=== PATIENT | male | born 1970 | race Caucasian/White ===

== ENCOUNTER 2017-12-30 14:41 | Emergency (ER) | payer OTHER ==
[2017-12-30] MEDS ORDERED: HYDROCODONE/CHLORPHEN 5 ML/OSYR ONE (15:33)
--- NOTE | 2017-12-30 15:50 | RAD REPORT ---
EXAM DESCRIPTION: RAD - Chest Pa And Lat (2 Views) - 12/30/2017 3:43 pm CLINICAL HISTORY: Pneumonia Chest pain. COMPARISON: Chest Single View dated 09/01/2016; CHEST SINGLE VIEW dated 03/12/2014; CHEST SINGLE VIEW dated 07/20/2013; CHEST PA AND LAT 2 VIEW dated 07/05/2013 FINDINGS: The lungs are clear. The heart is normal in size. No displaced fractures. IMPRESSION: No acute or concerning finding suspected.
[2017-12-30] MEDS ORDERED: ACETAMINOPHEN 500 MG TAB ONE (16:20)
--- NOTE | 2017-12-30 16:20 | ER ---
Nurse's Notes [facility] Name: Kleber Cornejo Jr Age: 47 yrs Sex: Male : 1970 Arrival Date: 12/30/2017 Time: 14:44 Bed 30 Private MD: Diagnosis: Acute sinusitis;Bronchitis, not specified as acute or chronic Presentation: 12/30 15:00 Presenting complaint: Patient states: Cough, cold, congestion for 2 days. Transition of care: patient was not received from another setting of care. Onset of symptoms was December 28, 2017. Risk Assessment: Do you want to hurt yourself or someone else? Patient reports no desire to harm self or others. Initial Sepsis Screen: Does the patient meet any 2 criteria? No. Patient's initial sepsis screen is negative. Does the patient have a suspected source of infection? No. Patient's initial sepsis screen is negative. Care prior to arrival: None. 15:00 Method Of Arrival: Ambulatory aj 15:00 Acuity: BRANDON 2 aj Triage Assessment: 15:01 General: Appears in no apparent distress. ill, Behavior is calm, cooperative, aj appropriate for age. Pain: Denies pain. EENT: Reports nasal congestion nasal discharge. Neuro: Level of Consciousness is awake, alert, obeys commands, Oriented to person, place, time, situation, Appropriate for age. Respiratory: Airway is patent Respiratory effort is even, unlabored, Respiratory pattern is regular, symmetrical. Respiratory: Reports cough that is productive. Derm: Skin is intact, is healthy with good turgor, Skin is pink, warm \T\ dry. normal. Historical: - Allergies: 15: No Known Allergies; aj - Home Meds: 15: aspirin 81 mg Oral TbEC 1 tab once daily [Active]; losartan Oral [Active]; aj - PMHx: 15:01 Hypertension; aj - PSHx: 15:01 Hernia repair; Tonsillectomy; aj - Immunization history:: Adult Immunizations up to date. - Social history:: Smoking status: Patient/guardian denies using tobacco, Patient uses alcohol, on a daily basis. - Ebola Screening: : Patient negative for fever greater than or equal to 101.5 degrees Fahrenheit, and additional compatible Ebola Virus Disease symptoms Patient denies exposure to infectious person Patient denies travel to an Ebola-affected area in the 21 days before illness onset No symptoms or risks identified at this time. Screenin:33 Abuse screen: Denies threats or abuse. Denies injuries from another. Nutritional mg2 screening: No deficits noted. Tuberculosis screening: No symptoms or risk factors identified. Fall Risk None identified. Assessment: 15:34 General: Appears in no apparent distress. comfortable, Behavior is calm, cooperative. mg2 Pain: Complains of pain in whole body Pain does not radiate. Pain currently is 4 out of 10 on a pain scale. Quality of pain is described as aching, Pain began gradually, 2-3 days ago. Neuro: Level of Consciousness is awake, alert, obeys commands, Oriented to person, place, time, situation. Cardiovascular: Capillary refill < 3 seconds Patient's skin is warm and dry. Respiratory: Airway is patent Respiratory effort is even, unlabored, Respiratory pattern is regular, symmetrical. GI: No signs and/or symptoms were reported involving the gastrointestinal system. : No signs and/or symptoms were reported regarding the genitourinary system. EENT: No signs and/or symptoms were reported regarding the EENT system. Derm: Skin is intact, Skin is pink, warm \T\ dry. normal. Musculoskeletal: No signs and/or symptoms reported regarding the musculoskeletal system. 16:30 Reassessment: Patient appears in no apparent distress at this time. Patient and/or mg2 family updated on plan of care and expected duration. Pain level reassessed. Patient is alert, oriented x 3, equal unlabored respirations, skin warm/dry/pink. Vital Signs: 15:01 BP 170 / 98; Pulse 68; Resp 16; Temp 98.7; Pulse Ox 99% on R/A; Weight 158.76 kg; aj Height 6 ft. 4 in. (193.04 cm); 15:36 BP 157 / 100; Pulse 75; Resp 18; Pulse Ox 100% on R/A; mg2 16:30 BP 160 / 90; Pulse 70; Resp 18; Pulse Ox 100% on R/A; mg2 15:01 Body Mass Index 42.60 (158.76 kg, 193.04 cm) aj ED Course: 14:44 Patient arrived in ED. mr 15:00 Triage completed. aj 15:01 Arm band placed on left wrist. Patient placed in an exam room. aj 15:04 Daniel Hooks, RN is Primary Nurse. mg2 15:07 Memo, Marilyn, HEAD OF ART-[facility]. snw 15:07 Erik Santos MD is Attending Physician. snw 15:36 Patient has correct armband on for positive identification. Call light in reach. Pulse mg2 ox on. NIBP on. Door closed. Warm blanket given. Administered Medications: 15:33 Drug: Tussionex Pennkinetic ER 5 ml Route: PO; mg2 16:24 Follow up: Response: No adverse reaction; Marked relief of symptoms mg2 16:16 Drug: Tylenol 1000 mg Route: PO; dm5 16:24 Follow up: Response: No adverse reaction; Medication administered at discharge. mg2 16:16 Not Given (Duplicate Order): Tylenol 650 mg PO once dm5 Outcome: 16:19 Discharge ordered by . snw 16:31 Patient left the ED. mg2 Signatures: Ariana Dan RN RN dmRosalee Ybarra RN RN aj Therrien, Shelly, FNP-C HEAD OF ART-[facility] Janey Hopkins Michele, RN RN mg2 Corrections: (The following items were deleted from the chart) 15:03 15:01 BP 170 / 112; Pulse 68bpm; Resp 16bpm; Pulse Ox 99% RA; Temp 98.7F; 158.76 kg; aj Height 6 ft. 4 in.; BMI: 42.6; aj
--- NOTE | 2017-12-30 16:20 | EDPHYS ---
Physician Documentation [facility] Name: Kleber Cornejo Jr Age: 47 yrs Sex: Male : 1970 Arrival Date: 12/30/2017 Time: 14:44 Bed 30 Private MD: ED Physician Erik Santos HPI: 12/30 15:21 This 47 yrs old Male presents to ER via Ambulatory with complaints of Flu snw Symptoms. 15:21 The patient or guardian reports cough, flu symptoms, arthralgias, myalgias, no snw appetite. Onset: The symptoms/episode began/occurred suddenly, 3 day(s) ago, and became persistent. Associated signs and symptoms: Pertinent positives: rhinorrhea. Severity of symptoms: At their worst the symptoms were moderate. The patient has experienced a previous episode. The patient has not recently seen a physician. Historical: - Allergies: 15:01 No Known Allergies; aj - Home Meds: 15:01 aspirin 81 mg Oral TbEC 1 tab once daily [Active]; losartan Oral [Active]; aj - PMHx: 15:01 Hypertension; aj - PSHx: 15:01 Hernia repair; Tonsillectomy; aj - Immunization history:: Adult Immunizations up to date. - Social history:: Smoking status: Patient/guardian denies using tobacco, Patient uses alcohol, on a daily basis. - Ebola Screening: : Patient negative for fever greater than or equal to 101.5 degrees Fahrenheit, and additional compatible Ebola Virus Disease symptoms Patient denies exposure to infectious person Patient denies travel to an Ebola-affected area in the 21 days before illness onset No symptoms or risks identified at this time. ROS: 15:19 Eyes: Negative for injury, pain, redness, and discharge, ENT: Negative for injury, snw pain, and discharge, Neck: Negative for injury, pain, and swelling, Cardiovascular: Negative for chest pain, palpitations, and edema. 15:19 Abdomen/GI: Negative for abdominal pain, nausea, vomiting, diarrhea, and constipation, Back: Negative for injury and pain, : Negative for injury, bleeding, discharge, and swelling, MS/Extremity: Negative for injury and deformity, Skin: Negative for injury, rash, and discoloration, Neuro: Negative for headache, weakness, numbness, tingling, and seizure. 15:19 Constitutional: Positive for body aches, fatigue, malaise, poor PO intake. 15:19 Respiratory: Positive for cough, with green sputum. Exam: 15:15 Head/Face: Normocephalic, atraumatic. Eyes: Pupils equal round and reactive to light, snw extra-ocular motions intact. Lids and lashes normal. Conjunctiva and sclera are non-icteric and not injected. Cornea within normal limits. Periorbital areas with no swelling, redness, or edema. ENT: Nares patent. No nasal discharge, no septal abnormalities noted. Tympanic membranes are normal and external auditory canals are clear. Oropharynx with no redness, swelling, or masses, exudates, or evidence of obstruction, uvula midline. Mucous membranes moist. Neck: Trachea midline, no thyromegaly or masses palpated, and no cervical lymphadenopathy. Supple, full range of motion without nuchal rigidity, or vertebral point tenderness. No Meningismus. Chest/axilla: Normal chest wall appearance and motion. Nontender with no deformity. No lesions are appreciated. Cardiovascular: Regular rate and rhythm with a normal S1 and S2. No gallops, murmurs, or rubs. Normal PMI, no JVD. No pulse deficits. 15:15 Abdomen/GI: Soft, non-tender, with normal bowel sounds. No distension or tympany. No guarding or rebound. No evidence of tenderness throughout. Back: No spinal tenderness. No costovertebral tenderness. Full range of motion. Skin: Warm, dry with normal turgor. Normal color with no rashes, no lesions, and no evidence of cellulitis. MS/ Extremity: Pulses equal, no cyanosis. Neurovascular intact. Full, normal range of motion. Neuro: Awake and alert, GCS 15, oriented to person, place, time, and situation. Cranial nerves II-XII grossly intact. Motor strength 5/5 in all extremities. Sensory grossly intact. Cerebellar exam normal. Normal gait. Psych: Awake, alert, with orientation to person, place and time. Behavior, mood, and affect are within normal limits. 15:15 Constitutional: The patient appears alert, obese, uncomfortable. 15:15 Respiratory: the patient does not display signs of respiratory distress, Respirations: normal, Breath sounds: + upper airway congestion. wheezing: Vital Signs: 15:01 BP 170 / 98; Pulse 68; Resp 16; Temp 98.7; Pulse Ox 99% on R/A; Weight 158.76 kg; aj Height 6 ft. 4 in. (193.04 cm); 15:36 BP 157 / 100; Pulse 75; Resp 18; Pulse Ox 100% on R/A; mg2 16:30 BP 160 / 90; Pulse 70; Resp 18; Pulse Ox 100% on R/A; mg2 15:01 Body Mass Index 42.60 (158.76 kg, 193.04 cm) aj MDM: 15:08 Patient medically screened. snw 16:23 Data reviewed: vital signs, nurses notes. Data interpreted: Pulse oximetry: on room air snw is 100 %. Counseling: I had a detailed discussion with the patient and/or guardian regarding: the historical points, exam findings, and any diagnostic results supporting the discharge/admit diagnosis, the presence of at least one elevated blood pressure reading (>120/80) during this emergency department visit, radiology results, the need for outpatient follow up, to return to the emergency department if symptoms worsen or persist or if there are any questions or concerns that arise at home. Special discussion: I have referred the patient to see his PCP for further evaluation of high blood pressure. Based on the history and exam findings, there is no indication for further emergent testing or inpatient evaluation. I discussed with the patient/guardian the need to see the primary care provider for further evaluation of the symptoms. 12/30 15:03 Order name: Flu aj 12/30 15:21 Order name: Chest Pa And Lat (2 Views) XRAY snw 12/30 16:04 Order name: RAD; Complete Time: 16:13 EDMS Administered Medications: 15:33 Drug: Tussionex Pennkinetic ER 5 ml Route: PO; mg2 16:24 Follow up: Response: No adverse reaction; Marked relief of symptoms mg2 16:16 Drug: Tylenol 1000 mg Route: PO; dm5 16:24 Follow up: Response: No adverse reaction; Medication administered at discharge. mg2 16:16 Not Given (Duplicate Order): Tylenol 650 mg PO once dm5 Disposition: 16:33 Co-signature as Attending Physician, Erik Santos MD. rn Disposition: 12/30/17 16:19 Discharged to Home. Impression: Acute sinusitis, Bronchitis, not specified as acute or chronic. - Condition is Stable. - Discharge Instructions: Acute Bronchitis, Adult, Hypertension, Sinusitis, Adult. - Prescriptions for Tessalon Perles 100 mg Oral Capsule - take 1 capsule by ORAL route every 8 hours As needed; 15 capsule. Prednisone 20 mg Oral Tablet - take 2 tablet by ORAL route once daily for 5 days; 10 tablet. Albuterol Sulfate 90 mcg/actuation - inhale 1-2 puff by INHALATION route every 4-6 hours; 1 Inhaler. - Work release form, Medication Reconciliation Form, Thank You Letter, Antibiotic Education, Prescription Opioid Use form. - Follow up: Emergency Department; When: As needed; Reason: Worsening of condition. Follow up: Private Physician; When: As needed; Reason: Recheck today's complaints, Continuance of care, Re-evaluation by your physician. Signatures: Dispatcher [employer] EDAriana Blandon, RN RN dmRosalee Ybarra RN RN aj Therrien, Shelly, JUNIOR ASSISTANT MANAGER-C JUNIOR ASSISTANT MANAGER-[employer] Erik Santos MD MD rn Gardose, Michele, RN RN mg2 Corrections: (The following items were deleted from the chart) 16:31 16:19 12/30/2017 16:19 Discharged to Home. Impression: Acute sinusitis; Bronchitis, not mg2 specified as acute or chronic. Condition is Stable. Forms are Medication Reconciliation Form, Thank You Letter, Antibiotic Education, Prescription Opioid Use. Follow up: Emergency Department; When: As needed; Reason: Worsening of condition. Follow up: Private Physician; When: As needed; Reason: Recheck today's complaints, Continuance of care, Re-evaluation by your physician. snw
[2017-12-30 17:03] VITALS: TEMP 98.7
[2017-12-30 17:05] VITALS: O2SAT 100
[2017-12-30 17:06] VITALS: BP 160/90
== END 2017-12-30 16:31 | disposition home or self-care (01) ==
LOC: ER 14:41
DX: J40 Bronchitis, not specified as acute or chronic (principal); J01.90 Acute sinusitis, unspecified; I10 Essential (primary) hypertension
CPT/HCPCS: 71046; 87804; 99283

== ENCOUNTER 2018-02-19 04:10 | Emergency (ER) | payer OTHER ==
[2018-02-19] MEDS ORDERED: ALBUTEROL 2.5 MG/3 ML NEB SOL ONE (04:43)
[2018-02-19] MEDS ORDERED: IPRATROPIUM BROM 0.5MG/2.5ML ONE (04:43)
[2018-02-19] MEDS ORDERED: IBUPROFEN 200 MG TAB PO ONE (04:44)
[2018-02-19] MEDS ORDERED: IBUPROFEN 400 MG TAB ONE (04:44)
[2018-02-19] MEDS ORDERED: ACETAMINOPHEN 500 MG TAB ONE (04:45)
[2018-02-19 06:11] LABS: Absolute Lymphocytes (CBC) 0.8 K/uL (0.7-4.9); Absolute Monocytes 0.3 K/uL (0.1-1.3); Absolute Neutrophil 2.2 K/uL (1.8-8.0); Basophils % 0.4 % (0-1.3); Eosinophils % 3.5 % (0-4.4); Hematocrit 42.2 % (39.6-49.0); Lymphocytes % 23.3 % (15.3-44.8); MCH 32.9 pg (27.0-35.0); MCV 94.9 fL (80-100); MPV 7.5 fL (7.6-11.3); Monocytes % 9.3 % (3.3-12.3); Protime INR 0.97; RBC Red Blood Cell Count 4.45 M/uL (4.33-5.43)
[2018-02-19 06:27] LABS: ALT/SGPT 30 U/L (12-78); AST/SGOT 21 U/L (15-37); Albumin 3.7 g/dL (3.4-5.0); Alkaline Phosphatase 54 U/L (45-117); BUN Blood Urea Nitrogen 18 mg/dL (7-18); Bicarbonate 25 mmol/L (21-32); Bilirubin Direct 0.2 mg/dL (0-0.2); Bilirubin Total 0.7 mg/dL (0.2-1.0); Glucose Level 114 mg/dL (74-106); NT PRO-BNP 477 pg/mL (<125); Potassium 4.4 mmol/L (3.5-5.1); Protein, Total 7.6 g/dL (6.4-8.2); Sodium Level 138 mmol/L (136-145); Troponin (Emerg Dept Use Only) < 0.02 ng/mL (0.0-0.045)
--- NOTE | 2018-02-19 07:37 | RAD REPORT ---
EXAM DESCRIPTION: CT - Chest For Pe Angio - 02/19/2018 7:04 am CLINICAL HISTORY: Chest pain COMPARISON: None. TECHNIQUE: Dynamically enhanced axial 3 mm thick images of the chest were obtained during administra tion of <100> mL Isovue 370 IV contrast. Coronal and oblique reconstruction images were generated and reviewed. Exam utilizes a protocol for optimal evaluation of pulmonary arterial tree. Maximum intensity projections 3D imaging was utilized All CT scans are performed using dose optimization technique as appropriate and may include automated exposure control or mA/KV adjustment according to patient size. FINDINGS: The opacification of pulmonary arteries is somewhat suboptimal. A pulmonary embolus is not seen. A thoracic aortic aneurysm is not noted. A pleural effusion is not seen. A pericardial effusion is not seen. A lung consolidation is not present. IMPRESSION: Negative for a pulmonary embolism.
--- NOTE | 2018-02-19 07:38 | RAD REPORT ---
EXAM DESCRIPTION: Christos Ferreira (2 Views)02/19/2018 5:09 am CLINICAL HISTORY: Cough COMPARISON: 2017 FINDINGS: The lungs appear clear of acute infiltrate. The heart is normal size IMPRESSION: No acute abnormalities displayed
--- NOTE | 2018-02-19 08:51 | ER ---
Nurse's Notes [facility] Name: Kleber Cornejo Jr Age: 47 yrs Sex: Male : 1970 Arrival Date: 02/19/2018 Time: 04:14 Bed 17 Private MD: Diagnosis: Pleurisy;Acute upper respiratory infection, unspecified Presentation: 02/19 04:23 Presenting complaint: Patient states: left sided chest pain for 2 days,pain score of rr5 7/10 non radiating. cough for 2 1/2 weeks. Transition of care: patient was not received from another setting of care. Onset of symptoms was February 17, 2018. Risk Assessment: Do you want to hurt yourself or someone else? Patient reports no desire to harm self or others. Initial Sepsis Screen: Does the patient meet any 2 criteria? No. Patient's initial sepsis screen is negative. Does the patient have a suspected source of infection? No. Patient's initial sepsis screen is negative. Care prior to arrival: None. 04:23 Method Of Arrival: Ambulatory rr5 04:23 Acuity: BRANDON 3 rr5 Triage Assessment: 04:28 General: Appears in no apparent distress. comfortable, Behavior is calm, cooperative. rr5 Pain: Complains of pain in left sided Pain does not radiate. Pain currently is 7 out of 10 on a pain scale. Quality of pain is described as sharp, Pain began 2-3 days ago. Is intermittent, Aggravated by increased activity. EENT: No signs and/or symptoms were reported regarding the EENT system. Neuro: Level of Consciousness is awake, alert, obeys commands, Oriented to person, place, time, situation. Cardiovascular: Reports chest pain, Capillary refill < 3 seconds. Respiratory: Airway is patent. GI: No signs and/or symptoms were reported involving the gastrointestinal system. : No signs and/or symptoms were reported regarding the genitourinary system. Derm: No signs and/or symptoms reported regarding the dermatologic system. Musculoskeletal: Capillary refill < 3 seconds, Range of motion: intact in all extremities. Historical: - Allergies: 04:28 molds; rr5 - Home Meds: 04:28 aspirin 81 mg Oral TbEC 1 tab once daily [Active]; losartan Oral [Active]; Vitamin B-12 rr5 1,000 mcg Oral tab [Active]; - PMHx: 04:28 Hypertension; rr5 - Immunization history:: Adult Immunizations not up to date, Flu vaccine is not up to date. - Social history:: Patient/guardian denies using Smoking status: Patient/guardian denies using tobacco. - Ebola Screening: : Patient negative for fever greater than or equal to 101.5 degrees Fahrenheit, and additional compatible Ebola Virus Disease symptoms Patient denies exposure to infectious person Patient denies travel to an Ebola-affected area in the 21 days before illness onset. - Family history:: not pertinent. - Hospitalizations: : No recent hospitalization is reported. Screenin:47 Abuse screen: Denies threats or abuse. Denies injuries from another. Nutritional rr5 screening: No deficits noted. On. Tuberculosis screening: No symptoms or risk factors identified. Fall Risk None identified. Assessment: 04:42 General: Appears in no apparent distress. comfortable, Behavior is calm, cooperative. rr5 Pain: Complains of pain in left side of the chest Pain does not radiate. Pain currently is 7 out of 10 on a pain scale. Quality of pain is described as sharp, Pain began 2-3 days ago. Is intermittent. Neuro: Level of Consciousness is awake, alert, obeys commands, Oriented to person, place, time, situation. Cardiovascular: Reports chest pain, since 2 days Capillary refill < 3 seconds Patient's skin is warm and dry. Respiratory: Airway is patent. GI: No signs and/or symptoms were reported involving the gastrointestinal system. Abdomen is round. : No signs and/or symptoms were reported regarding the genitourinary system. EENT: No signs and/or symptoms were reported regarding the EENT system. Derm: No signs and/or symptoms reported regarding the dermatologic system. Musculoskeletal: Capillary refill < 3 seconds, Range of motion: intact in all extremities. 06:00 Reassessment: No changes from previously documented assessment. reassess by dr. sebastian grissom with orders and carried out. Patient states symptoms have not improved. 07:15 Reassessment: Patient appears in no apparent distress at this time. Patient and/or em family updated on plan of care and expected duration. Pain level reassessed. Patient is alert, oriented x 3, equal unlabored respirations, skin warm/dry/pink. Patient states feeling better. 08:30 Reassessment: Patient appears in no apparent distress at this time. Patient and/or em family updated on plan of care and expected duration. Pain level reassessed. Patient is alert, oriented x 3, equal unlabored respirations, skin warm/dry/pink. pending dispo. Vital Signs: 04:20 BP 154 / 94; Pulse 96; Resp 18; Temp 98.7(O); Pulse Ox 96% on R/A; Weight 158.76 kg; rr5 Height 6 ft. 1 in. (185.42 cm); Pain 7/10; 06:20 BP 155 / 108; Pulse 65; Resp 17; Pulse Ox 96% on R/A; Pain 5/10; rr5 07:15 BP 139 / 90; Pulse 64; Resp 18; Pulse Ox 98% on R/A; Pain 4/10; em 08:30 BP 157 / 88; Pulse 61; Resp 18; Pulse Ox 99% on R/A; Pain 4/10; em 04:20 Body Mass Index 46.18 (158.76 kg, 185.42 cm) rr5 ED Course: 04:14 Patient arrived in ED. es 04:16 Sebastian Felix MD is Attending Physician. wa 04:17 Osbaldo Blanchard RN is Primary Nurse. rr5 04:25 Triage completed. rr5 04:40 Arm band placed on. rr5 04:40 Pulse ox on. NIBP on. rr5 04:40 Door closed. rr5 04:41 Initial Neb Treatment Given as ordered Patient was instructed and evaluated on rr5 procedure. 04:44 Radiology exam delayed due to patient receiving breathing treatment at this time. sg4 04:47 Patient has correct armband on for positive identification. Bed in low position. Call rr5 light in reach. 05:[address] via wheelchair. rr5 05:06 X-ray completed. Patient moved to radiology via wheelchair. sg4 05:06 X-ray completed. Patient tolerated procedure well. sg4 05:08 Patient moved back from radiology. sg4 05:09 Chest Pa And Lat (2 Views) XRAY In Process Unspecified. EDMS 05:11 Patient moved back from CT. rr5 06:00 traffic monitor specialist on. Pulse ox on. NIBP on. rr5 06:00 Inserted saline lock: 20 gauge in left forearm, using aseptic technique. Blood rr5 collected. 06:[address] via wheelchair. rr5 07:03 Report given to michael RN and iban RN. rr5 07:05 Chest For Pe Angio In Process Unspecified. EDIL 08:43 Attending Physician role handed off by Sebastian Felix MD cha 08:43 Rene Pearson MD is Attending Physician. edda 09:07 No provider procedures requiring assistance completed. IV discontinued, intact, em bleeding controlled, No redness/swelling at site. Pressure dressing applied. Administered Medications: 04:40 Drug: Motrin 600 mg Route: PO; rr5 06:20 Follow up: Response: No adverse reaction; Pain is unchanged, physician notified rr5 04:40 Drug: Tylenol 1000 mg Route: PO; rr5 06:19 Follow up: Response: Pain is unchanged, physician notified rr5 04:41 Drug: Albuterol 2.5 mg Route: Inhalation; rr5 04:41 Drug: AtroVENT Aerosol 0.5 mg Route: Inhalation; rr5 09:01 Drug: Zithromax 500 mg Route: PO; em 09:06 Follow up: Response: Medication administered at discharge. em Outcome: 08:51 Discharge ordered by . [facility] 09:07 Discharged to home ambulatory. em 09:07 Condition: good 09:07 Discharge instructions given to patient, Instructed on discharge instructions, follow up and referral plans. medication usage, Demonstrated understanding of instructions, follow-up care, medications, Prescriptions given X 2. 09:10 Patient left the ED. em Signatures: Dispatcher [employer] [facility] Rene Pearson MD MD cha Salyer, Iban Montero, AUTOMOTIVE DESIGN DRAFTER AUTOMOTIVE DESIGN DRAFTER em Sebastian Felix MD MD wa Garcia, Susana 4 Osbaldo Blanchard, RN RN rr5
--- NOTE | 2018-02-19 08:51 | EDPHYS ---
Physician Documentation [facility] Name: Kleber Cornejo Jr Age: 47 yrs Sex: Male : 1970 Arrival Date: 02/19/2018 Time: 04:14 Bed 17 Private MD: ED Physician Rene Pearson HPI: 02/19 06:41 This 47 yrs old Male presents to ER via Ambulatory with complaints of Cold wa Symptoms, Cough, Sharp pain in side when cough. 06:41 The patient or guardian reports cough, that is constant, with productive sputum, that wa is green, that is yellow. Onset: The symptoms/episode began/occurred 2 week(s) ago, now with severe L lower rib pain with cough x 3 days. Severity of symptoms: At their worst the symptoms were moderate, in the emergency department the symptoms are actually worse. Modifying factors: The symptoms are alleviated by nothing, the symptoms are aggravated by nothing. Associated signs and symptoms: Pertinent positives: SOB, Pertinent negatives: chest pain, diarrhea, fever, rhinorrhea, sore throat, vomiting. The patient has not experienced similar symptoms in the past. The patient has not recently seen a physician. Historical: - Allergies: 04:28 molds; rr5 - Home Meds: 04:28 aspirin 81 mg Oral TbEC 1 tab once daily [Active]; losartan Oral [Active]; Vitamin B-12 rr5 1,000 mcg Oral tab [Active]; - PMHx: 04:28 Hypertension; rr5 - Immunization history:: Adult Immunizations not up to date, Flu vaccine is not up to date. - Social history:: Patient/guardian denies using Smoking status: Patient/guardian denies using tobacco. - Ebola Screening: : Patient negative for fever greater than or equal to 101.5 degrees Fahrenheit, and additional compatible Ebola Virus Disease symptoms Patient denies exposure to infectious person Patient denies travel to an Ebola-affected area in the 21 days before illness onset. - Family history:: not pertinent. - Hospitalizations: : No recent hospitalization is reported. ROS: 06:43 Constitutional: Negative for fever, chills, and weight loss, Eyes: Negative for injury, wa pain, redness, and discharge, ENT: Negative for injury, pain, and discharge, Neck: Negative for injury, pain, and swelling, Abdomen/GI: Negative for abdominal pain, nausea, vomiting, diarrhea, and constipation, : Negative for injury, bleeding, discharge, and swelling, Skin: Negative for injury, rash, and discoloration, Neuro: Negative for headache, weakness, numbness, tingling, and seizure, Psych: Negative for depression, anxiety, suicide ideation, homicidal ideation, and hallucinations. 06:43 Cardiovascular: Negative for chest pain, edema, palpitations. 06:43 Respiratory: Positive for cough, shortness of breath, at rest. 06:43 MS/extremity: Positive for pain, of the L lower rib cage with cough. 06:43 All other systems are negative. Exam: 06:44 Constitutional: This is a well developed, well nourished patient who is awake, alert, wa and in no acute distress. Head/Face: Normocephalic, atraumatic. Eyes: Pupils equal round and reactive to light, extra-ocular motions intact. Lids and lashes normal. Conjunctiva and sclera are non-icteric and not injected. Cornea within normal limits. Periorbital areas with no swelling, redness, or edema. ENT: Nares patent. No nasal discharge, no septal abnormalities noted. Tympanic membranes are normal and external auditory canals are clear. Oropharynx with no redness, swelling, or masses, exudates, or evidence of obstruction, uvula midline. Mucous membranes moist. Neck: Trachea midline, no thyromegaly or masses palpated, and no cervical lymphadenopathy. Supple, full range of motion without nuchal rigidity, or vertebral point tenderness. No Meningismus. Cardiovascular: Regular rate and rhythm with a normal S1 and S2. No gallops, murmurs, or rubs. Normal PMI, no JVD. No pulse deficits. Abdomen/GI: Soft, non-tender, with normal bowel sounds. No distension or tympany. No guarding or rebound. No evidence of tenderness throughout. Back: No spinal tenderness. No costovertebral tenderness. Full range of motion. Skin: Warm, dry with normal turgor. Normal color with no rashes, no lesions, and no evidence of cellulitis. MS/ Extremity: Pulses equal, no cyanosis. Neurovascular intact. Full, normal range of motion. Neuro: Awake and alert, GCS 15, oriented to person, place, time, and situation. Cranial nerves II-XII grossly intact. Motor strength 5/5 in all extremities. Sensory grossly intact. Cerebellar exam normal. Normal gait. Psych: Awake, alert, with orientation to person, place and time. Behavior, mood, and affect are within normal limits. 06:44 Chest/axilla: Inspection: normal, Palpation: tenderness, that is mild. 06:44 Respiratory: the patient does not display signs of respiratory distress, Respirations: normal, Breath sounds: coarse breath sounds bilaterally. scattered wheezes. 08:51 Musculoskeletal/extremity: DVT Exam: No signs of deep vein thrombosis. no pain, no edda swelling, no tenderness, negative Homans' sign noted on exam, no appreciated bluish discoloration, no erythema, no increased warmth. Vital Signs: 04:20 BP 154 / 94; Pulse 96; Resp 18; Temp 98.7(O); Pulse Ox 96% on R/A; Weight 158.76 kg; rr5 Height 6 ft. 1 in. (185.42 cm); Pain 7/10; 06:20 BP 155 / 108; Pulse 65; Resp 17; Pulse Ox 96% on R/A; Pain 5/10; rr5 07:15 BP 139 / 90; Pulse 64; Resp 18; Pulse Ox 98% on R/A; Pain 4/10; em 08:30 BP 157 / 88; Pulse 61; Resp 18; Pulse Ox 99% on R/A; Pain 4/10; em 04:20 Body Mass Index 46.18 (158.76 kg, 185.42 cm) rr5 MDM: 04:16 Patient medically screened. ut 06:47 Differential Diagnosis: Bronchitis Pneumonia Other PE, pneumothorax. Data reviewed: ut vital signs, nurses notes. Test interpretation: by ED physician or midlevel provider: EKG: HR 61. frequent PVCs. LAFB. 08:43 Patient medically screened. edda 02/19 05:49 Order name: Basic Metabolic Panel; Complete Time: 07:24 ut 02/19 05:49 Order name: CBC with Diff; Complete Time: 07:24 ut 02/19 05:49 Order name: LFT's; Complete Time: 07:24 ut 02/19 05:49 Order name: NT PRO-BNP; Complete Time: 07:24 ut 02/19 05:49 Order name: PT-INR; Complete Time: 07:24 ut 02/19 05:49 Order name: Troponin (emerg Dept Use Only); Complete Time: 07:24 ut 02/19 04:33 Order name: Chest Pa And Lat (2 Views) XRAY; Complete Time: 08:47 ut 02/19 06:54 Order name: Chest For Pe Angio; Complete Time: 08:14 EDMS 02/19 05:49 Order name: EKG; Complete Time: 05:50 ut 02/19 05:49 Order name: Cardiac monitoring; Complete Time: 06:19 ut 02/19 05:49 Order name: EKG - Nurse/Tech; Complete Time: 06:19 ut 02/19 05:49 Order name: IV Saline Lock; Complete Time: 06:19 ut 02/19 05:49 Order name: Labs collected and sent; Complete Time: 06:19 ut 02/19 05:49 Order name: O2 Per Protocol; Complete Time: 06:19 ut 02/19 05:49 Order name: O2 Sat Monitoring; Complete Time: 06:19 ut Administered Medications: 04:40 Drug: Motrin 600 mg Route: PO; rr5 06:20 Follow up: Response: No adverse reaction; Pain is unchanged, physician notified rr5 04:40 Drug: Tylenol 1000 mg Route: PO; rr5 06:19 Follow up: Response: Pain is unchanged, physician notified rr5 04:41 Drug: Albuterol 2.5 mg Route: Inhalation; rr5 04:41 Drug: AtroVENT Aerosol 0.5 mg Route: Inhalation; rr5 09:01 Drug: Zithromax 500 mg Route: PO; em 09:06 Follow up: Response: Medication administered at discharge. em Disposition: 02/19/18 08:51 Discharged to Home. Impression: Pleurisy, Acute upper respiratory infection, unspecified. - Condition is Stable. - Discharge Instructions: Pleurisy, Upper Respiratory Infection, Adult, Upper Respiratory Infection, Adult, [id number], Cough, Adult. - Prescriptions for Cheratussin AC 10- 100 mg/5 mL Oral liquid - take 10 milliliter by ORAL route every 4 hours; 180 milliliter. Ibuprofen 600 mg Oral Tablet - take 1 tablet by ORAL route every 8 hours As needed take with food; 21 tablet. Zithromax 500 mg Oral Tablet - take 1 tablet by ORAL route once daily for 5 days; 5 tablet. - Medication Reconciliation Form, Thank You Letter, Antibiotic Education, Prescription Opioid Use, Work release form form. - Follow up: Private Physician; When: 2 - 3 days; Reason: Recheck today's complaints, Continuance of care, Re-evaluation by your physician. - Problem is new. - Symptoms have improved. Signatures: Dispatcher [employer] [facility] Rene Pearson MD MD cha Munoz, Iban, CAR FERRY MASTER CAR FERRY MASTER em Fabien Felix MD MD wa Roque, Raymond, RN RN rr5 Corrections: (The following items were deleted from the chart) 06:54 05:50 Chest Angio+CT.RAD.BRZ ordered. [facility] 09:10 08:51 02/19/2018 08:51 Discharged to Home. Impression: Pleurisy; Acute upper em respiratory infection, unspecified. Condition is Stable. Forms are Medication Reconciliation Form, Thank You Letter, Antibiotic Education, Prescription Opioid Use. Follow up: Private Physician; When: 2 - 3 days; Reason: Recheck today's complaints, Continuance of care, Re-evaluation by your physician. Problem is new. Symptoms have improved. edda
[2018-02-19] MEDS ORDERED: AZITHROMYCIN 250 MG TAB ONE (09:07)
[2018-02-19 09:22] VITALS: TEMP 98.7
[2018-02-19 09:25] VITALS: BP 157/88; O2SAT 99
--- NOTE | 2018-02-19 18:48 | EKG ---
Test Date: 2018-02-19 Test Time: 06:11:57 Keyboarding Teacher: RR MEASUREMENT RESULTS: Intervals: Rate: 61 MA: 206 QRSD: 104 QT: 430 QTc: 432 Orange: P: 50 MA: 206 QRS: -55 T: 79 INTERPRETIVE STATEMENTS: Sinus rhythm with frequent premature ventricular complexes Left anterior fascicular block Inferior infarct, age undetermined Cannot rule out Anterior infarct, age undetermined Abnormal ECG Compared to ECG 09/01/2016 17:19:38 Sinus bradycardia no longer present Myocardial infarct finding still present Electronically Signed On 02-19-18 18:45:01 SOFTWARE QUALITY TEST ENGINEER by Ramon Marquez
== END 2018-02-19 09:10 | disposition home or self-care (01) ==
LOC: ER 04:10
DX: J06.9 Acute upper respiratory infection, unspecified (principal); R09.1 Pleurisy; I10 Essential (primary) hypertension; Z79.82 Long term (current) use of aspirin; Z91.048 Other nonmedicinal substance allergy status
CPT/HCPCS: 36415; 71046; 71275; 80048; 80076; 83880; 84484; 85025; 85610; 93005; 99285; Q9967

== ENCOUNTER 2019-08-16 04:35 | Emergency (ER) | payer OTHER ==
--- OUTSIDE RECORDS SUMMARY | 2019-08-16 04:37 | XMS REPORT ---
:1970 Author Organization [facility] t Address [address] [place] [address] Dr. Cunningham [address] [place] [id number] Care Team Providers Name Role Phone Unavailable Unavailable Unavailable Problems This patient has no known problems. Allergies, Adverse Reactions, Alerts This patient has no known allergies or adverse reactions. Medications This patient has no known medications.
--- OUTSIDE RECORDS SUMMARY | 2019-08-16 04:37 | XMS REPORT | Summary of Care ---
:1970 Author Organization [facility] Address [address] [place] [address] Care Team Providers Name Role Phone Selvin Gallardo MD Primary Care Provider Reason for Referral (Routine) Status Reason Specialty Diagnoses / Referred By Referred To Procedures Contact Contact Authorized Location Otolaryngology Diagnoses Cellulitis of left internal cheek Cheek mass Personal history of tobacco use Alex Gallardo Preference Procedures CONSULT/REFERRAL ENT MD Ferdinand Cabral [address] [place] [phone] [place], [place] Phone: [phone] Phone: Reason for Visit Reason Comments Follow-up 6 month follow up Mouth/Lip Problem Spot in side of his mouth , swollen and hurts LAB WORK Encounter Details Date Type Department Care Team Description 11/23/2018 Office Visit [facility] [place] Family Selvin Gallardo ntial hypertension (Primary Dx); Medicine - Rosa Gooden MD Medication [facility] [address] [place] [address] Cellulitis of left internal cheek; [place], [place] Cheek mass; [phone] Personal history of tobacco use; [phone] Nutritional counseling; Exercise counseling Allergies No Known Allergiesdocumented as of this encounter (statuses as of 11/23/2018) Medications Medication Sig Dispensed Refills Start Date End Date Status vitamin B-12 (VITAMIN Take 1 tablet by 0 07/06/2017 Active B-12) 1,000 mcg tablet mouth daily. aspirin (ADULT LOW Take 81 mg by 0 Active DOSE ASPIRIN) 81 mg EC mouth daily. tablet losartan 100 mg Take 1 tablet by 90 tablet 3 05/24/2018 Active tabletIndications: mouth daily. Essential hypertension amoxicillin 875 mg Take 1 tablet by 20 tablet 0 11/23/2018 Active tabletIndications: mouth 2 (two) Cellulitis of left times daily for internal cheek 10 days. documented as of this encounter (statuses as of 11/23/2018) Active Problems Problem Noted Date B12 deficiency 07/06/2017 Leukopenia 06/04/2017 Abnormal liver function test 06/04/2017 Obesity Seasonal allergies Hypertension Overview: Diagnosed around 2015 Abnormal EKG documented as of this encounter (statuses as of 11/23/2018) Social History Tobacco Use Types Packs/Day Years Used Date Never Smoker Smokeless Tobacco: Former User Alcohol Use Drinks/Week oz/Week Comments Yes 21 Cans of beer 12.6 Sex Assigned at Date Recorded Not on file Job Start Date Occupation Industry Not on file Not on file Not on file Travel History Travel Start Travel End No recent travel history available. documented as of this encounter Last Filed Vital Signs Vital Sign Reading Time Taken Comments Blood Pressure 127/86 11/23/2018 9:12 AM CDT Pulse 61 11/23/2018 9:12 AM CDT Temperature 36.9 C (98.4 F) 11/23/2018 8:39 AM CDT Respiratory Rate - - Oxygen Saturation - - Inhaled Oxygen Concentration - - Weight 171 kg (377 lb) 11/23/2018 8:39 AM CDT Height 193 cm (6' 4") 11/23/2018 8:39 AM CDT Body Mass Index 45.89 11/23/2018 8:39 AM CDT documented in this encounter Patient Instructions Patient InstructionsSelvin Gallardo MD - 11/23/2018 8:30 AM CDT Mouth and Throat Tumors Finding out you have a tumor is scary. You may wonder what effect it will have on your life. As you and your doctors decide on your treatment, some of your concerns will be resolved. And moving forward, your healthcare team can help you learn ways to help yourself. What is a tumor? A tumor is a mass of abnormal cells. It is either benign (slow growing, not cancerous) or malignant (fast growing, cancerous). Some tumors, especially cancerous ones, can be life-threatening. But most tumors can be treated. Risk factors for a cancerous tumor You are more likely to get a tumor of the mouth or throat if you: Smoke cigarettes, pipes, or cigars Use chewing tobacco or snuff Drink alcohol Take poor care of your teeth Are exposed to certain industrial chemicals Had a mouth or throat tumor in the past Have a human papillomavirus (HPV) infection Signs and symptoms of a tumor in the mouth If you have a mouth tumor, you or your doctor may have noticed one or more of the following: White or red patches on tissues or gums Pain that doesnt go away A sore that doesnt heal in a week or two Bleeding that doesnt stop after a few days A swelling or lump that doesnt go away Problems with your teeth, dentures, or chewing Signs and symptoms of a tumor in the throat If you have a throat tumor, you or your doctor may have noticed one or more of the following: Hoarseness that doesnt go away Trouble swallowing A lump in your neck Pain that doesnt go away Aching, pain, or pressure in your ear Persistent coughing with or without bloody sputum Date Last Reviewed: 02/12/201619997176-6619 [address] [employer]. [address] [place] [address]. All rights reserved. This information is not intended as a substitute for professional medical care. Always follow your healthcare professional's instructions. Mouth and Throat Tumors Finding out you have a tumor is scary. You may wonder what effect it will have on your life. As you and your doctors decide on your treatment, some of your concerns will be resolved. And moving forward, your healthcare team can help you learn ways to help yourself. What is a tumor? A tumor is a mass of abnormal cells. It is either benign (slow growing, not cancerous) or malignant (fast growing, cancerous). Some tumors, especially cancerous ones, can be life-threatening. But most tumors can be treated. Risk factors for a cancerous tumor You are more likely to get a tumor of the mouth or throat if you: Smoke cigarettes, pipes, or cigars Use chewing tobacco or snuff Drink alcohol Take poor care of your teeth Are exposed to certain industrial chemicals Had a mouth or throat tumor in the past Have a human papillomavirus (HPV) infection Signs and symptoms of a tumor in the mouth If you have a mouth tumor, you or your doctor may have noticed one or more of the following: White or red patches on tissues or gums Pain that doesnt go away A sore that doesnt heal in a week or two Bleeding that doesnt stop after a few days A swelling or lump that doesnt go away Problems with your teeth, dentures, or chewing Signs and symptoms of a tumor in the throat If you have a throat tumor, you or your doctor may have noticed one or more of the following: Hoarseness that doesnt go away Trouble swallowing A lump in your neck Pain that doesnt go away Aching, pain, or pressure in your ear Persistent coughing with or without bloody sputum Date Last Reviewed: 02/12/201619990679-2932 [employer]. [address] [place] [address]. All rights reserved. This information is not intended as a substitute for professional medical care. Always follow your healthcare professional's instructions. documented in this encounter Progress Notes Selvin Gallardo MD - 11/23/2018 8:30 AM CDT Cc: Chief Complaint Patient presents with Follow-up 6 month follow up-HTN Mouth/Lip Problem Spot in side of his mouth , swollen and hurts HPI Kleber Cornejo is a 48 year old male who presents today for HTN follow up. He is also complaining of a mass on the inside of his left cheek. He calls it a "gum ball". It has been there for some timebut it is enlarging lately and is more painful. He says during the day it gets better but when he gets up in the morning it has his left cheek and gum extremely swollen and painful. He has been abstinent from tobacco products for 5 years. HTN follow-up: Medication compliance: Good. Denies adverse medication side effects. Dietary compliance: Poor. Exercise frequency: None except some walking at work. Blood pressure readings: Doesn't self-monitor. Associated symptoms: None. Denies cp or SOB. Cardiovascular screening (ex. EKG, stress test) in the past 3 years?: Yes. Allergies Kleber has No Known Allergies. Medications Outpatient Medications Prior to Visit Medication Sig Dispense Refill losartan 100 mg tablet Take 1 tablet by mouth daily. 90 tablet 3 aspirin (ADULT LOW DOSE ASPIRIN) 81 mg EC tablet Take 81 mg by mouth daily. vitamin B-12 (VITAMIN B-12) 1,000 mcg tablet Take 1 tablet by mouth daily. No facility-administered medications prior to visit. Histories Past Medical History: Diagnosis Date Abnormal EKG B12 deficiency 07/06/2017 Hypertension Diagnosed around 2016 Obesity Seasonal allergies Past Surgical History: Procedure Laterality Date HERNIA REPAIR TONSILLECTOMY Social History Socioeconomic History Marital status: Single Spouse name: Not on file Number of children: Not on file Years of education: Not on file Highest education level: Not on file Occupational History Not on file Social Needs Financial resource strain: Not on file Food insecurity: Worry: Not on file Inability: Not on file Transportation needs: Medical: Not on file Non-medical: Not on file Tobacco Use Smoking status: Never Smoker Smokeless tobacco: Former User Substance and Sexual Activity Alcohol use: Yes Alcohol/week: 12.6 oz Types: 21 Cans of beer per week Drug use: Yes Types: Barbiturates Sexual activity: Not on file Lifestyle Physical activity: Days per week: Not on file Minutes per session: Not on file Stress: Not on file Relationships Social connections: Talks on phone: Not on file Gets together: Not on file Attends amish service: Not on file Active member of club or organization: Not on file Attends meetings of clubs or organizations: Not on file Relationship status: Not on file Intimate partner violence: Fear of current or ex partner: Not on file Emotionally abused: Not on file Physically abused: Not on file Forced sexual activity: Not on file Other Topics Concern Not on file Social History Narrative 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 Family History Problem Relation Age of Onset COPD (chronic obstructive pulmonary disease) Mother Thyroid Sister Review of Systems Constitutional: Negative. HENT: Positive for facial swelling. Eyes: Negative. Respiratory: Negative. Cardiovascular: Negative. Gastrointestinal: Negative. Genitourinary: Negative. Musculoskeletal: Negative. Skin: Negative. Neurological: Negative. Psychiatric/Behavioral: Negative. Endocrine: Endocrine negative Vital Signs BP 127/86 | Pulse 61 | Temp 36.9 C (98.4 F) (Oral) | Ht 6' 4" (1.93 m) | Wt 377 lb (171 kg)| BMI 45.89 kg/m Physical Exam Constitutional: He is oriented to person, place, and time. He appears well- developed and well-nourished. No distress. HENT: Head: Normocephalic and atraumatic. Right Ear: Tympanic membrane and ear canal normal. Left Ear: Tympanic membrane and ear canal normal. Nose: Nose normal. Right sinus exhibits no maxillary sinus tenderness and no frontal sinus tenderness. Left sinus exhibits no maxillary sinus tenderness and no frontal sinus tenderness. Mouth/Throat: Oropharynx is clear and moist and mucous membranes are normal. Oral lesions (fleshy mass-like area in the mid left buccal tissue w/ some associated tenderness and erythema) present. Abnormal dentition (multiple carious teeth). Eyes: Pupils are equal, round, and reactive to light. Conjunctivae are normal. No scleral icterus. Neck: Neck supple. No thyromegaly present. Cardiovascular: Normal rate, regular rhythm, normal heart sounds and intact distal pulses. Exam reveals no gallop and no friction rub. No murmur heard. Pulmonary/Chest: Effort normal and breath sounds normal. He has no wheezes. He has no rales. Musculoskeletal: He exhibits no edema. Lymphadenopathy: He has no cervical adenopathy. Neurological: He is alert and oriented to person, place, and time. Skin: Skin is warm and dry. No rash noted. No pallor. Psychiatric: He has a normal mood and affect. His behavior is normal. Nursing note and vitals reviewed. Assessment/Plan Diagnoses and all orders for this visit: Essential hypertension, Medication monitoring encounter Bp is very close to goal of <130/<80. Continue current medication(s). Low sodium diet/DASH diet. Exercise regularly. The patient was instructed to self monitor his blood pressure once daily varying the times when it is checked and to bring the record of readings to each office visit. The patient should follow-up sooner if the blood pressure is trending >/=130/80. - BASIC METABOLIC PANEL (NA, K, CL, CO2, GLUCOSE, BUN, CREATININE, CA) Nutritional counseling, Exercise counseling Nutritional/Exercise Counseling and Education: - Counseled on diet, exercise, weight control and goals - Follow-Up plan: -Follow up visit with BMI in 6 Months Cellulitis of left internal cheek, Cheek mass, Poor dentition, ersonal history of tobacco use Antibiotic treatment is warranted given his exam findings. The patient was told to be sure to complete the full antibiotic course. Recommended evaluation and management by an ENT specialist given hish/o chewing tobacco use. Referral initiated. I also encouraged him to have check-ups at least every 6 mos for routine dental care/cleanings. - amoxicillin 875 mg tablet; Take 1 tablet by mouth 2 (two) times daily for 10 days. - CONSULT/REFERRAL ENT Plan of care, desired health behaviors, goals, Ddx, and any prescribed medications were discussed with the patient. This visit did not involve counseling and coordination that comprised more than 50% of the visit time. Education resources and self-management tools were provided and reviewed with the AVS. Patient/guardian/family verbalized understanding and agrees to the plan of care. Barriers tocare: None. Ability to manage care: Good. Advanced care planning (living will) information was not given/offered to the patient to review for discussion at a future visit. If applicable, the [facility] database was accessed to review any controlled substance prescription claims data. If the patient is taking prescribed medications, the [facility] [facility] prescription claims data in [facility] was reviewed to assess patient compliance with the medication treatment plan. Follow-up: Return in about 6 months (around 05/26/2019) for annual physical (fasting). Follow-up sooner if any problems or concerns. Scribe Attestation Kaye Farrell , am scribing for, and in the presence of, Selvin Gallardo MD who performed the services described here-in. Kaye Dyson, November 23, 2018, 9:40 AM Physician Attestation ISelvin MD, personally performed the services described in this documentation , as scribed by, Kaye Dyson in my presence and it is both accurate and complete. Selvin Gallardo MD November 23, 2018, 9:40 AM Kasie ShainaMary - 11/23/2018 8:30 AM CDTVenipuncture Collection performed by clean technique. Total of 1 attempts were made. Slight pressureand a bandage/dressing were applied to the site(s). The patient experienced no complications. Specimens were sent processed to [facility] laboratories. documented in this encounter Plan of Treatment Date Type Specialty Care Team Description 05/16/2019 Office Visit Family Medicine Alma Delia Gallardo MD [address] [phone] Name Type Priority Associated Diagnoses Date/Ti me BASIC METABOLIC PANEL LAB Routine Essential hypertens ion 11/23/2018 9:12 AM CDT (NA, K, CL, CO2, GLUCOSE, BUN, CREATININE, CA) Name Type Priority Associated Diagnoses Order S chedule BASIC METABOLIC PANEL LAB Routine Essential hypertens ion 1 Occurrences starting (NA, K, CL, CO2, 11/23/2018 until GLUCOSE, BUN, 01/22/2019, 1 completed CREATININE, CA) Health Maintenance Due Date Last Done Comments DTaP,Tdap,and Td Vaccines ( - 1989 Tdap) INFLUENZA VACCINE 05/24/2019 Postponed from 12/12/2018 (Patient Refused ) PNEUMOCOCCAL 0-64 YEARS COMBINED Aged Out No longer eligible based on SERIES patient's age to complete this topic documented as of this encounter Results Not on filedocumented in this encounter Visit Diagnoses Diagnosis Essential hypertension - Primary Unspecified essential hypertension Medication monitoring encounter Encounter for therapeutic drug monitorin g Cellulitis of left internal cheek Cellulitis and abscess of oral soft tiss ues Cheek mass Swelling, mass, or lump in head and neck Personal history of tobacco use Personal history of tobacco use, present ing hazards to health Nutritional counseling Exercise counseling documented in this encounter Insurance Payer Benefit Plan / Subscriber ID Effective Dates Phone Addre ss Type Group [facility] [id number] 2017-Presen PPO/POS PPO/POS t documented as of this encounter
--- OUTSIDE RECORDS SUMMARY | 2019-08-16 04:37 | XMS REPORT | Summary of Care ---
:1970 Author Organization [facility] Address [address] [place] [address] Care Team Providers Name Role Phone Selvin Gallardo MD Primary Care Provider Reason for Referral (Routine) Status Reason Specialty Diagnoses / Referred By Referred To Procedures Contact Contact New Request Urology Diagnoses Increased prostate specific antigen (PSA) velocity Selvin Gallardo Procedures CONSULT/REFERRAL UROLOGY MD Giacomo [address] [place] [phone] Reason for Visit Reason Comments Referral/consult Orders Encounter Details Date Type Department Care Team Description 05/18/[address] [facility] Family Selvin Gallardo Referral/consult; Medicine - Rosa Gooden MD Orders [address] [place] [phone] Allergies No Known Allergiesdocumented as of this encounter (statuses as of 05/18/2019) Medications Medication Sig Dispensed Refills Start Date End Date Status vitamin B-12 (VITAMIN Take 1 tablet by 0 07/06/2017 Active B-12) 1,000 mcg tablet mouth daily. aspirin (ADULT LOW DOSE Take 81 mg by 0 Active ASPIRIN) 81 mg EC mouth daily. tablet losartan 100 mg Take 1 tablet by 90 tablet 3 05/16/2019 Active tabletIndications: mouth daily. Essential hypertension documented as of this encounter (statuses as of 05/18/2019) Active Problems Problem Noted Date Increased prostate specific antigen (PSA) velocity 08/2019 Macrocytosis 05/18/2019 B12 deficiency 07/06/2017 Leukopenia 06/04/2017 Abnormal liver function test 06/04/2017 Obesity Seasonal allergies Hypertension Overview: Diagnosed around 2015 Abnormal EKG documented as of this encounter (statuses as of 05/18/2019) Social History Tobacco Use Types Packs/Day Years Used Date Never Smoker Smokeless Tobacco: Former User Alcohol Use Drinks/Week oz/Week Comments Yes 21 Cans of beer 21.0 Sex Assigned at Date Recorded Not on file Job Start Date Occupation Industry Not on file Not on file Not on file Travel History Travel Start Travel End No recent travel history available. documented as of this encounter Last Filed Vital Signs Not on filedocumented in this encounter Plan of Treatment Date Type Specialty Care Team Description 11/14/2019 Office Visit Family Medicine Alma Delia Gallardo MD [address] [place] [phone] Name Type Priority Associated Diagnoses Order S chedule FOLATE LAB Add-on Macrocytosis 1 Occurrences s tarting 05/18/2019 unti l 07/17/2019 VITAMIN B12, LEVEL LAB Add-on Macrocytosis 1 Occurre nces starting 05/18/2019 unti l 07/17/2019 Health Maintenance Due Date Last Done Comments DTaP,Tdap,and Td Vaccines (1 - 05/16/2020 P ostponed from 1981 Tdap) (Refused) INFLUENZA VACCINE (#1) 2020 Postponed from 12/12/2018 (Refused) PNEUMOCOCCAL 0-64 YEARS COMBINED Aged Out No longer eligible based on SERIES patient's age to complete this topic documented as of this encounter Results Not on filedocumented in this encounter Visit Diagnoses Diagnosis Macrocytosis - Primary Other specified diseases of blood and bl ood-forming organs Increased prostate specific antigen (PSA ) velocity Elevated prostate specific antigen (PSA) documented in this encounter Insurance Payer Benefit Plan / Subscriber ID Effective Dates Phone Addre ss Type Group [facility] [id number] 2017-Presen PPO/POS PPO/POS t documented as of this encounter
--- OUTSIDE RECORDS SUMMARY | 2019-08-16 04:37 | XMS REPORT | Summary of Care ---
:1970 Author Organization [facility] Address [address] [place] [address] Care Team Providers Name Role Phone Selvin Gallardo MD Primary Care Provider Reason for Referral (Routine) Status Reason Specialty Diagnoses / Referred By Referred To Procedures Contact Contact Authorized Location Otolaryngology Diagnoses Cellulitis of left internal cheek Cheek mass Personal history of tobacco use Alex Gallardo Preference Procedures CONSULT/REFERRAL ENT MD Ferdinand Cabral [place] [phone] [place], [place] Phone: [phone] Phone: Reason for Visit Reason Comments Follow-up 6 month follow up Mouth/Lip Problem Spot in side of his mouth , swollen and hurts LAB WORK Encounter Details Date Type Department Care Team Description 11/23/2018 Office Visit [facility] Family Selvin Gallardo ntial hypertension (Primary Dx); Medicine - Rosa Gooden MD Medication monitoring [facility] [address] [place] [address] Cellulitis of left internal cheek; [place], [place] Cheek mass; [phone] Personal history of tobacco use; [phone] Nutritional counseling; Exercise counseling Allergies No Known [...] or without bloody sputum Date Last Reviewed: 02/12/201619999408-4862 [employer]. [address] [place] [address]. All rights reserved. This information is not [...] or without bloody sputum Date Last Reviewed: 02/12/201619998467-8990 [employer]. [address] [place] [address]. All rights reserved. 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 Family History Problem Relation Age [...] at a future visit. If applicable, the [facility] database was accessed to review any controlled substance prescription claims data. If the patient is taking prescribed medications, the [employer] prescription claims data in [employer] was reviewed to assess patient compliance with [...] in this documentation , as scribed by, aKye Dyson in my presence and it is both accurate and complete. Selvin Gallardo MD November 23, 2018, 9:40 AM Kasie ShainaMary - 11/23/2018 8:30 AM CDTVenipuncture Collection performed by clean technique. Total of 1 attempts were made. Slight pressureand a bandage/dressing were applied to the site(s). The patient experienced no complications. Specimens were sent processed to [facility] laboratories. documented in this encounter Plan of Treatment Date Type Specialty Care Team Description 05/16/2019 Office Visit Family Medicine Alma Delia Gallardo MD [address] [phone] Name Type Priority Associated Diagnoses Date/Ti [...] Effective Dates Phone Addre ss Type Group [facility] [id number] 2017-Presen PPO/POS PPO/POS t documented as of this encounter
--- OUTSIDE RECORDS SUMMARY | 2019-08-16 04:37 | XMS REPORT | Summary of Care ---
:1970 Author Organization [facility] - Health Address [address] [place] [address] Care Team Providers Name Role Phone Selvin Gallardo MD Primary Care Provider Encounter Details Date Type Department Care Team Description 05/16/2019 Orders Only [facility] Doctor Unassigned, No [address] [facility] [place] [address] [address] [place] [address] Allergies No Known Allergiesdocumented as of this encounter (statuses as of 05/16/2019) Medications Medication Sig Dispensed Refills Start Date End Date Status vitamin B-12 (VITAMIN Take 1 tablet by 0 07/06/2017 Active B-12) 1,000 mcg tablet mouth daily. aspirin (ADULT LOW DOSE Take 81 mg by 0 Active ASPIRIN) 81 mg EC mouth daily. tablet losartan 100 mg Take 1 tablet by 90 tablet 3 05/24/2018 Active tabletIndications: mouth daily. Essential hypertension documented as of this encounter (statuses as of 05/16/2019) Active Problems Problem Noted Date B12 deficiency 07/06/2017 Leukopenia 06/04/2017 Abnormal liver function test 06/04/2017 Obesity Seasonal allergies Hypertension Overview: Diagnosed around 2015 Abnormal EKG documented as of this encounter (statuses as of 05/16/2019) Social History Tobacco Use Types Packs/Day Years [...] Visit Family Medicine Alma Delia Gallardo MD [address] [place] [address] [phone] Health Maintenance Due Date Last Done Comments DTaP,Tdap,and Td Vaccines (1 - 1981 Tdap) INFLUENZA VACCINE (#1) 2018 PNEUMOCOCCAL 0-64 YEARS COMBINED Aged Out No longer eligible based on SERIES patient's age to complete this topic documented as of this encounter Procedures Procedure Name Priority Date/Time Associated Diagnosis Comme nts NO SHOW OR MISSED Routine 05/16/2019 8:47 AM APPOINTMENT POLICY 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
--- OUTSIDE RECORDS SUMMARY | 2019-08-16 04:37 | XMS REPORT | Summary of Care ---
:1970 Author Organization [facility] Address [address] [place] [address] Care Team Providers Name Role Phone Selvin Gallardo MD Primary Care Provider Reason for Referral (Routine) Status Reason Specialty Diagnoses / Referred By Referred To Procedures Contact Contact Authorized Location Otolaryngology Diagnoses Cellulitis of left internal cheek Cheek mass Personal history of tobacco use Alex Gallardo Preference Procedures CONSULT/REFERRAL ENT MD Ferdinand Cabral [place] [id number] [place], [place] Phone: [phone] Phone: Reason for Visit Reason Comments Follow-up 6 month follow up Mouth/Lip Problem Spot in side of his mouth , swollen and hurts LAB WORK Encounter Details Date Type Department Care Team Description 11/23/2018 Office Visit [facility] Family Selvin Gallardo ntial hypertension (Primary Dx); Medicine - Rosa Gooden MD Medication monitoring encounter; [facility] [address] [place] [address] Cellulitis of left internal cheek; [place], [place] Cheek mass; [phone] Personal history of tobacco use; [phone] Nutritional counseling; Exercise counseling Allergies No Known Allergiesdocumented as of this encounter (statuses as of 11/24/2018) Medications Medication Sig Dispensed Refills Start Date [...] as of this encounter (statuses as of 11/24/2018) Active Problems Problem Noted Date B12 deficiency 07/06/2017 Leukopenia 06/04/2017 Abnormal liver function test 06/04/2017 Obesity Seasonal allergies Hypertension Overview: Diagnosed around 2015 Abnormal EKG documented as of this encounter (statuses as of 11/24/2018) Social History Tobacco Use Types Packs/Day Years [...] or without bloody sputum Date Last Reviewed: 02/12/201619995823-4420 [employer]. [address] [place] [address]. All rights reserved. This information is not [...] or without bloody sputum Date Last Reviewed: 02/12/201619996117-0499 [employer]. [address] [place] [address]. All rights reserved. 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 Family History Problem Relation Age of [...] [facility] database was accessed to review any controlled substance prescription claims data. If the patient is taking prescribed medications, the [employer] prescription claims data in [employer] was reviewed to assess patient compliance with [...] no complications. Specimens were sent processed to [facility] laboratories. documented in this encounter Plan of Treatment Date Type Specialty Care Team Description 05/16/2019 Office Visit Family Medicine Alma Delia Gallardo MD [address] [place] [phone] Health Maintenance Due Date Last Done Comments DTaP,Tdap,and Td Vaccines ( - 1989 Tdap) INFLUENZA VACCINE 05/24/2019 Postponed from 12/12/2018 (Patient Refused ) PNEUMOCOCCAL 0-64 YEARS COMBINED Aged Out No longer eligible based on SERIES patient's age to complete this topic documented as of this encounter Procedures Procedure Name Priority Date/Time Associated Diagnosis Comme nts BASIC METABOLIC Routine 11/23/2018 9:12 Essential Results for this PANEL (NA, K, CL, AM CDT hypertension procedure are in CO2, GLUCOSE, BUN, the resul ts CREATININE, CA) section. documented in this encounter Results BASIC METABOLIC PANEL (NA, K, CL, CO2, GLUCOSE, BUN, CREATININE, CA) (11/23/2018 9:12 AM CDT) Pathologist Sig nature NA 142 135 - 145 mmol/L [facility] K 4.5 3.5 - 5.0 mmol/L [facility] CL 104 98 - 108 mmol/L [facility] CO2 TOTAL 29 23 - 31 mmol/L [facility] AGAP 9 2 - 16 [facility] BUN 17 7 - 23 mg/dL [facility] GLUCOSE 96 70 - 110 mg/dL [facility] CREATININE 0.77 0.60 - 1.25 [facility] mg/dL H[facility] CALCIUM 9.3 8.6 - 10.6 mg/dL [facility] eGFR Calculation 107.8 mL/min/1.73m2 [facility] (Non-) [facility] eGFR Calculation 130.7 mL/min/1.73m2 [facility] () [facility] Specimen Blood - ARM, LEFT Narrative Performed At Association of Glomerular Filtration Rate (GFR) [facility] and Staging of Kidney Disease* + + +- + | GFR (mL/min/1.73 m2)| With Kidney Damage|Without Kidney Damage + + +- + |>90| Stage one| Normal + + +- + |60-89|S tage two| Decreased GFR + + +- + |30-59|S tage three| Stage three + + +- + |15-29|S tage four | Stage four + + +- + |<15 (or dialysis)|Stage five | Stage five + + +- + *Each stage assumes the associated GFR level has been in effect for at least three months.Stages 1 to 5, with or without kidney disease, indicate chronic kidney disease . Notes: Determination of stages one and two (with eGFR >59mL/min/1.73 m2) requires estimation of kidney damage for at least three months as defined by structural or functional abnormalities of the kidney, manifested by either: Pathological abnormalities or Markers of kidney damage (including abnormalities in the composition of the blood or urine or abnormalities in imaging tests). Performing Organization Address City/State/Zipcode Phone Number [facility] CLIA: [id number], [address] [place] [address] documented in this encounter Visit Diagnoses Diagnosis Essential [...] Effective Dates Phone Addre ss Type Group [facility] [id number] 2017-Bianca PPO/POS PPO/POS t documented as of this encounter
--- OUTSIDE RECORDS SUMMARY | 2019-08-16 04:39 | XMS REPORT | Summary of Care ---
:1970 Author Organization [facility] Address [address] [place] [address] Care Team Providers Name Role Phone Selvin Gallardo MD Primary Care Provider Reason for Visit Reason Comments ANNUAL EXAM LAB WORK Encounter Details Date Type Department Care Team Description 05/16/2019 Office Visit [facility] Family Selvin Gallardo physical exam (Primary Dx); Medicine - Rosa Gooden MD Essential hypertension; [address] [place] [address] [address] [place] [address] [place] [phone] Allergies No Known Allergiesdocumented as of this encounter (statuses as of 05/22/2019) Medications Medication Sig Dispensed Refills Start Date End Date Status vitamin B-12 Take 1 0 07/06/2017 Active (VITAMIN B-12) tablet by 1,000 mcg tablet mouth daily. aspirin (ADULT LOW Take 81 mg 0 Active DOSE ASPIRIN) 81 by mouth mg EC tablet daily. losartan 100 mg Take 1 90 tablet 3 05/16/2019 Act alona tabletIndications: tablet by Essential mouth daily. hypertension losartan 100 mg Take 1 90 tablet 3 05/24/2018 Dis continued tabletIndications: tablet by 0 ( Reorder) Essential mouth daily. hypertension documented as of this encounter (statuses as of 05/22/2019) Active Problems Problem Noted Date Increased prostate specific antigen (PSA) velocity 08/2019 Macrocytosis 05/18/2019 B12 deficiency 07/06/2017 Leukopenia 06/04/2017 Abnormal liver function test 06/04/2017 Obesity Seasonal allergies Hypertension Overview: Diagnosed around 2015 Abnormal EKG documented as of this encounter (statuses as of 05/22/2019) Social History Tobacco Use Types Packs/Day Years [...] Sign Reading Time Taken Comments Blood Pressure 124/82 05/16/2019 8:52 AM GLOST [employer]ACER Pulse 55 05/16/2019 8:52 AM [employer] Temperature 36.3 C (97.4 F) 05/16/2019 8:52 AM [employer]ACER Respiratory Rate - - Oxygen Saturation - - Inhaled Oxygen Concentration - - Weight 170.6 kg (376 lb) 05/16/2019 8:52 AM [employer] Height 193 cm (6' 4") 05/16/2019 8:52 AM [employer]ACER Body Mass Index 45.77 05/16/2019 8:52 AM G[employer] KILN [employer]ACER documented in this encounter Patient Instructions Patient InstructionsSelvin Gallardo MD - 05/16/2019 9:30 AM [employer]ER Losing Weight for Heart Health Excess weight is a major risk factor for heart disease. Losing weight has many benefits including lowering your blood pressure, improving your cholesterol level, and decreasing your risk for diseases such as diabetes and heart disease. It may help keep your arteries open so that your heart can get theoxygen-rich blood it needs. All in all, losing weight makes you healthier and is one of the best ways to improve your heart's health. Calories and weight loss Calories are the fuel your body weber for energy. You get the calories you need from the food youeat. For healthy weight loss, women should eat at least 1,200 calories a day, men at least 1,500. When you eat more calories than you need, your body stores the extra calories as fat. One pound of fat equals 3,500 calories. To lose weight, try to reduce your total calorie intake by 500 calories. To do this, eat 250 calories less each day. Add activity to burn the other 250 calories. Walking2.5miles weber about 250 calories. Other more intense activities can burn more calories in the time you spend doing them, suchas swimming and running. It's important to understand that reducing calorie intake is much more effective at weight loss than is exercise. Eat a variety of healthy foods to get the nutrients you need while you are cutting your calories to reduce your weight. Tips for losing weight Drink 8 to 10 glasses of water a day. Dont skip meals. Instead, eat smaller portions. Eat your meals earlier in the day. Cut out sugary drinks such as soda and fruit juices. Make your later meals administrative services officer than your earlier meals. Brisk activity is best Brisk activity gets your heart pumping faster and it makes it healthier. Its also a great way to burn calories. In fact, your body may keep burning calories for hours after you stop a brisk activity: Start by walking 10 minutes most days. Add more time and speed to your walk. Build up as you feel able. Aim for at least 150 minutes of moderate-intensity aerobic activity such as brisk walking or 75 minutes of vigorous aerobic activity such as swimming laps each week to get the most health benefits. Get up a move and sit less. Sitting too much is linked with increased risk of heart disease. Moving more and sitting less can help cut this risk. The most important part of the activity is that you break a sweat. This means your heart is working hard enough to burn fat. [employer] last reviewed this educational content on 10/11/201819993446-3994 [employer]. [address] [place] [address]. All rights reserved. This information is not intended as a substitute for professional medical care. Always follow your healthcare professional's instructions. T KILN PLACER documented in this encounter Progress Notes Mary Olson - 05/16/2019 9:30 AM CST Venipuncture collection performed by clean technique on the left anticubitus. Total of 1 attempts were made. Slight pressure and a bandage/dressing were applied to the site(s). The patient experienced no complications. The following specimens were processed according to instructions and sent to [facility] laboratories per lab order on 05/16/19: LT BLUE SST RED LAV PPT DK GREEN (LiHep) DK GREEN (SodH) GARCÍA DK BLUE (K2) DK BLUE (S) ACD Blood Culture NIPT/NTD Selvin Klein MD - 05/16/2019 9:30 AM CST Cc: Chief Complaint Patient presents with ANNUAL EXAM LAB WORK HPI Kleber Cornejo is a 49 year old male who presents today for an annual exam. He needs refills of losartan for HTN. Annual wellness visit: Describes diet: Poor. Exercise frequency: Not active . STD screening consent?: Accepts. Last PSA: 01/18/2018. Are there obstructive symptoms present that warrant prostate examination?: No. Does self testicular exams?: Yes. Opts for clinical testicular exam?: No. Last colonoscopy: Never. Candidate for Hep C screening based on year?: No. Candidate for shingles vaccine?: Not yet. Candidate for pneumococcal vaccine?: No. Candidate for influenza vaccine?: Yes, but the patient declines the vaccine. Candidate for Tdap?: Yes, but the patient declines the vaccine. Domestic/relationship violence screen is negative. Last cardiac screening?: 05/19/2017. Depression screen (PHQ-2): Negative. Accepts referral for skin cancer screening exam with a Class A Truck Driver?: No, declines. Allergies Kleber has No Known Allergies. Medications Outpatient Medications Prior to Visit Medication Sig Dispense Refill aspirin (ADULT LOW DOSE ASPIRIN) 81 mg EC tablet Take 81 mg by mouth daily. vitamin B-12 (VITAMIN B-12) 1,000 mcg tablet Take 1 tablet by mouth daily. losartan 100 mg tablet Take 1 tablet by mouth daily. 90 tablet 3 No facility-administered medications prior to visit. 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 Family History Problem Relation Age of Onset COPD (chronic obstructive pulmonary disease) Mother Thyroid Sister Review of Systems Constitutional: Negative. HENT: Negative. Eyes: Negative. Respiratory: Negative. Cardiovascular: Negative. Gastrointestinal: Negative. Genitourinary: Negative. Musculoskeletal: Negative. Skin: Negative. Neurological: Negative. Psychiatric/Behavioral: Negative. Endocrine: Endocrine negative Vital Signs BP 124/82 | Pulse 55 | Temp 36.3 C (97.4 F) (Tympanic) | Ht 6' 4" (1.93 m) | Wt 376 lb (170.6 kg) | BMI 45.77 kg/m Physical Exam Constitutional: He is oriented to person, place, and time. He appears well- developed and well-nourished. No distress. HENT: Head: Normocephalic and atraumatic. Right Ear: Tympanic membrane and ear canal normal. Left Ear: Tympanic membrane and ear canal normal. Nose: Nose normal. Mouth/Throat: Oropharynx is clear and moist and mucous membranes are normal. Dental caries present. No posterior oropharyngeal erythema. Eyes: Pupils are equal, round, and reactive to light. Conjunctivae are normal. No scleral icterus. Neck: Neck supple. No JVD present. No thyromegaly present. Cardiovascular: Normal rate, regular rhythm, normal heart sounds and intact distal pulses. Exam reveals no gallop and no friction rub. No murmur heard. Pulmonary/Chest: Effort normal and breath sounds normal. No respiratory distress. He has no wheezes.He has no rhonchi. He has no rales. Abdominal: Soft. Bowel sounds are normal. He exhibits no distension and no mass. There is no tenderness. Musculoskeletal: He exhibits edema (Trace BLE). Lymphadenopathy: He has no cervical adenopathy. Neurological: He is alert and oriented to person, place, and time. He has normal reflexes. Skin: Skin is warm and dry. No rash noted. No pallor. Psychiatric: He has a normal mood and affect. His behavior is normal. Nursing note and vitals reviewed. Assessment/Plan Kleber was seen today for an annual exam. Diagnoses and all orders for this visit: Annual physical exam, STI screening, Prostate cancer screening Discussed cancer screening guidelines and other health maintenance recommendations for his age and gender. Healthy diet, importance of regular exercise, preventive dental care, and regular eye exams were encouraged. General safety, self testicular exam, and STD screening were all discussed. This patient opted for prostate cancer screening with PSA test after the risks, benefits, and alternatives to screening were discussed. Labs and any other orders as noted below. - CBC WITH DIFF; Standing - COMP. METABOLIC PANEL (80813); Standing - GLYCOSYLATED HEMOGLOBIN (A1C); Standing - LIPID PANEL (80006)(TOTAL CHOLESTEROL, TRIGLYCERIDES, HDL); Standing - THYROID STIMULATING HORMONE; Standing - URINALYSIS; Standing - PROSTATIC SPECIFIC ANTIGEN SCREEN; Standing - ADC OR ARAMIS ONLY - RPR; Standing - GC & CHLAMYDIA AMPLIFIED ASSAY; Standing - HEPATITIS B SURFACE ANTIGEN; Standing - HIV 1/2 AG-AB WITH REFLEX; Standing - HCV ANTIBODY; Standing - TRICHOMONAS AMPLIFIED ASSAY; Standing Essential hypertension Bp is close to goal. Continue current medication(s). Low sodium diet/DASH diet. Exercise regularly. The patient was instructed to self monitor his blood pressure once daily varying the times when it is checked and to bring the record of readings to each office visit. The patient should follow-up sooner if the blood pressure is trending >/=130/80. - losartan 100 mg tablet; Take 1 tablet by mouth daily. Plan of care, desired health behaviors, goals, [...] at a future visit. If applicable, the [facility] database was accessed to review any controlled substance prescription claims data. If the patient is taking prescribed medications, the [employer] prescription claims data in [employer] was reviewed to assess patient compliance with the medication treatment plan. Follow-up: Return in about 6 months (around 11/14/2019) for HTN and B12 f/u. Follow-up sooner if anyproblems or concerns. Scribe Attestation Kaye Farrell , sanket scribing for, and in the presence of, Selvin Gallardo MD who performed the services described here-in. Kaye Dyson, May 16, 2019, 8:57 AM Physician Attestation Jami, Selvin Gallardo MD, personally performed the services described in this documentation , as scribed by, Kaye Dyson in my presence and it is both accurate and complete. Selvin Gallardo MD May 16, 2019, 8:57 AM T KILN [employer]ACER documented in this encounter Plan of Treatment Date Type Specialty Care Team Description 11/14/2019 Office Visit Family Medicine Alma Delia Gallardo MD [address] [place] [address] [phone] Health Maintenance Due Date Last Done Comments DTaP,Tdap,and Td Vaccines (1 - 05/16/2020 P ostponed from 1981 Tdap) (Refused) INFLUENZA VACCINE (#1) 2020 Postponed from 12/12/2018 (Refused) PNEUMOCOCCAL 0-64 YEARS COMBINED Aged Out No longer eligible based on SERIES patient's age to complete this topic documented as of this encounter Procedures Procedure Name Priority Date/Time Associated Diagnosis Comme nts TRICHOMONAS AMPLIFIED Routine 05/16/2019 9:17 Annual physical exam Results for this ASSAY AM [employer]ER procedure are i n the results section. GC & CHLAMYDIA Routine 05/16/2019 9:17 Annual physical exam R esults for this AMPLIFIED ASSAY AM [employer]ER procedure ar e in the results section. URINALYSIS Routine 05/16/2019 9:17 Annual physical exam Res ults for this AM [employer]ER procedure are i n the results section. HIV 1/2 AG-AB WITH Routine 05/16/2019 9:12 Annual physical ex am Results for this REFLEX AM [employer]ACER procedure are i n the results section. CBC WITH DIFFERENTIAL Routine 05/16/2019 9:12 Annual physical exam Results for this AM [employer]ER procedure are i n the results section. ADC OR ARAMIS ONLY - Routine 05/16/2019 9:12 Annual physical exam Results for this RPR AM [employer]ACER procedure are i n the results section. HCV ANTIBODY Routine 05/16/2019 9:12 Annual physical exam Res ults for this AM [employer]ER procedure are i n the results section. HEPATITIS B SURFACE Routine 05/16/2019 9:12 Annual physical e xam Results for this ANTIGEN AM [employer]ACER procedure are i n the results section. GLYCOSYLATED Routine 05/16/2019 9:12 Annual physical exam Res ults for this HEMOGLOBIN (A1C) AM [employer]ACER procedure a re in the results section. CBC WITH DIFFERENTIAL Routine 05/16/2019 9:12 Annual physical exam Results for this AM [employer]ACER procedure are i n the results section. LIPID PANEL Routine 05/16/2019 9:12 Annual physical exam Res ults for this (60455)(TOTAL AM [employer]ACER procedure are in CHOLESTEROL, the results TRIGLYCERIDES, HDL) section. COMP. METABOLIC PANEL Routine 05/16/2019 9:12 Annual physical exam Results for this (13175) AM [employer]ER procedure are i n the results section. THYROID STIMULATING Routine 05/16/2019 9:12 Annual physical e xam Results for this HORMONE AM [employer]ACER procedure are i n the results section. FOLATE Add-on 05/16/2019 9:12 Macrocytosis Results for this AM [employer]ACER procedure are i n the results section. VITAMIN B12, LEVEL Add-on 05/16/2019 9:12 Macrocytosis Resul ts for this AM [employer]ACER procedure are i n the results section. PROSTATIC SPECIFIC Routine 05/16/2019 9:12 Annual physical ex am Results for this ANTIGEN SCREEN AM [employer]ER procedure are in the results section. documented in this encounter Results TRICHOMONAS AMPLIFIED ASSAY (05/16/2019 9:17 AM GLOST KILN [employer]ACER) Pathologist Sig nature Trichomonas Nucleic Negative Negative [facility] Acid SERVICES Specimen Urine - URINE, UNSPECIFIED SOURCE Performing Organization Address City/State/Zipcode Phone Number [facility] CLIA: [id number], [address] [place] [phone] [facility] GC & CHLAMYDIA AMPLIFIED ASSAY (05/16/2019 9:17 AM GLO[employer]IL[employer]ACER) Pathologist Sig [facility] C. trachomatis Nucleic Negative Negative [facility] Acid SERVICES N. gonorrhoeae Nucleic Negative Negative [facility] Acid SERVICES Specimen Urine - URINE, UNSPECIFIED SOURCE Performing Organization Address [facility] Phone Number [facility] CLIA: [id number], [address] [place] [phone] [facility] URINALYSIS (05/16/2019 9:17 AM GLO[employer]ACER) Pathologist Sig [facility] APPEARANCE Clear Clear [facility] COLOR Yellow Yellow [facility] PH 5.0 4.8 - 8.0 [facility] SP GRAVITY 1.014 1.003 - 1.030 [facility] GLU U QUAL Normal Normal [facility] BLOOD Negative Negative [facility] KETONES Negative Negative [facility] PROTEIN Negative Negative [facility] UROBILIN Normal Normal [facility] BILIRUBIN Negative Negative [facility] NITRITE Negative Negative [facility] LEUK KARTIK Negative Negative [facility] RBC/HPF 1 0 - 3 HPF [facility] WBC/HPF <1 0 - 5 HPF [facility] BACTERIA Negative Negative [facility] MUCOUS Slight (A) Negative LPF [facility] SQ EPITH <1 HPF [facility] Specimen Urine - URINE, CLEAN CATCH Performing Organization Address [facility] Phone Number [facility] CLIA: [id number], [address] [place], [place] [address] FOLATE (05/16/2019 9:12 AM GLOST KILN [employer]ACER) Pathologist Sig [facility] FOLATE SER 10.1 3.0 - 20.0 ng/mL [facility] SERVICES Specimen Blood - ARM, LEFT Performing Organization Address [facility] Phone Number [facility] CLIA: [id number], [address] [place] [phone] [facility] VITAMIN B12, LEVEL (05/16/2019 9:12 AM GLO[employer]IL[employer]ACER) Pathologist Sig nature VIT B12 853 240 - 930 pg/mL [facility] SERVICES Specimen Blood - ARM, LEFT Narrative Performed At Biotin has been reported to cause a positive bias, int erpret [facility] results relative to patient's use of biotin. Performing Organization Address City/State/Zipcode Phone Number [facility] CLIA: [id number], [address] [place], [place] [address] [facility] CBC WITH DIFFERENTIAL (05/16/2019 9:12 AM GLO[employer]IL[employer]ACER) Pathologist Sig nature WBC 5.42 4.20 - 10.70 [facility] 10*3/L HOSPITAL LABORATORY RBC 4.77 4.26 - 5.52 [facility] 10*6/L [facility] HGB 14.9 12.2 - 16.4 [facility] g/dL [facility] HCT 45.8 38.4 - 49.3 % [facility] MCV 96.0 (H) 81.7 - 95.6 fL [facility] MCH 31.2 26.1 - 32.7 pg [facility] MCHC 32.5 31.2 - 35.0 [facility] g/dL [facility] RDW-SD 44.6 38.5 - 51.6 fL [facility] RDW-CV 12.7 12.1 - 15.4 % [facility] PLT 215 150 - 328 [facility] 10*3/L [facility] MPV 9.4 (L) 9.8 - 13.0 fL [facility] NRBC/100 WBC 0.0 0.0 - 10.0 /100 [facility] WBCs [facility] NRBC x10^3 <0.01 10*3/L [facility] GRAN MAT (NEUT) % 69.2 % [facility] IMM GRAN % 0.40 % [facility] LYMPH % 18.8 % [facility] MONO % 8.9 % [facility] EOS % 2.0 % [facility] BASO % 0.7 % [facility] GRAN MAT x10^3(ANC) 3.75 1.99 - 6.95 [facility] 10*3/uL HOSPITAL LAB[facility]ORY IMM GRAN x10^3 <0.03 0.00 - 0.06 [facility] 10*3/uL [facility]ITAL [facility] LYMPH x10^3 1.02 (L) 1.09 - 3.23 [facility] 10*3/uL [facility] MONO x10^3 0.48 0.36 - 1.02 [facility] 10*3/uL [facility] EOS x10^3 0.11 0.06 - 0.53 [facility] 10*3/uL [facility] BASO x10^3 0.04 0.01 - 0.09 [facility] 10*3/uL HOSPITAL LABORATORY Specimen Blood - ARM, LEFT Performing Organization Address City/[facility]/Zipcode Phone Number [facility] CLIA: [id number], [address] [place] [address] HCV ANTIBODY (05/16/2019 9:12 AM GLO[employer] K[employer]ACER) Pathologist Sig nature HCV Ab Negative [facility] HCV Semi-Quantitative 0.04 [facility] SERVICES Specimen Blood - ARM, LEFT Performing Organization Address City/[facility] Phone Number [facility] CLIA: [id number], [address] [place] [address] [facility] HIV 1/2 AG-AB WITH REFLEX (05/16/2019 9:12 AM GLOST KILN PLACER) Pathologist Sig nature HIV 1/2 Ag-Ab with Negative Negative [facility] Reflex [facility]OSPITAL LAB[facility]ORY HIV Semi-quantitative 0.07 [facility] Specimen Blood - ARM, LEFT Narrative Performed At Non-reactive for HIV-1 antigen and HIV-1/HIV-2 [facility] antibodies. No laboratory evidence of HIV infection. Repeat in 2-4 weeks if acute HIV infection is suspected. Performing Organization Address City/[facility]/Zipcode Phone Number [facility] CLIA: [id number], [address] [place] [address] HEPATITIS B SURFACE ANTIGEN (05/16/2019 9:12 AM GLO[employer] KIL[employer] PLACER) Pathologist Sig nature HBsAg Negative Negative [facility] HBsAg 0.05 [facility] Semi-Quantitative SERVICES Specimen Blood - ARM, LEFT Performing Organization Address City/State/Zipcode Phone Number [facility] CLIA: [id number], [address] [place] [address] [facility] ADC OR ARAMIS ONLY - RPR (05/16/2019 9:12 AM GLO[employer]ACER) Pathologist [facility] RPR (Qualitative) Nonreactive Nonreactive [facility] Specimen Blood - ARM, LEFT Performing Organization Address [facility] Phone Number [facility] CLIA: [id number], [address] [place] [address] PROSTATIC SPECIFIC ANTIGEN SCREEN (05/16/2019 9:12 AM GLO[employer]ACER) Pathologist [facility] PSA 2.09 <=4.00 ng/mL [facility] Specimen Blood - ARM, LEFT Narrative Performed At Biotin has been reported to cause a negative [facility] bias, interpret results relative to patient's use of biotin. Performing Organization Address [facility] Phone Number [facility] CLIA: [id number], [address] [place] [address] THYROID STIMULATING HORMONE (05/16/2019 9:12 AM GLOST KILN [employer]ACER) [facility] TSH 0.75 0.45 - 4.70 mIU/L [facility] Specimen Blood - ARM, LEFT Performing Organization Address [facility] Phone Number [facility] CLIA: [id number], [address] [place] [address] LIPID PANEL (46553)(TOTAL CHOLESTEROL, TRIGLYCERIDES, HDL) (05/16/2019 9:12 AM GLO[employer]ACER) [facility] CHOL 170 120 - 200 mg/dL [facility] HDL 61 >40 mg/dL [facility] HDLC RATIO 2.8 <=5.0 [facility] TRIG 78 30 - 170 mg/dL [facility] [facility] LDL CHOL 93 <=160 mg/dL [facility] VLDL 16 5 - 60 mg/dL [facility] Specimen Blood - ARM, LEFT Performing Organization Address [facility] Phone Number [facility] CLIA: [id number], [address] [place] [address] GLYCOSYLATED HEMOGLOBIN (A1C) (05/16/2019 9:12 AM GLOST KILN PLACER) Pathologist Sig nature HGB A1C 5.1 4.0 - 6.0 % NGSP [facility] Specimen Blood - ARM, LEFT Narrative Performed At %A1C (NGSP) Interpretation (ADA) [facility] 4.8-5.6 Normal or (Non-Diabetic Ra nge) 5.7-6.4 Increased Risk (Pre-Diabet ic) >6.5 Diabetes Indicated Performing Organization Address City/State/Zipcode Phone Number [facility] CLIA: [id number], [address] [place], [place] [address] COMP. METABOLIC PANEL (26941) (05/16/2019 9:12 AM GLOST KILN PLACER) Pathologist Sig nature NA 139 135 - 145 mmol/L [facility] K 4.4 3.5 - 5.0 mmol/L [facility] CL 100 98 - 108 mmol/L [facility] CO2 TOTAL 29 23 - 31 mmol/L [facility] AGAP 10 2 - 16 [facility] BUN 19 7 - 23 mg/dL [facility] GLUCOSE 103 70 - 110 mg/dL [facility] CREATININE 0.80 0.60 - 1.25 [facility] mg/dL [facility] TOTAL BILI 0.6 0.1 - 1.1 mg/dL [facility] CALCIUM 9.9 8.6 - 10.6 mg/dL [facility] T PROTEIN 8.2 6.3 - 8.2 g/dL [facility] ALBUMIN 4.8 3.5 - 5.0 g/dL [facility] ALK PHOS 59 34 - 122 U/L [facility] ALTv 34 5 - 50 U/L [facility] AST(SGOT) 30 13 - 40 U/L [facility] eGFR Calculation 102.7 mL/min/1.73m2 [facility] (Non-) [facility] eGFR Calculation 124.5 mL/min/1.73m2 [facility] () [facility] Specimen Blood - ARM, LEFT Narrative Performed At Association of Glomerular Filtration Rate (GFR) [facility] and Staging of Kidney Disease* + + +- + | GFR (mL/min/1.73 m2) | With Kidney Damage | Without Kidney Damage + + +- + | >90 | Stage one | Normal + + +- + | 60-89 | Stage two | Decreased GFR + + +- + | 30-59 | Stage three | Stage three + + +- + | 15-29 | Stage four | Stage four + + +- + | <15 (or dialysis) | Stage five | Stage five + + +- + *Each stage assumes the associated GFR level has been in effect for at least three months. Stages 1 to 5, with or without kidney disease, indicate chronic kidney disease. Notes: Determination of stages one and two (with eGFR >59mL/min/1.73 m2) requires estimation of kidney damage for at least three months as defined by structural or functional abnormalities of the kidney, manifested by either: Pathological abnormalities or Markers of kidney damage (including abnormalities in the composition of the blood or urine or abnormalities in imaging tests). Performing Organization Address City/State/Zipcode Phone Number [facility] CLIA: [id number], [address] [place] [address] documented in this encounter Visit Diagnoses Diagnosis Annual physical exam - Primary Routine general medical examination at a health care facility Essential hypertension Unspecified essential hypertension Macrocytosis Other specified diseases of blood and bl ood-forming organs documented in this encounter Insurance Payer Benefit Plan / Subscriber ID Effective Dates Phone Addre ss Type Group [facility] [id number] 2017-Bianca PPO/POS PPO/POS t documented as of this encounter
--- OUTSIDE RECORDS SUMMARY | 2019-08-16 04:39 | XMS REPORT | Summary of Care ---
:1970 Author Organization [facility] - [facility] Address [address] [place] [address] Care Team Providers Name Role Phone Selvin Gallardo MD Primary Care Provider Reason for Visit Reason Comments ANNUAL EXAM LAB WORK Encounter Details Date Type Department Care Team Description 05/16/2019 Office Visit [facility] Family Selvin Gallardo physical exam (Primary Dx); Medicine - Rosa Gooden MD Essential hypertension; [address] [place] [address] [address] [place] [address] [place] [phone] Allergies No Known Allergiesdocumented as of this [...] Comments Blood Pressure 124/82 05/16/2019 8:52 AM PLY SPLICER Pulse 55 05/16/2019 8:52 AM PLY SPLICER Temperature 36.3 C (97.4 F) 05/16/2019 8:52 AM PLY SPLICER Respiratory Rate - - Oxygen Saturation - - Inhaled Oxygen Concentration - - Weight 170.6 kg (376 lb) 05/16/2019 8:52 AM PLY SPLICER Height 193 cm (6' 4") 05/16/2019 8:52 AM PLY SPLICER Body Mass Index 45.77 05/16/2019 8:52 AM PLY SPLICER documented in this encounter Patient Instructions Patient InstructionsSelvin Gallardo MD - 05/16/2019 9:30 AM PLY SPLICER Losing Weight for Heart Health Excess weight [...] and fruit juices. Make your later meals travel journalist than your earlier meals. Brisk activity is [...] is working hard enough to burn fat. Certess last reviewed this educational content on 10/11/201819994035-4898 [employer]. [address] [place] [address]. All rights reserved. This information is not intended as a substitute for professional medical care. Always follow your healthcare professional's instructions. SPLICER documented in this encounter Progress Notes Mary Olson - 05/16/2019 9:30 AM CST Venipuncture collection performed by clean technique on the left anticubitus. Total of 1 attempts were made. Slight pressure and a bandage/dressing were applied to the site(s). The patient experienced no complications. The following specimens were processed according to instructions and sent to [facility] laboratories per lab order on 05/16/19: LT [...] for skin cancer screening exam with a Preschool Teacher'S Assistant?: No, declines. 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 Family History Problem Relation Age of [...] WITH DIFF; Standing - COMP. METABOLIC PANEL (55629); Standing - GLYCOSYLATED HEMOGLOBIN (A1C); Standing - LIPID PANEL (09982)(TOTAL CHOLESTEROL, TRIGLYCERIDES, HDL); Standing - THYROID STIMULATING [...] at a future visit. If applicable, the [facility] database was accessed to review any controlled substance prescription claims data. If the patient is taking prescribed medications, the [employer] prescription claims data in [place] was reviewed to assess patient compliance with [...] Gallardo MD May 16, 2019, 8:57 AM SPLICER documented in this encounter Plan of Treatment Date Type Specialty Care Team Description 11/14/2019 Office Visit Family Medicine Alma Delia Gallardo MD [address] [place] [address] [phone] Health Maintenance Due Date Last Done [...] physical exam Results for this ASSAY AM PLY SPLICER procedure are i n the results section. GC & CHLAMYDIA Routine 05/16/2019 9:17 Annual physical exam R esults for this AMPLIFIED ASSAY AM PLY SPLICER procedure ar e in the results section. URINALYSIS Routine 05/16/2019 9:17 Annual physical exam Res ults for this AM PLY SPLICER procedure are i n the results section. HIV 1/2 AG-AB WITH Routine 05/16/2019 9:12 Annual physical ex am Results for this REFLEX AM PLY SPLICER procedure are i n the results section. CBC WITH DIFFERENTIAL Routine 05/16/2019 9:12 Annual physical exam Results for this AM PLY SPLICER procedure are i n the results section. ADC OR ARAMIS ONLY - Routine 05/16/2019 9:12 Annual physical exam Results for this RPR AM PLY SPLICER procedure are i n the results section. HCV ANTIBODY Routine 05/16/2019 9:12 Annual physical exam Res ults for this AM PLY SPLICER procedure are i n the results section. HEPATITIS B SURFACE Routine 05/16/2019 9:12 Annual physical e xam Results for this ANTIGEN AM PLY SPLICER procedure are i n the results section. GLYCOSYLATED Routine 05/16/2019 9:12 Annual physical exam Res ults for this HEMOGLOBIN (A1C) AM PLY SPLICER procedure a re in the results section. CBC WITH DIFFERENTIAL Routine 05/16/2019 9:12 Annual physical exam Results for this AM PLY SPLICER procedure are i n the results section. LIPID PANEL Routine 05/16/2019 9:12 Annual physical exam Res ults for this (53286)(TOTAL AM PLY SPLICER procedure are in CHOLESTEROL, the results TRIGLYCERIDES, HDL) section. COMP. METABOLIC PANEL Routine 05/16/2019 9:12 Annual physical exam Results for this (15997) AM PLY SPLICER procedure are i n the results section. THYROID STIMULATING Routine 05/16/2019 9:12 Annual physical e xam Results for this HORMONE AM PLY SPLICER procedure are i n the results section. FOLATE Add-on 05/16/2019 9:12 Macrocytosis Results for this AM PLY SPLICER procedure are i n the results section. VITAMIN B12, LEVEL Add-on 05/16/2019 9:12 Macrocytosis Resul ts for this AM PLY SPLICER procedure are i n the results section. PROSTATIC SPECIFIC Routine 05/16/2019 9:12 Annual physical ex am Results for this ANTIGEN SCREEN AM PLY SPLICER procedure are in the results section. documented in this encounter Results TRICHOMONAS AMPLIFIED ASSAY (05/16/2019 9:17 AM PLY SPLICER) Pathologist Sig nature Trichomonas Nucleic Negative Negative [facility] LABORATORY Acid SERVICES Specimen Urine - URINE, UNSPECIFIED SOURCE Performing Organization Address City/State/Zipcode Phone Number [facility] LABORATORY SERVICES CLIA: [id number], [address] [place] [address] [facility] GC & CHLAMYDIA AMPLIFIED ASSAY (05/16/2019 9:17 AM PLY SPLICER) Pathologist Sig [facility] C. trachomatis Nucleic Negative Negative [facility] LABORATORY Acid SERVICES N. gonorrhoeae Nucleic Negative Negative [facility] LABORATORY Acid SERVICES Specimen Urine - URINE, UNSPECIFIED SOURCE Performing Organization Address [facility] Phone Number [facility] LABORATORY SERVICES CLIA: [id number], [address] [place] [address] [facility] URINALYSIS (05/16/2019 9:17 AM PLY SPLICER) Pathologist Sig [facility] APPEARANCE Clear Clear [facility] COLOR Yellow Yellow [facility] PH 5.0 4.8 - 8.0 [facility] SP GRAVITY 1.014 1.003 - 1.030 [facility] GLU U QUAL Normal Normal [facility] BLOOD Negative Negative [facility] KETONES Negative Negative [facility] PROTEIN Negative Negative [facility] UROBILIN Normal Normal [facility] BILIRUBIN Negative Negative [facility] NITRITE Negative Negative [facility] LEUK KARTIK Negative Negative [facility] RBC/HPF 1 0 - 3 HPF [facility] WBC/HPF <1 0 - 5 HPF [facility] BACTERIA Negative Negative [facility] MUCOUS Slight (A) Negative LPF [facility] SQ EPITH <1 HPF [facility] Specimen Urine - URINE, CLEAN CATCH Performing Organization Address [facility] Phone Number [facility] CLIA: [id number], [address] [place], [place] [address] FOLATE (05/16/2019 9:12 AM PLY SPLICER) Pathologist Sig [facility] FOLATE SER 10.1 3.0 - 20.0 ng/mL [facility] LABORATORY SERVICES Specimen Blood - ARM, LEFT Performing Organization Address [facility] Phone Number [facility] LABORATORY SERVICES CLIA: [id number], [address] [place] [address] [facility] VITAMIN B12, LEVEL (05/16/2019 9:12 AM PLY SPLICER) Pathologist Sig nature VIT B12 853 240 - 930 pg/mL [facility] LABORATORY SERVICES Specimen Blood - ARM, LEFT Narrative Performed At Biotin has been reported to cause a positive bias, int erpret [facility] LABORATORY SERVICES results relative to patient's use of biotin. Performing Organization Address City/State/Zipcode Phone Number [facility] LABORATORY SERVICES CLIA: [id number], [address] [place], [place] [address] [facility] CBC WITH DIFFERENTIAL (05/16/2019 9:12 AM PLY SPLICER) Pathologist Sig nature WBC 5.42 4.20 - 10.70 [facility] 10*3/L HOSPITAL LABORATORY RBC 4.77 4.26 - 5.52 [facility] 10*6/L [facility] HGB 14.9 12.2 - 16.4 [facility] g/dL [facility] HCT 45.8 38.4 - 49.3 % [facility] MCV 96.0 (H) 81.7 - 95.6 fL [facility] MCH 31.2 26.1 - 32.7 pg [facility] MCHC 32.5 31.2 - 35.0 [facility] g/dL [facility] RDW-SD 44.6 38.5 - 51.6 fL [facility] RDW-CV 12.7 12.1 - 15.4 % [facility] PLT 215 150 - 328 [facility] 10*3/L [facility] MPV 9.4 (L) 9.8 - 13.0 fL [facility] NRBC/100 WBC 0.0 0.0 - 10.0 /100 [facility] WBCs [facility] NRBC x10^3 <0.01 10*3/L [facility] GRAN MAT (NEUT) % 69.2 % [facility] IMM GRAN % 0.40 % [facility] LYMPH % 18.8 % [facility] MONO % 8.9 % [facility] EOS % 2.0 % [facility] BASO % 0.7 % [facility] GRAN MAT x10^3(ANC) 3.75 1.99 - 6.95 [facility] 10*3/uL [facility]OSPITAL [facility]ORY IMM GRAN x10^3 <0.03 0.00 - 0.06 [facility] 10*3/uL [facility] LYMPH x10^3 1.02 (L) 1.09 - 3.23 [facility] 10*3/uL [facility] MONO x10^3 0.48 0.36 - 1.02 [facility] 10*3/uL [facility] EOS x10^3 0.11 0.06 - 0.53 [facility] 10*3/uL [facility] BASO x10^3 0.04 0.01 - 0.09 [facility] 10*3/uL [facility]ORY Specimen Blood - ARM, LEFT Performing Organization Address City/[facility]/Zipcode Phone Number [facility] CLIA: [id number], [address] [place] [address] HCV ANTIBODY (05/16/2019 9:12 AM PLY SPLICER) Pathologist Sig nature HCV Ab Negative [facility]ORATORY SERVICES HCV Semi-Quantitative 0.04 [facility] LABORATORY SERVICES Specimen Blood - ARM, LEFT Performing Organization Address City/[facility] Phone Number [facility] LABORATORY SERVICES CLIA: [id number], [address] [place] [address] 555 [facility] HIV 1/2 AG-AB WITH REFLEX (05/16/2019 9:12 AM PLY SPLICER) Pathologist Sig nature HIV 1/2 Ag-Ab with Negative Negative [facility] Reflex [facility]OSPITAL LAB[facility]ORY HIV Semi-quantitative 0.07 [facility] Specimen Blood - ARM, LEFT Narrative Performed At Non-reactive for HIV-1 antigen and HIV-1/HIV-2 [facility] antibodies. No laboratory evidence of HIV infection. Repeat in 2-4 weeks if acute HIV infection is suspected. Performing Organization Address City/[facility]/Zipcode Phone Number [facility] CLIA: [id number], [address] [place] [address] HEPATITIS B SURFACE ANTIGEN (05/16/2019 9:12 AM PLY SPLICER) Pathologist Sig nature HBsAg Negative Negative [facility] LABORATORY SERVICES HBsAg 0.05 [facility] LABORATORY Semi-Quantitative SERVICES Specimen Blood - ARM, LEFT Performing Organization Address City/State/Zipcode Phone Number [facility] LABORATORY SERVICES CLIA: [id number], [address] [place] [address] 555 [facility] ADC OR ARAMIS ONLY - RPR (05/16/2019 9:12 AM PLY SPLICER) Pathologist [facility] RPR (Qualitative) Nonreactive Nonreactive [facility] Specimen Blood - ARM, LEFT Performing Organization Address [facility] Phone Number [facility] CLIA: [id number], [address] [place] [address] PROSTATIC SPECIFIC ANTIGEN SCREEN (05/16/2019 9:12 AM PLY SPLICER) Pathologist [facility] PSA 2.09 <=4.00 ng/mL [facility] Specimen Blood - ARM, LEFT Narrative Performed At Biotin has been reported to cause a negative [facility] bias, interpret results relative to patient's use of biotin. Performing Organization Address [facility] Phone Number [facility] CLIA: [id number], [address] [place] [address] THYROID STIMULATING HORMONE (05/16/2019 9:12 AM PLY SPLICER) [facility] TSH 0.75 0.45 - 4.70 mIU/L [facility] Specimen Blood - ARM, LEFT Performing Organization Address [facility] Phone Number [facility] CLIA: [id number], [address] [place] [address] LIPID PANEL ([id number])(TOTAL CHOLESTEROL, TRIGLYCERIDES, HDL) (05/16/2019 9:12 AM PLY SPLICER) [facility] CHOL 170 120 - 200 mg/dL [facility] HDL 61 >40 mg/dL [facility] HDLC RATIO 2.8 <=5.0 [facility] TRIG 78 30 - 170 mg/dL [facility] LDL CHOL 93 <=160 mg/dL [facility] VLDL 16 5 - 60 mg/dL [facility] Specimen Blood - ARM, LEFT Performing Organization Address [facility] Phone Number [facility] CLIA: [id number], [address] [place] [address] GLYCOSYLATED HEMOGLOBIN (A1C) (05/16/2019 9:12 AM PLY SPLICER) Pathologist Sig nature HGB A1C 5.1 4.0 - 6.0 % NGSP [facility] Specimen Blood - ARM, LEFT Narrative Performed At %A1C (NGSP) Interpretation (ADA) [facility] 4.8-5.6 Normal or (Non-Diabetic Ra nge) 5.7-6.4 Increased Risk (Pre-Diabet ic) >6.5 Diabetes Indicated Performing Organization Address City/State/Zipcode Phone Number [facility] CLIA: [id number], [address] [place], [place] [address] COMP. METABOLIC PANEL (07380) (05/16/2019 9:12 AM PLY SPLICER) Pathologist Sig nature NA 139 135 - 145 mmol/L [facility] K 4.4 3.5 - 5.0 mmol/L [facility] CL 100 98 - 108 mmol/L [facility] CO2 TOTAL 29 23 - 31 mmol/L [facility] AGAP 10 2 - 16 [facility] BUN 19 7 - 23 mg/dL [facility] GLUCOSE 103 70 - 110 mg/dL [facility] CREATININE 0.80 0.60 - 1.25 [facility] mg/dL [facility] TOTAL BILI 0.6 0.1 - 1.1 mg/dL [facility] CALCIUM 9.9 8.6 - 10.6 mg/dL [facility] T PROTEIN 8.2 6.3 - 8.2 g/dL [facility] ALBUMIN 4.8 3.5 - 5.0 g/dL [facility] ALK PHOS 59 34 - 122 U/L [facility] ALTv 34 5 - 50 U/L [facility] AST(SGOT) 30 13 - 40 U/L [facility] eGFR Calculation 102.7 mL/min/1.73m2 [facility] (Non-) [facility] eGFR Calculation 124.5 mL/min/1.73m2 [facility] () [facility] Specimen Blood - ARM, LEFT Narrative Performed At Association of Glomerular Filtration Rate (GFR) [facility] and Staging of Kidney Disease* [...] tests). Performing Organization Address City/State/Zipcode Phone Number [facility] CLIA: [id number], [address] [place] [address] documented in this encounter Visit Diagnoses Diagnosis Annual physical exam - Primary Routine general medical examination at a health care facility Essential hypertension Unspecified essential hypertension Macrocytosis Other specified diseases of blood and bl ood-forming organs documented in this encounter Insurance Payer Benefit Plan / Subscriber ID Effective Dates Phone Addre ss Type Group [facility] [id number] 2017-Bianca PPO/POS PPO/POS t documented as of this encounter
--- OUTSIDE RECORDS SUMMARY | 2019-08-16 04:40 | XMS REPORT | Summary of Care ---
:1970 Author Organization [facility] Address [address] [place] [address] Care Team Providers Name Role Phone Selvin Gallardo MD Primary Care Provider Reason for Visit Reason Comments New Patient prostate (Routine) Status Reason Specialty Diagnoses / Referred By Referred To Procedures Contact Contact Authorized URO-UROLOGY / Diagnoses Increased prostate specific antigen (PSA) velocity Brigette Gallardo mm, Pamela A, Urology Procedures CONSULT/REFERRAL UROLOGY Selvin Gooden MD PIN PUSHER [address] [facility] [phone] [place], [place] Phone: [phone] Phone: Encounter Details Date Type Department Care Team Description 06/20/2019 Office Visit [facility] Urology- Angie Kaba Ele vated prostate [place] PIN PUSHER specific antigen [address] (PSA) (Primary Dx) [address] [facility] [phone] [place], [place] [phone] Allergies No Known Allergiesdocumented as of this encounter (statuses as of 06/20/2019) Medications Medication Sig Dispensed Refills Start Date [...] as of this encounter (statuses as of 06/20/2019) Active Problems Problem Noted Date Increased prostate specific antigen (PSA) velocity 08/2019 Macrocytosis 05/18/2019 B12 deficiency 07/06/2017 Leukopenia 06/04/2017 Abnormal liver function test 06/04/2017 Obesity Seasonal allergies Hypertension Overview: Diagnosed around 2015 Abnormal EKG documented as of this encounter (statuses as of 06/20/2019) Social History Tobacco Use Types Packs/Day Years [...] Sign Reading Time Taken Comments Blood Pressure 158/101 06/20/2019 2:13 PM CDT Pulse 65 06/20/2019 2:13 PM CDT Temperature 36.7 C (98 F) 06/20/2019 2:13 PM CDT Respiratory Rate - - Oxygen Saturation 99% 06/20/2019 2:13 PM CDT Inhaled Oxygen Concentration - - Weight 171.3 kg (377 lb 9.6 oz) 06/20/2019 2:13 PM CDT Height - - Body Mass Index 45.96 05/16/2019 8:52 AM 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 PSA done 05/16/2019 was 2.09, 01/2018- 0.81. He denies history of UTIs, frequency, urgency, burning, pain with intercourse, ejaculation or family history of prostate cancer. He says he did not have intercourse prior to PSA being drawn or perineal trauma. 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 Review of Systems Constitutional: Negative. Respiratory: Negative. Cardiovascular: Negative. Genitourinary: Negative. Psychiatric/Behavioral: Negative. Physical Exam Constitutional: He is oriented to person, place, and time. He appears well- developed and well-nourished. Morbidly obese Genitourinary: Genitourinary Comments: RENATO: prostate - 40 gm, benign by Dr. Means Neurological: He is alert and oriented to person, place, and time. Skin: Skin is warm and dry. Psychiatric: He has a normal mood and affect. BP (!) 158/101 | Pulse 65 | Temp 36.7 C (98 F) (Oral) | Wt 377 lb 9.6 oz (171.3 kg) | SpO2 99% | BMI 45.96 kg/m Laboratory Results for MARIA GUADALUPE CORNEJO ( ) as of 06/20/2019 14:41 Ref. Range 06/20/2019 14:35 POCT PH U Latest Ref Range: 5 - 8 mg/dl 5.0 POCT U SP GRAV Latest Ref Range: 1.005 - 1.025 mg/dl 1.020 POCT U GLU Latest Ref Range: Negative - Negative negative POCT U BLD Latest Ref Range: Negative - Negative negative POCT U KETONE Latest Ref Range: Negative - Negative negative POCT U PROT Latest Ref Range: Negative - Negative negative POCT U UROBILI Latest Ref Range: 0.2 - 1 mg/dl 0.2 POCT U BILI Latest Ref Range: Negative - Negative negative POCT U NIT Latest Ref Range: Negative - Negative negative POCT U LEUK EST Latest Ref Range: Negative - Negative negative POCT U COLOR Unknown yellow POCT U APPEAR Unknown clear Results for MARIA GUADALUPE CORNEJO ( ) as of 06/20/2019 14:41 Ref. Range 05/16/2019 09:12 PSA Latest Ref Range: <=4.00 ng/mL 2.09 Radiology No new Radiology Procedure Note None Assessment/Plan Maria Guadalupe Cornejo 49 year old male with elevated PSA PSA today Urine culture Feces culture Possible TRUS Return to clinic in 1 month Surgical Intervention Not applicable. This visit did not involve counseling and coordination that comprised more than 50% of the visit time. documented in this encounter Plan of Treatment Date Type Specialty Care Team Description 07/18/2019 Office Visit Urology Bethel Means MD [address] [place] [address]. [place] [address] Adolfo, Josemanuel Surg Spec Procedure 11/14/2019 Office Visit Family Medicine Alma Delia Gallardo MD [address] [place] [phone] Name Type Priority Associated Diagnoses Order S chedule PROSTATIC SPECIFIC LAB Routine Elevated prostate Expe cted: 06/20/2019, ANTIGEN specific antigen (PSA) Expir es: 06/19/2020 FECES CULTURE LAB Routine Elevated prostate Expected: 06/20/2019, specific antigen (PSA) Expir es: 06/19/2020 URINE CULTURE LAB Routine Elevated prostate Expected: 06/20/2019, specific antigen (PSA) Expir es: 06/19/2020 Health Maintenance Due Date Last Done Comments DTaP,Tdap,and Td Vaccines (1 - 05/16/2020 P ostponed from 1981 Tdap) (Refused) INFLUENZA VACCINE (#1) 2020 Postponed from 12/12/2018 (Refused) PNEUMOCOCCAL 0-64 YEARS COMBINED Aged Out No longer eligible based on SERIES patient's age to complete this topic documented as of this encounter Procedures Procedure Name Priority Date/Time Associated Comments Diagnosis POCT URINALYSIS AUTO Routine 06/20/2019 2:35 PM Elevated pros brandt Results for this CDT specific antigen procedure a re in (PSA) the results section. documented in this encounter Results POCT URINALYSIS, INSTRUMENT (06/20/2019 2:35 PM CDT) Pathologist Sig nature POCT U SP GRAV 1.020 1.005 - 1.025 mg/dl POCT PH U 5.0 5 - 8 mg/dl POCT U LEUK EST negative Negative - Negative POCT U NIT negative Negative - Negative POCT U PROT negative Negative - Negative POCT U GLU negative Negative - Negative POCT U KETONE negative Negative - Negative POCT U UROBILI 0.2 0.2 - 1 mg/dl POCT U BILI negative Negative - Negative POCT U BLD negative Negative - Negative POCT U COLOR yellow POCT U APPEAR clear Specimen Urine - URINE, CLEAN CATCH documented in this encounter Visit Diagnoses Diagnosis Elevated prostate specific antigen (PSA) - Primary documented in this encounter Insurance Payer Benefit Plan / Subscriber ID Effective Dates Phone Addre ss Type Group [facility] [id number] 2017-Presen PPO/POS PPO/POS t documented as of this encounter"
--- OUTSIDE RECORDS SUMMARY | 2019-08-16 04:40 | XMS REPORT | Summary of Care ---
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 Review of Systems Constitutional: Negative. Respiratory: [...] 07/18/2019 Office Visit Urology Bethel Means MD [address] [place] [address]. [place] [address] Adolfo, Josemanuel Surg Spec Procedure 11/14/2019 Office Visit Family Medicine Alma Delia Gallardo MD [address] [place] [phone] Name Type Priority Associated Diagnoses [...] Effective Dates Phone Addre ss Type Group [facility] [id number] 2017-Presen PPO/POS PPO/POS t documented as of this encounter"
--- OUTSIDE RECORDS SUMMARY | 2019-08-16 04:40 | XMS REPORT | Summary of Care ---
:1970 Author Organization [facility] Address [address] [place] [address] Care Team Providers Name Role Phone Selvin Gallardo MD Primary Care Provider Reason for Visit Reason Comments LAB Encounter Details Date Type Department Care Team Description 06/20/2019 Rn Oncology Clinical Visit [facility] Angie Kaba FNP [address] [facility] [address] [place] [address] Elevated prostate Professional Office 2, [facility] Lab specific antigen Building Phlebotomy (PSA) Lab Professional Office Building [address] [place] [address] [address] [place] [address] Allergies No Known Allergiesdocumented as of this [...] 07/18/2019 Office Visit Urology Bethel Means MD [address] [place] [phone] Rm, Adc Surg Spec Procedure 11/14/2019 Office Visit Family Medicine Alma Delia Gallardo MD [address] [place] [phone] Health Maintenance Due Date Last Done Comments DTaP,Tdap,and Td Vaccines (1 - 05/16/2020 P ostponed from 1981 Tdap) (Refused) INFLUENZA VACCINE (#1) 2020 Postponed from 12/12/2018 (Refused) PNEUMOCOCCAL 0-64 YEARS COMBINED Aged Out No longer eligible based on SERIES patient's age to complete this topic documented as of this encounter Results Not on filedocumented in this encounter Visit Diagnoses Diagnosis Elevated prostate specific antigen (PSA) documented in this encounter Insurance Payer Benefit Plan / Subscriber ID Effective Dates Phone Addre ss Type Group [facility] [id number] 2017-Bianca PPO/POS PPO/POS t documented as of this encounter
--- OUTSIDE RECORDS SUMMARY | 2019-08-16 04:40 | XMS REPORT | Summary of Care ---
:1970 Author Organization [facility] Address [address] [place] [address] Care Team Providers Name Role Phone Selvin Gallardo MD Primary Care Provider Reason for Visit Reason Comments New Patient prostate (Routine) Status Reason Specialty Diagnoses / Referred By Referred To Procedures Contact Contact Authorized URO-UROLOGY / Diagnoses Increased prostate specific antigen (PSA) velocity Brigette Gallardo mm, Pamela A, Urology Procedures CONSULT/REFERRAL UROLOGY Selvin Gooden MD SURVEY PROJECT MANAGER [address] [facility] 102 [address] [place], [place] Phone: [phone] Phone: Encounter Details Date Type Department Care Team Description 06/20/2019 Office Visit [facility] Urology- Angie Kaba Ele vated prostate [place] SURVEY PROJECT MANAGER specific antigen 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 Review of Systems Constitutional: Negative. Respiratory: [...] Treatment Date Type Specialty Care Team Description 06/20/2019 Buildings And Grounds Supervisor Visit Phlebotomy Angie Kaba FNP [address] [address] Elevated prostate 2, Adc Lab specific antigen (PSA) 07/18/2019 Office Visit Urology Bethel Means MD [address] [place] [phone] , Josemanuel Surg Spec Procedure 11/14/2019 Office Visit Family Medicine Selvin Gallardo MD 136 [place] [address] Name Type Priority Associated Diagnoses Order S [...] Effective Dates Phone Addre ss Type Group [facility] [id number] 2017-Presen PPO/POS PPO/POS t documented as of this encounter"
--- OUTSIDE RECORDS SUMMARY | 2019-08-16 04:40 | XMS REPORT | Summary of Care ---
:1970 Author Organization [facility] Address [address] [place] [address] Care Team Providers Name Role Phone Selvin Gallardo MD Primary Care Provider Reason for Visit Reason Comments New Patient prostate (Routine) Status Reason Specialty Diagnoses / Referred By Referred To Procedures Contact Contact Authorized URO-UROLOGY / Diagnoses Increased prostate specific antigen (PSA) velocity Brigette Gallardo mm, Pamela A, Urology Procedures CONSULT/REFERRAL UROLOGY Selvin Gooden MD MILK RECEIVER [address] [facility] 102 [address] [place], [place] Phone: [phone] Phone: Encounter Details Date Type Department Care Team Description 06/20/2019 Office Visit [facility] Urology- Angie Kaba Ele vated prostate [place] MILK RECEIVER specific antigen 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 Review of Systems Constitutional: Negative. [...] Date Type Specialty Care Team Description 06/20/2019 Bobbin Collector Visit Phlebotomy Angie Kaba FNP [address] [address] Elevated prostate 2, Adc Lab specific antigen (PSA) 07/18/2019 Office Visit Urology Bethel Means MD [address] [place] [phone] , Josemanuel Surg Spec Procedure 11/14/2019 Office Visit Family Medicine Selvin Gallardo MD [address] [place] [address] Name Type Priority Associated Diagnoses [...] Effective Dates Phone Addre ss Type Group [facility] [id number] 2017-Presen PPO/POS PPO/POS t documented as of this encounter"
--- OUTSIDE RECORDS SUMMARY | 2019-08-16 04:41 | XMS REPORT | Summary of Care ---
:1970 Author Organization [facility] Address [address] [place] [address] Care Team Providers Name Role Phone Selvin Gallardo MD Primary Care Provider Reason for Visit Reason Comments Results Encounter Details Date Type Department Care Team Description 06/23/2019 Telephone [facility] Urology- Michelle Means MD Results [address] [facility] [place] [address] [address] [place] [address] [phone] Allergies No Known Allergiesdocumented as of this encounter (statuses as of 06/23/2019) Medications Medication Sig Dispensed Refills Start Date [...] as of this encounter (statuses as of 06/23/2019) Active Problems Problem Noted Date Increased prostate specific antigen (PSA) velocity 08/2019 Macrocytosis 05/18/2019 B12 deficiency 07/06/2017 Leukopenia 06/04/2017 Abnormal liver function test 06/04/2017 Obesity Seasonal allergies Hypertension Overview: Diagnosed around 2015 Abnormal EKG documented as of this encounter (statuses as of 06/23/2019) Social History Tobacco Use Types Packs/Day Years [...] Office Visit Urology Bethel Means MD [address] [place] [phone] Rm, Josemanuel Surg Spec Procedure 11/14/2019 Office Visit Family Medicine Alma Delia Gallardo MD [address] [place] [phone] Health Maintenance Due Date Last [...] Phone Addre ss Type Group [facility] [id number] 2017-Presen PPO/POS PPO/POS t documented as of this encounter
--- OUTSIDE RECORDS SUMMARY | 2019-08-16 04:41 | XMS REPORT | Summary of Care ---
:1970 Author Organization [facility] Address [address] [place] [address] Care Team Providers Name Role Phone Selvin Gallardo MD Primary Care Provider Reason for Visit Reason Comments Follow-up Encounter Details Date Type Department Care Team Description 06/23/2019 Telephone [facility] Urology- Michelle Means MD Follow-up [address] [place] [address] [place] [address] [address] [place] [address] [phone] Allergies No Known Allergiesdocumented as of this [...] 07/18/2019 Office Visit Urology Bethel Means MD [address] [place] [phone] 11/14/2019 Office Visit Family Medicine Alma Delia Gallardo MD [address] [place], [place] [phone] Health Maintenance Due Date Last Done [...] Phone Addre ss Type Group [facility] [id number] 2017-Presen PPO/POS PPO/POS t documented as of this encounter
--- OUTSIDE RECORDS SUMMARY | 2019-08-16 04:41 | XMS REPORT | Summary of Care ---
:1970 Author Organization [facility] Address [address] [place] [address] Care Team Providers Name Role Phone Selvin Gallardo MD Primary Care Provider Reason for Visit Reason Comments Establish Care Encounter Details Date Type Department Care Team Description 07/18/2019 Telemedicine Visit [facility] Benjie Means MD Elevated prostate specific antigen (PSA) (Primary Dx); Urology- [address] Impotence of organic origin [address] [place] [address]. [place], [place] [phone] [place], [place] [phone] [address] [phone] Allergies No Known Allergiesdocumented as of this encounter (statuses as of 07/18/2019) Medications Medication Sig Dispensed Refills Start Date [...] as of this encounter (statuses as of 07/18/2019) Active Problems Problem Noted Date Increased prostate specific antigen (PSA) velocity 08/2019 Macrocytosis 05/18/2019 B12 deficiency 07/06/2017 Leukopenia 06/04/2017 Abnormal liver function test 06/04/2017 Obesity Seasonal allergies Hypertension Overview: Diagnosed around 2015 Abnormal EKG documented as of this encounter (statuses as of 07/18/2019) Social History Tobacco Use Types Packs/Day Years [...] Signs Not on filedocumented in this encounter Progress Notes Bethel Means MD - 07/18/2019 8:30 AM CDT TELEHEALTH NOTE Verbal consent obtained from Patient: Kleber Cornejo for telehealth services provided below. Communication with patient was conducted via Telephone. Location of Patient: Home Location of Provider: Office Date of Service: 07/17 Referred by: Dr Gallardo Chief Complaint: I was asked to give my opinion regarding Kleber Cornejo is a 49 year old male who presents with increased PSA velocity. History of Present Illness 07/18/2019: Kleber Cornejo is a 49 year old male with PMHx HTN, was found to have increased PSA velocity from 0.8 to around 2 over two years. Denied LUTS, hematuria, dysuria Normal erections with no painful ejaculations No previous hx of prostatitis or STI Ex-smoker No family hx of prostate or cancer International Prostate Symptom Score (I-PSS) In the past month: (Not at all - 0, Less than 1 in 5 times - 1, Less than half the time - 2, About half the time - 3, More than half the time - 4, Almost always - 5) 1. Incomplete Emptyin 2. Frequency: 0 3. Intermittency: 0 4. Urgency: 0 5. Weak Stream: 0 6. Strainin 7. Nocturia: 2 TOTAL: 2 Bother score: 1 PSAs reviewed: PSA (ng/mL) Date Value 06/20/2019 2.09 05/16/2019 2.09 01/18/2018 0.81 Patient reported no decrease in libido or lack of energy Hx difficulty initiating/maintaining erections ,which persistent difficulty and during self stimulation. Occasional morning erections No Hx of penile trauma or penile curvature No hx anxiety or depression , in a stable relationship. No Hx of using PDE5I, ICI, JAMES. No recent deterioration in his ability to play sports Hx refreshing sleep , occasional snoring and feeling tired during daytime and falling asleep after dinner. O hx of FREDY No Hx LUTS No Hx of cardiovascular events (e.g., myocardial infarction, stroke, TIA) and no recent event withinthe last 6 months. Patient reported that he did attempt lifestyle modifications( weight loss, dieting, healthy life style habits) No previous Hx of TRT Gel, IM q 2 or 10 weeks, Testopel. Or clomphine citrate /b-HCG. No Hx of anabolic steroid Patient is not interested in preserving fertility. 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 Allergies No Known Allergies Review of Systems Constitutional: negative Eyes: negative Ears, nose, mouth, throat: negative Cardiovascular: negative Respiratory: negative Gastrointestinal: negative Genitourinary: (+) per HPI Musculoskeletal: negative Integumentary: negative Neurological: negative Psychiatric: negative Endocrine: negative Hematologic/Lymphatic: negative Allergic/Immunologic: negative, allergies listed above Physical Examination There were no vitals taken for this visit. Laboratory Per HPI Radiology No final results containing an impression from the past 30 days were found. Assessment Kleber Cornejo is a 49 year old male with PMHx HTN and no family of prostate cancer: 1. Increased PSA velocity from 0.8 in 2018 to 2.07 in 2020 2. ED over the last year I counseled the patient regarding considering a trial of PDE5i, first line therapy for ED, I would recommend 20 mg Cialis prior to sexual activity (2-3 times /week). Possible side effects have some side effects like headache, nasal congestions, flushing, visual disturbances , myalgia and priapism.Patient advised that is contraindicated to take any PDE5i if he is on Nitrate. Second line options to be considered : Vacuum Erection Device (JAMES) with a penile ring, JAMES is a non-invasive modality. Although it is easy to use some men can find it cumbersome, we advise patients to consider it as part of the sexual act. It should not be used for more than 30 mins, and it may cause bruising and interfere with ejaculation. The other second line option is IntraCavernosal Injections(ICI) with vasoactive agents to induce an erection. Patient will be trained in clinic on how inject his penis safely. Once the appropriate dose is decided and with correct injection technique, ICI produces reliable response in over than 90% of cases. Nevertheless, ICI has well known complications includ ing: penile pain in around 7-10% of patients if very severe then ICI must be stopped, around 1-3 % risk of bleeding, pain, infection and scarring from repeated injections. The most serious complicationfrom ICI is priapism which is a prolonged erection not related to sexual stimulation that lasts morethan 3 hours, it is a medical emergency and the patient will have required to attend ER, as prolonged erection can result in worse erectile dysfunction and fibrosis in the penis. The third line option should be considered which is Inflatable Penile Prosthesis (IPP), it is a wellestablished treatment options and in experienced hands the satisfaction rate is more than 93%, patient will be always dependent on the device to have an erection and 10 years after surgery 93% of patients retain their devices. IPP surgery is associated with pain, bleeding, pain and infection 1-3%. There is an element of penile shortening after surgery, but with no change is penile sensation or sexualexperience. IPP is an excellent option when second line options fail (JAMES, ICI). The procedure is usually performed under general or spinal anaesthetic, the actual surgery is about 60-90 minutes and the patient stay in hospital overnight and goes home the following morning. We advise patient to avoid any strenuous physical activity for 10-14 days after surgery, and to attend the clinic in 2 weeks forwound check and 6 weeks for device activation, after which the patient can use the device. Patient opted for a trial of Cialis Plan - Trial of Cialis 20 mg - RTC 3 months with up to date PSA and AM T level, if PSA same level may consider MRI with a plan for targeted biopsy pending RENATO and up to date PSA. No obvious risk factors for prostate cancer doubling time around 2 years, if PSA continue to rise will need prostate biopsy. We also taking in consideration COVID-19 outbreak. Patient voiced understanding Bethel Means MD documented in this encounter Plan of Treatment Date Type Specialty Care Team Description 11/14/2019 Office Visit Family Medicine [facility] Delia Gallardo MD [address] [place] [address] [phone] Name Type Priority Associated Diagnoses Order S chedule PROSTATIC SPECIFIC ANTIGEN LAB Routine Elevated prost ate Expected: 07/18/2019, specific antigen (PSA) Expir es: 07/17/2020 TESTOSTERONE LAB Routine Impotence of organic Expecte d: 07/18/2019, origin Expires: 2020 Health Maintenance Due Date Last Done Comments [...] Elevated prostate specific antigen (PSA) - Primary Impotence of organic origin documented in this encounter Insurance Payer Benefit Plan / Subscriber ID Effective Dates Phone Addre ss Type Group [facility] [id number] 2017-Presen PPO/POS PPO/POS t documented as of this encounter
--- OUTSIDE RECORDS SUMMARY | 2019-08-16 04:41 | XMS REPORT | Summary of Care ---
:1970 Author Organization [facility] Address [address] [place] [address] Care Team Providers Name Role Phone Selvin Gallardo MD Primary Care Provider Encounter Details Date Type Department Care Team Description 06/20/2019 Orders Only [facility] Doctor Unassigned, No [address] [facility] [place] [address] [address] [place] [address] Allergies No Known Allergiesdocumented as of this encounter (statuses as of 06/24/2019) Medications Medication Sig Dispensed Refills Start Date [...] as of this encounter (statuses as of 06/24/2019) Active Problems Problem Noted Date Increased prostate specific antigen (PSA) velocity 08/2019 Macrocytosis 05/18/2019 B12 deficiency 07/06/2017 Leukopenia 06/04/2017 Abnormal liver function test 06/04/2017 Obesity Seasonal allergies Hypertension Overview: Diagnosed around 2015 Abnormal EKG documented as of this encounter (statuses as of 06/24/2019) Social History Tobacco Use Types Packs/Day Years [...] 07/18/2019 Office Visit Urology Bethel Means MD [address] [place] [address]. [place], [place] [phone] 11/14/2019 Office Visit Family Medicine [facility] Delia Gallardo MD [address] [place], [place] [phone] Health Maintenance Due Date Last Done Comments DTaP,Tdap,and Td Vaccines (1 - 05/16/2020 P ostponed from 1981 Tdap) (Refused) INFLUENZA VACCINE (#1) 2020 Postponed from 12/12/2018 (Refused) PNEUMOCOCCAL 0-64 YEARS COMBINED Aged Out No longer eligible based on SERIES patient's age to complete this topic documented as of this encounter Procedures Procedure Name Priority Date/Time Associated Diagnosis Comme nts AGREEMENTS AUTHORIZATIONS Routine 06/20/2019 12:01 AM AND IRREVOCABLE CDT ASSIGNMENTS (FORM 2001) documented in this encounter Results Not on filedocumented in this encounter Insurance Payer Benefit Plan / Subscriber ID Effective Dates Phone Addre ss Type Group [facility] [id number] 2017-Presen PPO/POS PPO/POS t documented as of this encounter
--- OUTSIDE RECORDS SUMMARY | 2019-08-16 04:41 | XMS REPORT | Summary of Care ---
:1970 Author Organization [facility] Address [address] [place] [address] Care Team Providers Name Role Phone Selvin Gallardo MD Primary Care Provider Reason for Visit Reason Comments Ankle Pain and swelling Encounter Details Date Type Department Care Team Description 08/15/2019 Telemedicine Visit [facility] Selvin Gallardo Cell ulitis of left ankle (Primary Dx); Pediatric and Adult MD Giacomo Impetigo Primary Care- [address] [place], [place] [id number] , [address] [place], [place] [phone] [address] (Fax) [phone] Allergies No Known Allergiesdocumented as of this encounter (statuses as of 08/15/2019) Medications Medication Sig Dispensed Refills Start Date End Date Status vitamin B-12 Take 1 tablet by 0 07/06/2017 Active (VITAMIN B-12) 1,000 mouth daily. mcg tablet aspirin (ADULT LOW Take 81 mg by 0 Active DOSE ASPIRIN) 81 mg mouth daily. EC tablet losartan 100 mg Take 1 tablet by 90 tablet 3 05/16/2019 Active tabletIndications: mouth daily. Essential hypertension clindamycin 300 mg Take 1 capsule by 30 capsule 0 08/15/2019 0 08/25/2019 Active capsuleIndications: mouth 3 (three) Cellulitis of left times daily for ankle, Impetigo 10 days. Take a daily probiotic while on this medication. mupirocin 2 % Apply to area(s) 22 g 1 08/15/2019 Active ointmentIndications: 3 (three) times Cellulitis of left daily. ankle, Impetigo documented as of this encounter (statuses as of 08/15/2019) Active Problems Problem Noted Date Increased prostate specific antigen (PSA) velocity 08/2019 Macrocytosis 05/18/2019 B12 deficiency 07/06/2017 Leukopenia 06/04/2017 Abnormal liver function test 06/04/2017 Obesity Seasonal allergies Hypertension Overview: Diagnosed around 2015 Abnormal EKG documented as of this encounter (statuses as of 08/15/2019) Social History Tobacco Use Types Packs/Day Years [...] Signs Not on filedocumented in this encounter Patient Instructions Patient InstructionsCoSelvin saunders MD - 08/15/2019 3:15 PM CDT Patient Education Cellulitis Cellulitis is an infection of the deep layers of skin. A break in the skin, such as a cut or scratch, can let bacteria under the skin. If the bacteria get to deep layers of the skin, it can be serious.If not treated, cellulitis can get into the bloodstream and lymph nodes. The infection can then spread throughout the body. This causes serious illness. Cellulitis causes the affected skin to become red, swollen, warm, and sore. The reddened areas have a visible border. An open sore may leak fluid (pus). You may have a fever, chills, and pain. Cellulitis is treated with antibiotics taken for 7 to 10 days. An open sore may be cleaned and covered with cool wet gauze. Symptoms should get better 1 to 2 days after treatment is started. Make sure to take all the antibiotics for the full number of days until they are gone. Keep taking the medicineeven if your symptoms go away. Home care Follow these tips: Limit the use of the part of your body with cellulitis. If the infection is on your leg, keep your leg raised while sitting. This helps reduce swelling. Take all of the antibiotic medicine exactly as directed until it is gone. Don't miss any doses, especially during the first 7 days. Dont stop taking the medicine when your symptoms get better. Keep the affected area clean and dry. Wash your hands with soap and clean, running water before and after touching your skin. Anyone else who touches your skin should also wash his or her hands. Don't share towels. Follow-up care Follow up with your healthcare provider, or as advised. If your infection doesn't go away on the first antibiotic, your healthcare provider will prescribe a different one. When to seek medical advice Call your healthcare provider right away if any of these occur: Red areas that spread Swelling or pain that gets worse Fluid leaking from the skin (pus) Fever higher of 100.4 F (38.0 C) or higher after 2 days on antibiotics [employer] last reviewed this educational content on 11/11/201819991245-1236 [employer]. [address] [place] [address]. All rights reserved. This information is not intended as a substitute for professional medical care. Always follow your healthcare professional's instructions. documented in this encounter Progress Notes Selvin Gallardo MD - 08/15/2019 3:15 PM CDT TELEHEALTH NOTE Verbal consent obtained from Patient: Kleber Cornejo due to the COVID-19 pandemic for telehealth services provided below. Communication with patient was conducted via Video Call. Location of Patient: Home Location of Provider: Office Date of Service: 08/15/2019 CC: Chief Complaint Patient presents with Ankle Pain and swelling HPI Kleber Cornejo is a 49 year old male who participated in a Telehealth visit today for left ankle pain and swelling. Cellulitis This is a new problem. The cellulitis started in the past 7 days. The problem has been gradually worsening since onset. Cellulitis is located in the left ankle. The cellulitis characteristics are scaling, redness, swelling and pain. Their associated symptoms are edema (left ankle only, no calf pain or leg swelling) and joint pain (left ankle only). Their associated symptoms are no anorexia, no diarrhea, no fatigue, no fever, no sore throat and no vomiting. He had tried moisturizer for the symptoms. The treatment provided no relief. No Known Allergies Current Outpatient Medications on File Prior to Visit Medication Sig Dispense Refill losartan 100 mg tablet Take 1 tablet by mouth daily. 90 tablet 3 aspirin (ADULT LOW DOSE ASPIRIN) 81 mg EC tablet Take 81 mg by mouth daily. vitamin B-12 (VITAMIN B-12) 1,000 mcg tablet Take 1 tablet by mouth daily. No current facility-administered medications on file prior to visit. 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 Review of Systems Constitutional: Negative. Negative for fatigue and fever. HENT: Negative. Negative for sore throat. Eyes: Negative. Respiratory: Negative. Cardiovascular: Negative. Gastrointestinal: Negative. Negative for anorexia, diarrhea and vomiting. Genitourinary: Negative. Musculoskeletal: Positive for arthralgias (left ankle only). Joint swelling: left ankle only. Skin: Negative. Neurological: Negative. Psychiatric/Behavioral: Negative. Endocrine: Endocrine negative Vital signs Level of pain 4. Physical Exam Constitutional: He is oriented to person, place, and time. He appears well- developed and well-nourished. No distress. Pulmonary/Chest: Effort normal. No stridor. No respiratory distress. No audible adventitious breath sounds Musculoskeletal: Left ankle: He exhibits decreased range of motion and swelling. Tenderness. Neurological: He is alert and oriented to person, place, and time. Skin: Rash (erythematous, indurated-appearing, skin on the left ankle with numerous crusty excoriations) noted. No pallor. Psychiatric: He has a normal mood and affect. His speech is normal and behavior is normal. Judgment and thought content normal. Cognition and memory are normal. LABS: CBC CMP WBC (10*3/L) Date Value 05/16/2019 5.42 NA (mmol/L) Date Value 05/16/2019 139 RBC (10*6/L) Date Value 05/16/2019 4.77 K (mmol/L) Date Value 05/16/2019 4.4 PLT (10*3/L) Date Value 05/16/2019 215 CALCIUM (mg/dL) Date Value 05/16/2019 9.9 HGB (g/dL) Date Value 05/16/2019 14.9 CL (mmol/L) Date Value 05/16/2019 100 HCT (%) Date Value 05/16/2019 45.8 BUN (mg/dL) Date Value 05/16/2019 19 LIPID PANEL CREATININE (mg/dL) Date Value 05/16/2019 0.80 CHOL (mg/dL) Date Value 05/16/2019 170 GLUCOSE (mg/dL) Date Value 05/16/2019 103 LDL CHOL (mg/dL) Date Value 05/16/2019 93 CO2 TOTAL (mmol/L) Date Value 05/16/2019 29 HDL (mg/dL) Date Value 05/16/2019 61 ALBUMIN Date Value Ref Range Status 05/16/2019 4.8 3.5 - 5.0 g/dL Final TRIG (mg/dL) Date Value 05/16/2019 78 T PROTEIN Date Value Ref Range Status 05/16/2019 8.2 6.3 - 8.2 g/dL Final TSH TOTAL BILI Date Value Ref Range Status 05/16/2019 0.6 0.1 - 1.1 mg/dL Final TSH (mIU/L) Date Value 05/16/2019 0.75 No components found for: BILIUNCOM BILI CONJ Date Value Ref Range Status 06/30/2017 0.0 0.0 - 0.3 mg/dL Final ALT(SGPT) Date Value Ref Range Status 05/24/2018 42 9 - 51 U/L Final ALTv Date Value Ref Range Status 05/16/2019 34 5 - 50 U/L Final AST(SGOT) Date Value Ref Range Status 05/16/2019 30 13 - 40 U/L Final ALK PHOS Date Value Ref Range Status 05/16/2019 59 34 - 122 U/L Final ASSESSMENT/PLAN Diagnoses and all orders for this visit: ICD-10-CM ICD-9-CM 1. Cellulitis of left ankle L03.116 682.6 2. Impetigo L01.00 684 Antibiotic treatment is warranted given the video exam findings. The patient was told to be sure tocomplete the full antibiotic course. I also recommended the following: Keep the area clean and dry. Antibiotic ointment (mupirocin prescribed) to the crusty excoriated areas. Elevate the area aboveheart level to help reduce swelling and to hasten the healing process. Wash hands regularly and avoid sharing personal hygiene items like towels to help prevent spread of certain bacterial infections to others. Strong ER precautions were given for worsening symptoms. Orders: - clindamycin 300 mg capsule; Take 1 capsule by mouth 3 (three) times daily for 10 days. Take a daily probiotic while on this medication. - mupirocin 2 % ointment; Apply to area(s) 3 (three) times daily. Plan of care, desired health behaviors, goals, Ddx, and any prescribed medications were discussed with the patient. Education resources and self- management tools were provided in the After Visit Summary (AVS) which is accessible through [employer]. A total of 25 minutes was spent on the Video Call, chart review, and coordination of care with specialists. Patient/guardian/family verbalized understanding and agrees to the plan of care. Barriers to care: None. Ability to manage care: Good. Advanced care planning (living will) information was not given/offered to the patient to review for discussion at a future visit. If applicable, the [place] [employer] database was accessed to review any controlled substance prescription claims data. If the patient is taking prescribed medications, the [employer] prescription claims data in [employer] was reviewed to assess patient compliance with the medication treatment plan. COVID-19 precautions given including frequent handwashing, social distancing, cleaning and disinfecting, indications for testing, etc. Follow-up: Return if symptoms worsen or fail to improve. Return for routine care as scheduled or previously advised. Scribe Attestation Kaye Farrell , am scribing for, and in the presence of, Selvin Gallardo MD who performed the services described here-in. Kaye Dyson, August 15, 2019, 1:49 PM Physician Attestation Jami, Selvin Gallardo MD, personally performed the services described in this documentation , as scribed by, Kaye Dyson in my presence and it is both accurate and complete. Sevlin Gallardo MD August 15, 2019, 1:49 PM documented in this encounter Plan of Treatment Date Type Specialty Care Team Description 10/28/2019 Office Visit Urology Bethel Means MD [address] [place] [phone] 11/14/2019 Office Visit Family Medicine [facility] Delia Gallardo MD [address] [place] [phone] Health Maintenance Due Date Last Done Comments DTaP,Tdap,and Td Vaccines (1 - 05/16/2020 P ostponed from 1981 Tdap) (Refused) INFLUENZA VACCINE (Season Ended) 2020 Postponed from 12/13/2019 (Refused) PNEUMOCOCCAL 0-64 YEARS COMBINED Aged Out No longer eligible based on SERIES patient's age to complete this topic documented as of this encounter Results Not on filedocumented in this encounter Visit Diagnoses Diagnosis Cellulitis of left ankle - Primary Cellulitis and abscess of leg, except fo ot Impetigo documented in this encounter Insurance Payer Benefit Plan / Subscriber ID Effective Dates Phone Addre ss Type Group [facility] [id number] 2017-Presen PPO/POS PPO/POS t documented as of this encounter
--- NOTE | 2019-08-16 05:00 | ER ---
Nurse's Notes [facility] Name: Kleber Cornejo Jr Age: 49 yrs Sex: Male : 1970 Arrival Date: 08/16/2019 Time: 04:36 Bed 13 Private MD: Diagnosis: Cellulitis of left lower limb Presentation: 08/15 04:45 Chief complaint: Patient states: left ankle swelling and a little pain that that wh started a week ago. Coronavirus screen: Proceed with normal triage. Patient denies a cough. Patient denies shortness of breath or difficulty breathing. Patient denies measured and/or subjective temperature greater than 100.4F prior to today's visit. Patient denies travel on a cruise ship or to a country the [facility] currently lists as an affected area. Patient denies contact with known and/or suspected case of COVID-19. Ebola Screen: Patient negative for fever greater than or equal to 101.5 degrees Fahrenheit, and additional compatible Ebola Virus Disease symptoms Patient denies exposure to infectious person. Initial Sepsis Screen: Does the patient meet any 2 criteria? No. Patient's initial sepsis screen is negative. Does the patient have a suspected source of infection? No. Patient's initial sepsis screen is negative. Risk Assessment: Do you want to hurt yourself or someone else? Patient reports no desire to harm self or others. Onset of symptoms is unknown. 04:45 Method Of Arrival: Ambulatory 04:45 Acuity: BRANDON 4 Historical: - Allergies: 04:39 MOLDS; sg - Home Meds: 04:50 aspirin 81 mg Oral TbEC 1 tab once daily [Active]; losartan 100 mg oral tab 1 tab once wh daily [Active]; Vitamin B-12 1,000 mcg Oral tab [Active]; - PMHx: 04:39 Hypertension; sg - PSHx: 04:50 Hernia repair; Tonsillectomy; wh - Immunization history:: Adult Immunizations not up to date. - Social history:: Smoking status: Patient reports the use of cigarette tobacco products. Screenin:49 Abuse screen: Denies threats or abuse. Denies injuries from another. Nutritional screening: No deficits noted. Tuberculosis screening: No symptoms or risk factors identified. Fall Risk None identified. Assessment: 04:47 General: Appears in no apparent distress. Behavior is calm, cooperative, appropriate wh for age. Pain: Denies pain. Neuro: Level of Consciousness is awake, alert, obeys commands, Oriented to person, place, time, situation, Appropriate for age. Cardiovascular: Heart tones S1 S2 Edema left ankle. Respiratory: Airway is patent Respiratory effort is even, unlabored, Respiratory pattern is regular, symmetrical, Breath sounds are clear bilaterally. GI: Abdomen is flat, non-distended. : No signs and/or symptoms were reported regarding the genitourinary system. EENT: No signs and/or symptoms were reported regarding the EENT system. Derm: Skin is redness on left ankle. Musculoskeletal: Circulation, motion, and sensation intact. Vital Signs: 04:45 BP 148 / 102; Pulse 60; Resp 18; Temp 98.3; Pulse Ox 100% ; Weight 170.1 kg; Height 6 wh ft. 4 in. (193.04 cm); 04:45 Body Mass Index 45.65 (170.10 kg, 193.04 cm) ED Course: 04:36 Patient arrived in ED. cl3 04:40 Triage completed. sg 04:40 Arm band placed on. 04:45 Elan Maurer is Primary Nurse. 04:51 Patient has correct armband on for positive identification. Bed in low position. Call light in reach. Side rails up X 1. Pulse ox on. NIBP on. 04:57 Sunday Barbosa MD is Attending Physician. tw4 05:15 No provider procedures requiring assistance completed. Patient did not have IV access during this emergency room visit. Administered Medications: 05:10 Drug: Cleocin 300 mg Route: PO; 05:23 Follow up: Response: No adverse reaction 05:10 Drug: Ibuprofen 800 mg Route: PO; 05:23 Follow up: Response: No adverse reaction Outcome: 04:59 Discharge ordered by . tw4 05:15 Discharged to home ambulatory. 05:15 Condition: stable 05:15 Discharge instructions given to patient, Instructed on discharge instructions, follow up and referral plans. medication usage, POC Demonstrated understanding of instructions, follow-up care, medications, POC Prescriptions given X 2. 05:18 Patient left the ED. Signatures: James Riddle RN RN Elan Maurer Sunday Barbosa MD MD tw4 Roel Hinojosa cl3 Corrections: (The following items were deleted from the chart) 04: 04:40 Coronavirus screen: Proceed with normal triage. [facility] :42 04:40 Ebola Screen: Patient negative for fever greater than or equal to 101.5 degrees sg Fahrenheit, and additional compatible Ebola Virus Disease symptoms Patient denies exposure to infectious person. Patient denies travel to an Ebola-affected area in the 21 days before illness onset. No symptoms or risks identified at this time. : 04:40 Initial Sepsis Screen: Does the patient meet any 2 criteria? No. Patient's sg initial sepsis screen is negative. Does the patient have a suspected source of infection? No. Patient's initial sepsis screen is negative. : 04:40 Risk Assessment: Do you want to hurt yourself or someone else? Patient reports no sg desire to harm self or others. : 04:40 Onset of symptoms was August 16, 2019 [facility] : 04:40 Care prior to arrival: None. [facility] : 04:40 Transition of care: patient was not received from another setting of care. [facility] : 04:40 Activity prior to arrival: None. [facility] : 04:40 Acuity: BRANDON 4 [facility] :42 04:40 Method Of Arrival: Ambulatory [facility] 04:42 Acuity: Unassigned [facility]
[2019-08-16] MEDS ORDERED: IBUPROFEN 400 MG TAB ONE (05:13)
[2019-08-16 05:26] VITALS: BP 148/102; TEMP 98.3; O2SAT 100
--- NOTE | 2019-08-17 05:18 | EDPHYS ---
Physician Documentation [facility] Name: Kleber Cornejo Jr Age: 49 yrs Sex: Male : 1970 Arrival Date: 08/16/2019 Time: 04:36 Bed 13 Private MD: KESHAV Physician Sunday Barbosa HPI: 08/15 06:27 This 49 yrs old Male presents to ER via Ambulatory with complaints of Ankle tw4 Swelling. 06:27 The patient presents with cellulitis of the left lateral ankle, the patient presents tw4 with a swollen area of the left lateral ankle. Onset: The symptoms/episode began/occurred today. Possible cause(s): unknown. Associated signs and symptoms: The patient has no apparent associated signs or symptoms. Modifying factors: the symptoms are alleviated by nothing, the symptoms are aggravated by nothing. The patient has not experienced similar symptoms in the past. Historical: - Allergies: 04:39 MOLDS; sg - Home Meds: 04:50 aspirin 81 mg Oral TbEC 1 tab once daily [Active]; losartan 100 mg oral tab 1 tab once wh daily [Active]; Vitamin B-12 1,000 mcg Oral tab [Active]; - PMHx: 04:39 Hypertension; sg - PSHx: 04:50 Hernia repair; Tonsillectomy; wh - Immunization history:: Adult Immunizations not up to date. - Social history:: Smoking status: Patient reports the use of cigarette tobacco products. ROS: 06:27 Constitutional: Negative for fever, chills, and weight loss, Eyes: Negative for injury, tw4 pain, redness, and discharge, Cardiovascular: Negative for chest pain, palpitations, and edema, Respiratory: Negative for shortness of breath, cough, wheezing, and pleuritic chest pain, Abdomen/GI: Negative for abdominal pain, nausea, vomiting, diarrhea, and constipation, Back: Negative for injury and pain. 06:27 MS/extremity: Positive for erythema, pain, swelling, tenderness, warmth, Negative for injury or acute deformity, abrasion, contusion, decreased range of motion, deformity, ecchymosis, laceration. 06:27 Skin: Positive for cellulitis, erythema, Negative for burn, jaundice. Exam: 06:27 Constitutional: This is a well developed, well nourished patient who is awake, alert, tw4 and in no acute distress. Head/Face: Normocephalic, atraumatic. Chest/axilla: Normal chest wall appearance and motion. Nontender with no deformity. No lesions are appreciated. Cardiovascular: Regular rate and rhythm with a normal S1 and S2. No gallops, murmurs, or rubs. Normal PMI, no JVD. No pulse deficits. Respiratory: Lungs have equal breath sounds bilaterally, clear to auscultation and percussion. No rales, rhonchi or wheezes noted. No increased work of breathing, no retractions or nasal flaring. Abdomen/GI: Soft, non-tender, with normal bowel sounds. No distension or tympany. No guarding or rebound. No evidence of tenderness throughout. Neuro: Awake and alert, GCS 15, oriented to person, place, time, and situation. Cranial nerves II-XII grossly intact. Motor strength 5/5 in all extremities. Sensory grossly intact. Cerebellar exam normal. Normal gait. Psych: Awake, alert, with orientation to person, place and time. Behavior, mood, and affect are within normal limits. 06:27 Musculoskeletal/extremity: Extremities: noted in the left lateral ankle: erythema, pain. 06:27 Skin: cellulitis, that is mild, on the left lateral ankle. Vital Signs: 04:45 BP 148 / 102; Pulse 60; Resp 18; Temp 98.3; Pulse Ox 100% ; Weight 170.1 kg; Height 6 wh ft. 4 in. (193.04 cm); 04:45 Body Mass Index 45.65 (170.10 kg, 193.04 cm) MDM: 04:57 Patient medically screened. tw4 06:27 Differential diagnosis: cellulitis. Data reviewed: vital signs, nurses notes. Data tw4 interpreted: Pulse oximetry: Interpretation: normal. Counseling: I had a detailed discussion with the patient and/or guardian regarding: the historical points, exam findings, and any diagnostic results supporting the discharge/admit diagnosis. Special discussion: I discussed with the patient/guardian in detail that at this point there is no indication for admission to the hospital. It is understood, however, that if the symptoms persist or worsen the patient needs to return immediately for re-evaluation. Administered Medications: 05:10 Drug: Cleocin 300 mg Route: PO; 05:23 Follow up: Response: No adverse reaction 05:10 Drug: Ibuprofen 800 mg Route: PO; 05:23 Follow up: Response: No adverse reaction Disposition: 08/16/19 04:59 Discharged to Home. Impression: Cellulitis of left lower limb. - Condition is Stable. - Discharge Instructions: Cellulitis, Adult. - Prescriptions for Cleocin 300 mg Oral Capsule - take 1 capsule by ORAL route every 6 hours for 10 days; 40 capsule. Ibuprofen 800 mg Oral Tablet - take 1 tablet by ORAL route every 8 hours As needed take with food; 30 tablet. - Work release form, Medication Reconciliation Form, Thank You Letter, Antibiotic Education, Prescription Opioid Use form. - Follow up: Private Physician; When: Upon discharge from the Emergency Department; Reason: Recheck today's complaints, Continuance of care, Re-evaluation by your physician. - Problem is new. - Symptoms are unchanged. Signatures: James Riddle RN RN sg Elan Maurer Sunday Barbosa MD MD tw4 Corrections: (The following items were deleted from the chart) 05:18 04:59 08/16/2019 04:59 Discharged to Home. Impression: Cellulitis of left lower limb. sg Condition is Stable. Forms are Medication Reconciliation Form, Thank You Letter, Antibiotic Education, Prescription Opioid Use. Follow up: Private Physician; When: Upon discharge from the Emergency Department; Reason: Recheck today's complaints, Continuance of care, Re-evaluation by your physician. Problem is new. Symptoms are unchanged. tw4
== END 2019-08-16 05:18 | disposition home or self-care (01) ==
LOC: ER 04:35
DX: L03.116 Cellulitis of left lower limb (principal); I10 Essential (primary) hypertension; Z72.0 Tobacco use; Z79.82 Long term (current) use of aspirin; Z91.048 Other nonmedicinal substance allergy status
CPT/HCPCS: 99283

== ENCOUNTER 2019-10-20 15:46 | Emergency (ER) | payer OTHER ==
--- OUTSIDE RECORDS SUMMARY | 2019-10-20 20:02 | XMS REPORT | Continuity of Care Document ---
:1970 Author Organization [facility] t Address [address] [place] [address] Care Team Providers Name Role Phone Doctor Unassigned, Name Attending Clinician Unavailable Sami DE OLIVEIRA, A Attending Clinician Problems This patient has no known problems. Allergies, Adverse Reactions, Alerts This patient has no known allergies or adverse reactions. Medications This patient has no known medications. Procedures This patient has no known procedures. Encounters Start End Encounter Admission Attending Care Care Encounter Source Date/Time Date/Time Type Type Clinicians Facility Department ID 2019-10-20 2019-10-20 Orders Doctor LOLY [id number] 00:00:00 00:00:00 Only Unass[facility]ORO [place] [id number] [place] [facility] [id number] 2019-10-04 2019-10-04 Office SALVADOR Gallardo [id number] 15:41:24 16:12:52 Visit Selvin Lee [id number] [place] [id number] Professbartolo [phone] nal 044 Building Results This patient has no known results.
--- OUTSIDE RECORDS SUMMARY | 2019-10-20 20:03 | XMS REPORT | Summary of Care ---
:1970 Author Organization [facility] - Health Address [address] [place] [id number] Care Team Providers Name Role Phone Selvin Gallardo MD Primary Care Provider Reason for Visit Reason Comments Other foot infection Auth/Cert Status Reason Specialty Diagnoses / Referred By Referred To Procedures Contact Contact Emergency Medicine [facility] Em ergency Dept [address] [place] [address] Fax: Encounter Details Date Type Department Care Team Description 09/25/2019 Emergency ADC-Emergency Paula Gannon Staph inf ection Department [employer] [employer] (Primary Dx) [address] [place] [address] [id number] [place], [place] [id number] Allergies No Known Allergiesdocumented as of this encounter (statuses as of 09/25/2019) Medications Medication Sig Dispensed Refills Start Date End Date Status vitamin B-12 (VITAMIN Take 1 tablet by 0 07/06/2017 Active B-12) 1,000 mcg mouth daily. tablet aspirin (ADULT LOW Take 81 mg by 0 Active DOSE ASPIRIN) 81 mg mouth daily. EC tablet losartan 100 mg Take 1 tablet by 90 tablet 3 05/16/2019 Active tabletIndications: mouth daily. Essential hypertension mupirocin 2 % Apply to 22 g 1 08/15/2019 Activ e ointmentIndications: area(s) 3 Cellulitis of left (three) times ankle, Impetigo daily. sulfamethoxazole-trim Take 2 tablets 40 tablet 0 09/25/2019 Active ethoprim 400-80 mg by mouth 2 (two) per times daily for tabletIndications: 10 days. Staph infection cephALEXin (KEFLEX) Take 2 capsules 40 capsule 0 09/25/2019 Active 500 mg by mouth 2 (two) capsuleIndications: times daily for Staph infection 10 days. mupirocin 2 % Apply to 22 g 0 09/25/2019 Activ e ointmentIndications: area(s) 3 Staph infection (three) times daily. sodium hypochlorite Apply to 1 Bottle 0 09/25/2019 Active 0.5% 0.5 % Soln 50 area(s) at mL, water for bedtime. irrigation Soln 950 mLIndications: Staph infection documented as of this encounter (statuses as of 09/25/2019) Active Problems Problem Noted Date Increased prostate specific antigen (PSA) velocity 08/2019 Macrocytosis 05/18/2019 B12 deficiency 07/06/2017 Leukopenia 06/04/2017 Abnormal liver function test 06/04/2017 Obesity Seasonal allergies Hypertension Overview: Diagnosed around 2015 Abnormal EKG documented as of this encounter (statuses as of 09/25/2019) Immunizations Name Administration Dates Next Due Td 09/25/2019 documented as of this encounter Social History Tobacco Use Types Packs/Day Years Used Date Never Smoker Smokeless Tobacco: Former User Alcohol Use Drinks/Week oz/Week Comments Yes 21 Cans of beer 21.0 Sex Assigned at Date Recorded Not on file Job Start Date Occupation Industry Not on file Not on file Not on file Travel History Travel Start Travel End No recent travel history available. COVID-19 Exposure Response Date Recorded In the last month, have you been in contact with No / Unsure 09/25/2019 11:58 AM CDT someone who was confirmed or suspected to have Coronavirus / COVID-19? documented as of this encounter Last Filed Vital Signs Vital Sign Reading Time Taken Comments Blood Pressure 137/79 09/25/2019 12:30 PM CDT Pulse 66 09/25/2019 12:30 PM CDT Temperature 37.2 C (98.9 F) 09/25/2019 11:51 AM CDT Respiratory Rate 18 09/25/2019 12:30 PM CDT Oxygen Saturation 99% 09/25/2019 12:30 PM CDT Inhaled Oxygen Concentration - - Weight 172.4 kg (380 lb) 09/25/2019 11:51 AM CDT Height 193 cm (6' 4") 09/25/2019 11:51 AM CDT Body Mass Index 46.26 09/25/2019 11:51 AM CDT documented in this encounter Discharge Instructions Paula Vences NP - 09/25/2019Diagnosis: Staph skin infection Tetanus-diptheria immunization Elevate legs as much as possible Bath with antibacterial soap daily Only wear 100% cotton socks Prescriptions for Bactrim , keflex and bactroban ointment sent to your pharmacy Prescription for Dakin's solution provided Apply at bedtime and allow to dry Follow up with your PCP in 7-10 days for re-check AttachmentsThe following attachments cannot be sent through Care Everywhere. Staph Skin Infection, Possible MRSA (Romanian)documented in this encounter Plan of Treatment Date Type Specialty Care Team Description 10/28/2019 Office Visit Urology Bethel Means MD [address] [place] [address]. [place] [address] [phone] 11/14/2019 Office Visit Family Medicine Alma Delia Gallardo MD [address] [place], [place] [phone] Health Maintenance Due Date Last Done Comments Depression Screening 11/24/2019 11/23/2018 DTaP,Tdap,and Td Vaccines (1 - 05/16/2020 P ostponed from 1981 Tdap) (Refused) INFLUENZA VACCINE (Season Ended) 2020 Postponed from 12/13/2019 (Refused) PNEUMOCOCCAL 0-64 YEARS COMBINED Aged Out No longer eligible based on SERIES patient's age to complete this topic documented as of this encounter Procedures Procedure Name Priority Date/Time Associated Diagnosis Comme nts NOTICE OF PRIVACY Routine 09/25/2019 11:44 AM CDT PRACTICES documented in this encounter Results Not on filedocumented in this encounter Visit Diagnoses Diagnosis Staph infection - Primary Unspecified staphylococcus infection in conditions classified elsewhere and of unspecified site documented in this encounter Administered Medications Medication Order MAR Action Action Date Dose Rate Site tetanus-diphtheria Given 09/25/2019 12:11 PM 0.5 mL Right Deltoid-IM toxoids (TDVAX) 2-2 Lf CDT unit/0.5 mL injection 0.5 mL 0.5 mL, Intramuscular, ONCE, 1 dose, 09/25/19 at 1315, Routine documented in this encounter Insurance Payer Benefit Plan / Subscriber ID Effective Dates Phone Addre ss Type Group [facility] [id number] 2017-Bianca PPO/POS PPO/POS t documented as of this encounter
--- OUTSIDE RECORDS SUMMARY | 2019-10-20 20:03 | XMS REPORT | Summary of Care ---
:1970 Author Organization [facility] - Health Address [address] [place] [address] Care Team Providers Name Role Phone Selvin Gallardo MD Primary Care Provider Encounter Details Date Type Department Care Team Description 09/25/2019 Orders Only [facility] Doctor Unassigned, No [address] [facility] [place] [address] [address] [place] [address] Allergies No Known Allergiesdocumented as of this [...] Essential hypertension mupirocin 2 % Apply to area(s) 22 [...] of this encounter (statuses as of 09/25/2019) Social History Tobacco Use Types Packs/Day Years [...] 10/28/2019 Office Visit Urology Bethel Means MD [address] [place], [place] [address]. [place], [place] [phone] 11/14/2019 Office Visit Family Medicine Alma Delia Gallardo MD [address] [place] [phone] Health Maintenance Due Date Last [...] Name Priority Date/Time Associated Diagnosis Comme nts CONSENT/REFUSAL FOR Routine 09/25/2019 11:44 AM CDT DIAGNOSIS AND TREATMENT documented in this encounter Results Not on filedocumented in this encounter Insurance Payer Benefit Plan / Subscriber ID Effective Dates Phone Addre ss Type Group [facility] [id number] 2017-Presen PPO/POS PPO/POS t documented as of this encounter
--- OUTSIDE RECORDS SUMMARY | 2019-10-20 20:03 | XMS REPORT | Summary of Care ---
:1970 Author Organization [facility] Address [address] [place] [address] Care Team Providers Name Role Phone Selvin Gallardo MD Primary Care Provider Reason for Referral (EMANI) Status Reason Specialty Diagnoses / Referred By Referred To Procedures Contact Contact New Request Dermatology Diagnoses Cellulitis of both feet Selvin Gallardo Procedures CONSULT/REFERRAL DERMATOLOGY MD Giacomo [address] [place] [address] [place] [address] Reason for Visit Reason Comments Rash Follow up on Rash on Left Fo ot Encounter Details Date Type Department Care Team Description 10/04/2019 Office Visit [facility] Pediatric Selvin Gallardo ellulitis of both feet (Primary Dx); and Adult Primary MD Giacomo Pain in both feet; [address] Bilateral lower extremity edema; [address] [place], [place] Essential hypertension; Drive, [address] [phone] Localized rash; [place], [place] [phone] Neuropathy of both feet [address] [phone] Allergies No Known Allergiesdocumented as of this encounter (statuses as of 10/07/2019) Medications Medication Sig Dispensed Refills Start End Status Date Date vitamin B-12 (VITAMIN Take 1 tablet 0 07/07/19 Active B-12) 1,000 mcg tablet by mouth 18 daily. aspirin (ADULT LOW DOSE Take 81 mg by 0 Active ASPIRIN) 81 mg EC mouth daily. tablet losartan 100 mg Take 1 tablet 90 tablet 3 05/16/19 Active tabletIndications: by mouth 20 Essential hypertension daily. mupirocin 2 % Apply to 22 g 0 09/25/19 Active ointmentIndications: area(s) 3 20 Staph infection (three) times daily. sodium hypochlorite Apply to 1 Bottle 0 09/25/19 Active 0.5% 0.5 % Soln 50 mL, area(s) at 20 water for irrigation bedtime. Soln 950 mLIndications: Staph infection clindamycin 300 mg Take 1 40 capsule 0 10/04/19 Active capsuleIndications: capsule by 20 020 Cellulitis of both feet mouth 4 (four) times daily for 10 days. Take a probiotic daily while on this medication. gabapentin 100 mg Take 1-3 90 capsule 0 10/04/19 A ctive capsuleIndications: capsules by 20 Cellulitis of both mouth at feet, Pain in both feet bedtime. cephALEXin 500 mg Take 1 40 capsule 0 10/04/19 A ctive capsuleIndications: capsule by 20 020 Cellulitis of both feet mouth 4 (four) times daily for 10 days. hydroCHLOROthiazide Take 1 tablet 30 tablet 5 10/04/19 Active 12.5 mg by mouth 20 tabletIndications: daily. Bilateral lower extremity edema mupirocin 2 % Apply to 22 g 1 08/15/19 Discon tinued ointmentIndications: area(s) 3 20 020 (Duplicate) Cellulitis of left (three) times ankle, Impetigo daily. sulfamethoxazole-trimet Take 2 40 tablet 0 09/25/19 Discontinued hoprim 400-80 mg per tablets by 20 020 tabletIndications: mouth 2 (two) Staph infection times daily for 10 days. cephALEXin (KEFLEX) 500 Take 2 40 capsule 0 09/25/1910/03 Discontinued mg capsuleIndications: capsules by 20 020 (Duplicate) Staph infection mouth 2 (two) times daily for 10 days. documented as of this encounter (statuses as of 10/07/2019) Active Problems Problem Noted Date Neuropathy of both feet 10/07/2019 Increased prostate specific antigen (PSA) velocity 08/2019 Macrocytosis 05/18/2019 B12 deficiency 07/06/2017 Leukopenia 06/04/2017 Abnormal liver function test 06/04/2017 Obesity Seasonal allergies Hypertension Overview: Diagnosed around 2015 Abnormal EKG documented as of this encounter (statuses as of 10/07/2019) Immunizations Name Administration Dates Next Due Td [...] been in contact with No / Unsure 10/04/2019 3:41 PM CDT someone who was confirmed or suspected to have Coronavirus / COVID-19? documented as of this encounter Last Filed Vital Signs Vital Sign Reading Time Taken Comments Blood Pressure 151/80 10/04/2019 3:46 PM CDT Pulse 66 10/04/2019 3:46 PM CDT Temperature 36.7 C (98 F) 10/04/2019 3:46 PM CDT Respiratory Rate - - Oxygen Saturation - - Inhaled Oxygen Concentration - - Weight 172.8 kg (381 lb) 10/04/2019 3:46 PM CDT Height 193 cm (6' 4") 10/04/2019 3:46 PM CDT Body Mass Index 46.38 10/04/2019 3:46 PM CDT documented in this encounter Patient Instructions Patient InstructionsSelvin Gallardo MD - 10/04/2019 4:15 PM CDT Patient Education Discharge Instructions for Cellulitis You have been diagnosed with cellulitis. This is an infection in the deepest layer of the skin and tissue beneath the skin. In some cases, the infection also affects the muscle. Cellulitis is caused bybacteria. The bacteria canenter the body through broken skin. This can happen with a cut, scratch,animal bite, or an insect bite that has been scratched. You may have been treated in the hospital with antibiotics and fluids. You will likely be given a prescription for antibiotics to take at home. This sheet will help you take care of yourself at home. Home care When you are home: Take the prescribed antibiotic medicine you are given as directed until it is gone. Take it even if you feel better. It treats the infection and stops it from returning. Not taking all the medicine can make future infections hard to treat. Keep the infected area clean. When possible, raise the infected area above the level of your heart. This helps keep swelling down. Talk with your healthcare provider if you are in pain. Ask what kind of qviu-rxa-nkpqpap medicineyou can take for pain. Apply clean bandages as advised. Take your temperature once a day for a week. Wash your hands often to prevent spreading the infection. In the future, wash your hands before and after you touch cuts, scratches, or bandages. This will help prevent infection. When to call your healthcare provider Call your healthcare provider right away if you have any of the following: Trouble or pain when moving the joints above or below the infected area Discharge or pus draining from the area [id number] (38C) or higher, or as directed by your healthcare provider Pain that gets worse in or around the infected Redness that gets worse in or around the infected area,particularly if the area of redness expands to a wider area Shaking chills Swelling of the infected area Vomiting [employer] last reviewed this educational content on 02/11/201919994717-4278 [employer]. [address] [place] [address]. All rights reserved. This information is not intended as a substitute for professional medical care. Always follow your healthcare professional's instructions. documented in this encounter Progress Notes Selvin Gallardo MD - 10/04/2019 4:15 PM CDT Cc: Chief Complaint Patient presents with Rash Follow up on Rash on Left Foot HPI Kleber Cornejo is a 49 year old male who presents today for a recurrent rash of his feet. He c/o discomfort of his feet that keeps him from resting at night thus he requests something for pain. Rash Location: Foot Foot rash location: Top of L foot and top of R foot Quality: painful, redness, swelling and weeping Pain details: Quality: Sore, tingling, burning and stinging Severity: Moderate Onset quality: Gradual Severity: Moderate Onset quality: Gradual Duration: 1 month Progression: Waxing and waning Chronicity: Recurrent Context: not exposure to similar rash, not insect bite/sting and not plant contact Relieved by: He has had two courses of oral antibiotics that help when he is taking them but his symtoms rebound as soon as he stops the antibiotics. Associated symptoms: no abdominal pain, no diarrhea, no fatigue, no fever, no headaches, no hoarse voice, no induration, no joint pain, no myalgias, no nausea, no periorbital edema, no shortness of breath, no sore throat, no throat swelling, no tongue swelling, no URI, not vomiting and not wheezing Associated symptoms comment: + swelling of his legs and feet (chronic issue) Allergies Kleber has No Known Allergies. Medications Outpatient Medications Prior to Visit Medication Sig Dispense Refill mupirocin 2 % ointment Apply to area(s) 3 (three) times daily. 22 g 0 sodium hypochlorite 0.5% 0.5 % Soln 50 mL, water for irrigation Soln 950 mL Apply to area(s) atbedtime. 1 Bottle 0 cephALEXin (KEFLEX) 500 mg capsule Take 2 capsules by mouth 2 (two) times daily for 10 days. 40 capsule 0 sulfamethoxazole-trimethoprim 400-80 mg per tablet Take 2 tablets by mouth 2 (two) times daily for 10 days. 40 tablet 0 mupirocin 2 % ointment Apply to area(s) 3 (three) times daily. 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 Family History Problem Relation Age of Onset COPD (chronic obstructive pulmonary disease) Mother Thyroid Sister Review of Systems Constitutional: Negative. Negative for fatigue and fever. HENT: Negative. Negative for hoarse voice and sore throat. Eyes: Negative. Respiratory: Negative. Negative for shortness of breath and wheezing. Cardiovascular: Positive for leg swelling. Gastrointestinal: Negative. Negative for abdominal pain, diarrhea, nausea and vomiting. Genitourinary: Negative. Musculoskeletal: Negative. Negative for arthralgias and myalgias. Skin: Positive for rash. Neurological: Negative. Negative for headaches. Psychiatric/Behavioral: Negative. Endocrine: Endocrine negative Vital Signs BP (!) 151/80 (BP Location: Right arm, Patient Position: Sitting, BP CUFF SIZE: Adult Large) | Pulse 66 | Temp 36.7 C (98 F) (Oral) | Ht 6' 4" (1.93 m) | Wt 381 lb (172.8 kg) | BMI 46.38 kg/m Physical Exam Constitutional: He is oriented to person, place, and time. He appears well- developed and well-nourished. No distress. HENT: Head: Normocephalic. Mouth/Throat: Mucous membranes are normal. Eyes: Pupils are equal, round, and reactive to light. Conjunctivae are normal. No scleral icterus. Neck: Neck supple. No thyromegaly present. Cardiovascular: Normal rate, regular rhythm, normal heart sounds and intact distal pulses. Exam reveals no gallop and no friction rub. No murmur heard. Pulmonary/Chest: Effort normal and breath sounds normal. He has no wheezes. He has no rales. Abdominal: Soft. Bowel sounds are normal. He exhibits no distension and no mass. There is no tenderness. Musculoskeletal: He exhibits edema (1+ BLE). Lymphadenopathy: He has no cervical adenopathy. Neurological: He is alert and oriented to person, place, and time. Skin: Skin is warm and dry. Rash (papulo-pustular rash on the anterior surface of b/l ankles) noted.No pallor. Psychiatric: He has a normal mood and affect. His behavior is normal. Nursing note and vitals reviewed. LABS: CBC CMP WBC (10*3/L) Date Value [...] 05/16/2019 59 34 - 122 U/L Final Assessment/Plan Diagnoses and all orders for this visit: Cellulitis of both feet, recurrent Antibiotic treatment is warranted given the exam findings. The patient was told to be sure to complete the full antibiotic course. I also recommended the following: Keep the area clean and dry. Antibiotic ointment is not necessary unless there is an open wound associated with the cellulitis. Elevate the area above heart level to help reduce swelling and to hasten the healing process. Wash handsregularly and avoid sharing personal hygiene items like towels to help prevent spread of certain bacterial infections (such as MRSA and MSSA) to others. Strong ER precautions were given for worsening symptoms. If recurrence of the rash continues, I recommended evaluation and management by a mechanical integrity specialist and a referral has been initiated. - CONSULT/REFERRAL DERMATOLOGY - clindamycin 300 mg capsule; Take 1 capsule by mouth 4 (four) times daily for 10 days. Take a probiotic daily while on this medication. - cephALEXin 500 mg capsule; Take 1 capsule by mouth 4 (four) times daily for 10 days. Pain in both feet, Neuropathy of both feet Likely related to peripheral neuropathy due to his B12 deficiency so I stressed the importance of compliance with his B12 supplement. Start gabapentin as noted and will titrate if needed. Potential side effects of this medication were discussed. - gabapentin 100 mg capsule; Take 1-3 capsules by mouth at bedtime. Bilateral lower extremity edema The patient was counseled to elevate the legs whenever possible, get enough hours of recumbent sleep, follow a low sodium diet, and consider compression hose. Check labs as noted. Venous duplex of the lower extremities was already performed during a recent outside facility ER visit. Add HCTZ as noted. - hydroCHLOROthiazide 12.5 mg tablet; Take 1 tablet by mouth daily. Uncontrolled essential hypertension The pathophysiology of HTN was reviewed with the patient. The patient's blood pressure goal is <130/<80 and the blood pressure is uncontrolled. Given the blood pressure has been repeatedly >130/80, adjustment of his antihypertensive pharmacotherapy is warranted. Various antihypertensive me dications were reviewed with the patient and the decision was made to add HCTZ as noted below. I recommended a low sodium diet/DASH diet along with exercise as part of a heart healthy lifestyle. The patient was instructed to self monitor his blood pressure once-twice daily varying the times when it is checked and to bring the record of readings to each office visit. The patient should follow-up sooner if the blood pressure is trending >/=130/80. An EKG should be done q1-3 years for cardiac surveillance. If not already followed by Cardiology, the patient should see a Consumer Marketing Manager for consultation if there is a family history of heart disease in a 1st degree relative, if any cardiovascular symptomatology develops, and for HTN that is resistant to treatment. I recommended immediate ER evaluation for acute symptoms such as chest pain, SOB, syncope, etc. The patient was warned about the potential consequences of uncontrolled HTN including heart disease, renal failure, stroke, etc. A BMP ch jerzy will be done next visit. - hydroCHLOROthiazide 12.5 mg tablet; Take 1 tablet by mouth [...] If applicable, the [facility] database was accessed to review any controlled substance prescription claims data. If the patient is taking prescribed medications, the [employer] prescription claims data in [place] was reviewed to assess patient compliance with the medication treatment plan. COVID-19 precautions given including frequent handwashing, social distancing, cleaning and disinfecting, indications for testing, etc. Follow-up: Return in about 1 month (around 11/03/2019) for HTN f/u and BMP check. Follow-up sooner if any problems or concerns. Scribe Attestation I, Kaye Dyson am scribing for, and in the presence of, Selvin Gallardo MD who performed the services described here-in. Kaye Dyson, October 04, 2019, 3:51 PM Physician Attestation I, Selvin Gallardo MD, personally performed the services described in this documentation , as scribed by, Kaye Dyson in my presence and it is both accurate and complete. Selvin Gallardo MD October 04, 2019, 3:51 PM documented in this encounter Plan of Treatment Date Type Specialty Care Team Description 10/25/2019 Office Visit Dermatology Silvio Cline MD [address] [place] [address] [phone] 10/28/2019 Office Visit Urology Bethel Means MD [address] [place] [address] [phone] 11/14/2019 Office Visit Family Medicine Alma Delia Gallardo MD [address] [place], [place] [phone] Health Maintenance Due Date Last Done Comments DTaP,Tdap,and Td Vaccines (1 - 1981 09/25/2019 Tdap) INFLUENZA VACCINE (Season Ended) 2020 Postponed from 12/13/2019 (Refused) Depression Screening 10/03/2020 10/04/2019 PNEUMOCOCCAL 0-64 YEARS COMBINED Aged Out No longer eligible based on SERIES patient's age to complete this topic documented as of this encounter Results Not on filedocumented in this encounter Visit Diagnoses Diagnosis Cellulitis of both feet - Primary Pain in both feet Pain in limb Bilateral lower extremity edema Edema Essential hypertension Unspecified essential hypertension Localized rash Rash and other nonspecific skin eruption Neuropathy of both feet Mononeuritis of lower limb, unspecified documented in this encounter Insurance Payer Benefit Plan / Subscriber ID Effective Dates Phone Addre ss Type Group [facility] [id number] 2017-Presen PPO/POS PPO/POS t documented as of this encounter
--- OUTSIDE RECORDS SUMMARY | 2019-10-20 20:03 | XMS REPORT | Summary of Care ---
:1970 Author Organization [facility] Address [address] [place] [address] Care Team Providers Name Role Phone Selvin Gallardo MD Primary Care Provider Reason for Referral (EMANI) Status Reason Specialty Diagnoses / Referred By Referred To Procedures Contact Contact New Request Dermatology Diagnoses Cellulitis of both feet Selvin Gallardo Procedures CONSULT/REFERRAL DERMATOLOGY MD Giacomo [address] [place] [address] [place] [phone] Reason for Visit Reason Comments Rash Follow up on Rash on Left Fo ot Encounter Details Date Type Department Care Team Description 10/04/2019 Office Visit [facility] Pediatric Selvin Gallardo ellulitis of both feet (Primary Dx); and Adult Primary MD Giacomo Pain in both feet; [address] Bilateral lower extremity edema; [address] [place], [place] Essential hypertension; Drive, [address] [phone] Localized rash; [place], [place] [phone] Neuropathy of both feet [address] [phone] Allergies No Known Allergiesdocumented as of this [...] are in pain. Ask what kind of smzy-qnu-vkzgaeu medicineyou can take for pain. Apply clean [...] Discharge or pus draining from the area [id number] (38C) or higher, or as directed by your healthcare provider Pain that gets worse in or around the infected Redness that gets worse in or around the infected area,particularly if the area of redness expands to a wider area Shaking chills Swelling of the infected area Vomiting Gravie last reviewed this educational content on 02/11/201919993678-8369 [employer]. [address] [place] [address]. All rights reserved. 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 Family History Problem Relation Age of [...] I recommended evaluation and management by a therapeutic specialist and a referral has been initiated. [...] by Cardiology, the patient should see a Production Boring Machine Operator for consultation if there is a family [...] at a future visit. If applicable, the [facility] database was accessed to review any controlled substance prescription claims data. If the patient is taking prescribed medications, the [employer] prescription claims data in [employer] was reviewed to assess patient compliance with [...] 10/25/2019 Office Visit Dermatology Silvio Cline MD [address] [place] [address] [phone] 10/28/2019 Office Visit Urology Bethel Means MD [address] [place] [address] [phone] 11/14/2019 Office Visit Family Medicine Alma Delia Gallardo MD [address] [place], [place] [phone] Health Maintenance Due Date Last Done [...] Effective Dates Phone Addre ss Type Group [facility] [id number] 2017-Presen PPO/POS PPO/POS t documented as of this encounter
--- OUTSIDE RECORDS SUMMARY | 2019-10-20 20:04 | XMS REPORT | Summary of Care ---
:1970 Author Organization [facility] Address [address] [place] [address] Care Team Providers Name Role Phone Selvin Gallardo MD Primary Care Provider Encounter Details Date Type Department Care Team Description 10/20/2019 Orders Only [facility] Doctor Unassigned, No [address] [facility] [place] [address] [address] [place] [address] Allergies No Known Allergiesdocumented as of this encounter (statuses as of 10/20/2019) Medications Medication Sig Dispensed Refills Start Date End Date Status vitamin B-12 (VITAMIN Take 1 tablet 0 07/06/2017 Active B-12) 1,000 mcg tablet by mouth daily. aspirin (ADULT LOW DOSE Take 81 mg by 0 Active ASPIRIN) 81 mg EC tablet mouth daily. losartan 100 mg Take 1 tablet 90 tablet 3 05/16/2019 Active tabletIndications: by mouth Essential hypertension daily. mupirocin 2 % Apply to 22 g 0 09/25/2019 Activ e ointmentIndications: area(s) 3 Staph infection (three) times daily. sodium hypochlorite 0.5% Apply to 1 Bottle 0 09/25/2019 Active 0.5 % Soln 50 mL, water area(s) at for irrigation Soln 950 bedtime. mLIndications: Staph infection gabapentin 100 mg Take 1-3 90 capsule 0 10/04/2019 Active capsuleIndications: capsules by Cellulitis of both feet, mouth at Pain in both feet bedtime. hydroCHLOROthiazide 12.5 Take 1 tablet 30 tablet 5 10/04/2019 Active mg tabletIndications: by mouth Bilateral lower extremity daily. edema documented as of this encounter (statuses as of 10/20/2019) Active Problems Problem Noted Date Neuropathy of both feet 10/07/2019 Increased prostate specific antigen (PSA) velocity 08/2019 Macrocytosis 05/18/2019 B12 deficiency 07/06/2017 Leukopenia 06/04/2017 Abnormal liver function test 06/04/2017 Obesity Seasonal allergies Hypertension Overview: Diagnosed around 2015 Abnormal EKG documented as of this encounter (statuses as of 10/20/2019) Immunizations Name Administration Dates Next Due Td [...] 10/25/2019 Office Visit Dermatology Silvio Cline MD [address] [place] [address] [phone] 10/28/2019 Office Visit Urology Bethel Means MD [address] [place] [address] [phone] 11/14/2019 Office Visit Family Medicine Al[facility] Delia Gallardo MD [address] [place] [phone] Health Maintenance Due Date Last Done Comments DTaP,Tdap,and Td Vaccines (1 - 1981 09/25/2019 Tdap) INFLUENZA VACCINE (#1) 2020 Postponed from 12/13/2019 (Refused) Depression Screening 10/03/2020 10/04/2019 PNEUMOCOCCAL 0-64 YEARS COMBINED Aged Out No longer eligible based on SERIES patient's age to complete this topic documented as of this encounter Procedures Procedure Name Priority Date/Time Associated Diagnosis Comme nts EXTERNAL PROVIDER Routine 10/20/2019 12:01 AM CDT RECORDS documented in this encounter Results Not on filedocumented in this encounter Insurance Payer Benefit Plan / Subscriber ID Effective Dates Phone Addre ss Type Group [facility] [id number] 2017-Presen PPO/POS PPO/POS t documented as of this encounter
--- NOTE | 2019-10-20 21:56 | ER ---
Nurse's Notes [facility] Name: Kleber Cornejo Jr Age: 49 yrs Sex: Male : 1970 Arrival Date: 10/20/2019 Time: 15:49 Bed Waiting Private MD: Diagnosis: Presentation: 10/19 16:34 Chief complaint: Chief complaint: Patient states: 3rd digit of R foot was bitten by a ca1 spider 3 days ago. Reports pain, swelling, redness and a blister on. Coronavirus screen: Proceed with normal triage. Patient denies a cough. Patient denies shortness of breath or difficulty breathing. Patient denies measured and/or subjective temperature greater than 100.4F prior to today's visit. Patient denies travel on a cruise ship or to a country the [facility] currently lists as an affected area. Patient denies contact with known and/or suspected case of COVID-19. Ebola Screen: Patient negative for fever greater than or equal to 101.5 degrees Fahrenheit, and additional compatible Ebola Virus Disease symptoms Patient denies exposure to infectious person. Patient denies travel to an Ebola-affected area in the 21 days before illness onset. No symptoms or risks identified at this time. Initial Sepsis Screen: Does the patient meet any 2 criteria? No. Patient's initial sepsis screen is negative. Does the patient have a suspected source of infection? No. Patient's initial sepsis screen is negative. Risk Assessment: Do you want to hurt yourself or someone else? Patient reports no desire to harm self or others. Onset of symptoms was October 20, 2019. 16:34 Method Of Arrival: Ambulatory ca1 16:34 Acuity: BRANDON 4 ca1 Historical: - Allergies: 16:37 MOLDS; ca1 - Home Meds: 16:37 aspirin 81 mg Oral TbEC 1 tab once daily [Active]; losartan 100 mg Oral tab 1 tab once ca1 daily [Active]; Vitamin B-12 1,000 mcg Oral tab [Active]; - PMHx: 16:37 Hypertension; ca1 - PSHx: 16:37 Hernia repair; Tonsillectomy; ca1 - Immunization history:: Adult Immunizations up to date, Last tetanus immunization: up to date. - Social history:: Smoking status: Patient denies any tobacco usage or history of. Vital Signs: 16:34 BP 147 / 89; Pulse 63; Resp 15 S; Temp 98.3(TE); Pulse Ox 100% on R/A; Weight 170.1 kg ca1 (R); Height 6 ft. 4 in. (193.04 cm) (R); 16:34 Body Mass Index 45.65 (170.10 kg, 193.04 cm) ca1 ED Course: 15:49 Patient arrived in ED. mr 16:36 Triage completed. ca1 16:37 Arm band placed on right wrist. ca1 16:48 Helena [facility] F[facility]-C [facility] kb 16:48 Marco Antonio Marques MD is Attending Physician. kb Administered Medications: No medications were administered Outcome: 21:55 Patient left the ED. dm5 Signatures: Helena Santos FNP-C FNP-Ckb Markwardt, Deana, RN RN dm5 Sharon Hopkins mr Hillary Singh RN RN ca1
[2019-10-20 22:00] VITALS: BP 147/89; TEMP 98.3; O2SAT 100
== END 2019-10-20 21:55 | disposition left against medical advice (07) ==
LOC: ER 15:46
DX: S90.861A Insect bite (nonvenomous), right foot, initial encounter (principal); Z53.21 Procedure and treatment not carried out due to patient leaving prior to being seen by health care provider
CPT/HCPCS: 99281

== ENCOUNTER 2019-12-09 09:26 | Emergency (ER) | payer OTHER ==
--- OUTSIDE RECORDS SUMMARY | 2019-12-09 09:27 | XMS REPORT | Continuity of Care Document ---
:1970 Author Organization [facility] t Address [address] [place] [address] Care Team Providers Name Role Phone Clary DE OLIVEIRA Attending Clinician Giacomo Gallardo MD Attending Clinician Problems This patient has no known problems. Allergies, Adverse Reactions, Alerts This patient has no known allergies or adverse reactions. Medications This patient has no known medications. Procedures This patient has no known procedures. Encounters Start End Encounter Admission Attending Care Care Encounter Source Date/Time Date/Time Type Type Clinicians Facility Department ID 2019-11-30 2019-11-30 Telephone SALVADOR Means [id number] 00:00:00 00:00:00 [facility] [id number] Cancer [id number] [facility] [id number] [facility] 204 2019-11-28 2019-11-28 Office SALVADOR Gallardo [id number] 15:17:50 16:42:36 Visit Selvin Lee [id number] [place] [id number] [facility] [phone] nal 044 Building Results This patient has no known results.
--- OUTSIDE RECORDS SUMMARY | 2019-12-09 09:29 | XMS REPORT | Summary of Care ---
:1970 Author Organization [facility] Address [address] [place] [address] Care Team Providers Name Role Phone Selvin Gallardo MD Primary Care Provider Reason for Visit Reason Comments Rash (EMANI) Status Reason Specialty Diagnoses / Procedures Referred By Gissell shea Referred To Contact Closed Dermatology Diagnoses Cellulitis of both feet Selvin Gallardo Procedures CONSULT/REFERRAL DERMATOLOGY MD Giacomo [address] [place] [address] [place] [address] Phone: Encounter Details Date Type Department Care Team Description 10/25/2019 Office Visit [facility] Neha Hopper MD [address] [place] [address] Allergic contact Dermatology, [facility] Silvio Cline MD [address] [place] [address]. [place] [address] dermatitis, City unspecified trigger [address] [facility] (Primary D x[facility], [place] [address] Allergies No Known Allergiesdocumented as of this encounter (statuses as of 10/25/2019) Medications Medication Sig Dispensed Refills Start Date [...] by mouth Bilateral lower extremity daily. edema triamcinolone acetonide Apply to 454 g 2 10/25/2019 Active 0.1 % area(s) 2 ointmentIndications: (two) times Allergic contact daily. dermatitis, unspecified trigger documented as of this encounter (statuses as of 10/25/2019) Active Problems Problem Noted Date Neuropathy of both feet 10/07/2019 Increased prostate specific antigen (PSA) velocity 08/2019 Macrocytosis 05/18/2019 B12 deficiency 07/06/2017 Leukopenia 06/04/2017 Abnormal liver function test 06/04/2017 Obesity Seasonal allergies Hypertension Overview: Diagnosed around 2015 Abnormal EKG documented as of this encounter (statuses as of 10/25/2019) Immunizations Name Administration Dates Next Due Td [...] on filedocumented in this encounter Progress Notes Silvio Cline MD - 10/25/2019 11:00 AM CDT Kleber Cornejo is a 49 year old male Cc: rash HPI Kleber Cornejo is a 49 year old male who presents today for a rash on the bilateral lower legs and feet, present for 3 months that is pruritic but not painful. He has been treated with 2 course of antibiotics that have not helped any. Denies any fevers or chills. Histories Past Medical History: Diagnosis Date Abnormal EKG B12 deficiency 07/06/2017 Hypertension Diagnosed around 2016 Neuropathy of both feet 10/07/2019 Obesity Seasonal allergies (-) hx of skin cancer (-) family hx of skin cancer SH: lives in [place] Allergies No Known Allergies Medications Current Outpatient Medications on File Prior to Visit Medication Sig Dispense Refill gabapentin 100 mg capsule Take 1-3 capsules by mouth at bedtime. 90 capsule 0 hydroCHLOROthiazide 12.5 mg tablet Take 1 tablet by mouth daily. 30 tablet 5 mupirocin 2 % ointment Apply to area(s) 3 (three) times daily. 22 g 0 sodium hypochlorite 0.5% 0.5 % Soln 50 mL, water for irrigation Soln 950 mL Apply to area(s) atbedtime. 1 Bottle 0 losartan 100 mg tablet Take 1 tablet by mouth daily. 90 tablet 3 aspirin (ADULT LOW DOSE ASPIRIN) 81 mg EC tablet Take 81 mg by mouth daily. vitamin B-12 (VITAMIN B-12) 1,000 mcg tablet Take 1 tablet by mouth daily. No current facility-administered medications on file prior to visit. Review of Systems Constitutional: Pain (-) Skin: Itching (+), Rash (+), Growth (-), Color change (-) Heme: Bleeding (-) Physical Exam There were no vitals taken for this visit. General : No acute distress, awake, well developed, well nourished Psychiatric: Normal affect, mood, judgement, and thought content Neuro: Alert, oriented to person, place, situation RIGHT LEG: Positive LEFT LEG: Positive (-)=Negative,(+)=Positive Actinic Keratosis (A): erythematous scaling papules Franklin Hemaniogioma (CH): smooth red and purple papules Dermatitis Erythema (DE): mild to moderate erythema and scaling Dermatitis Lichenified (DL): lichenification and thickening Dermatitis Weeping (DW): weeping and excoriation Inflamed Seborrheic Keratosis (ISK): inflamed warty brown papules and plaques Millium (ML): Small white cystic papule Molluscum Contagiosum (MC): umbilicated papule Nevus Macular (NM): well circumscribed evenly pigmented macule Nevus Papular ([employer]): well circumscribed evenly pigmented papule Psoriasis Circumscribed (PC): well circumscribed erythema and scaling Psoriasis Diffuse (PD): diffuse patches of erythema and scaling Seborrheic Keratosis (SK): verrucous brown papules and plaques Scar (SR): cicatricial change Verruca Vulgarus (W): warty hyperkeratotic papule Assessment/Plan 1. Allergic contact dermatitis- bilateral feet and lower legs - Etiology and treatments discussed - Suspect shoe dermatitis, however, patient denies any new shoes - Start Triamcinolone ointment BID until resolved - Recommend monitoring for and avoiding potential triggers RTC 3-4 weeks, if not resolved Silvio Cline MD 10/25/2019 15:00 hiChantal burgos MA - 10/25/2019 11:00 AM CDT Kleber Cornejo is a 49 year old male who presents today for concerns of concerns of rash . Patient is alert, ambulatory, and oriented. Medications and allergies have been reviewed. Patient has no complaint of pain. Patient's preferred language is turkish. Vital signs deferred per provider. documented in this encounter Plan of Treatment Date Type Specialty Care Team Description 10/28/2019 Office Visit Urology Bethel Means MD [address] [place] [address]. [place], [place] [phone] 11/14/2019 Office Visit Family Medicine Alma Delia Gallardo MD [address] [place], [place] [address] [phone] Health Maintenance Due Date Last Done Comments DTaP,Tdap,and Td Vaccines (1 - 1981 09/25/2019 Tdap) INFLUENZA VACCINE (#1) 2020 Postponed from 12/13/2019 (Refused) Depression Screening 10/03/2020 10/04/2019 PNEUMOCOCCAL 0-64 YEARS COMBINED Aged Out No longer eligible based on SERIES patient's age to complete this topic documented as of this encounter Results Not on filedocumented in this encounter Visit Diagnoses Diagnosis Allergic contact dermatitis, unspecified trigger - Primary documented in this encounter Insurance Payer Benefit Plan / Subscriber ID Effective Dates Phone Addre ss Type Group [facility] [id number] 2017-Bianca PPO/POS PPO/POS t documented as of this encounter
--- OUTSIDE RECORDS SUMMARY | 2019-12-09 09:29 | XMS REPORT | Summary of Care ---
:1970 Author Organization [facility] - [address] [address] Care Team Providers Name Role Phone Selvin Gallardo MD Primary Care Provider Reason for Visit Reason Comments Follow-up Encounter Details Date Type Department Care Team Description 10/28/2019 Office Visit [facility]rology- Michelle Means MD Elevated prostate specific antigen (PSA) (Primary Dx); [address] Impotence of organic origin [address] [place] [place] [address] [address] [address] [place] [address] Allergies No Known Allergiesdocumented as of this encounter (statuses as of 10/28/2019) Medications Medication Sig Dispensed Refills Start Date [...] as of this encounter (statuses as of 10/28/2019) Active Problems Problem Noted Date Neuropathy of both feet 10/07/2019 Increased prostate specific antigen (PSA) velocity 08/2019 Macrocytosis 05/18/2019 B12 deficiency 07/06/2017 Leukopenia 06/04/2017 Abnormal liver function test 06/04/2017 Obesity Seasonal allergies Hypertension Overview: Diagnosed around 2015 Abnormal EKG documented as of this encounter (statuses as of 10/28/2019) Immunizations Name Administration Dates Next Due Td [...] been in contact with No / Unsure 10/28/2019 2:34 PM CDT someone who was confirmed or suspected to have Coronavirus / COVID-19? documented as of this encounter Last Filed Vital Signs Vital Sign Reading Time Taken Comments Blood Pressure 153/88 10/28/2019 2:33 PM CDT Pulse 99 10/28/2019 2:33 PM CDT Temperature 36.8 C (98.3 F) 10/28/2019 2:33 PM CDT Respiratory Rate 20 10/28/2019 2:33 PM CDT Oxygen Saturation 98% 10/28/2019 2:33 PM CDT Inhaled Oxygen Concentration - - Weight 179.4 kg (395 lb 9.6 oz) 10/28/2019 2:33 PM CDT Height 193 cm (6' 4") 10/28/2019 2:33 PM CDT Body Mass Index 48.15 10/28/2019 2:33 PM CDT documented in this encounter Progress Notes Bethel Means MD - 10/28/2019 3:00 PM CDT Urology Clinic Note / History and Physical Referred by: Dr Gallardo Chief Complaint: I was asked to give my opinion regarding Kleber Cornejo is a 49 year old male who presents with increased PSA velocity. History of Present Illness 10/28/2019: Kleber Cornejo is a 49 year old male increased PSA velocity. Here for follow up. No change in symptoms, recent UTI or hematuria. 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 Allergies No Known Allergies Review of Systems Constitutional: negative Eyes: negative Ears, nose, mouth, throat: negative Cardiovascular: negative Respiratory: negative Gastrointestinal: negative Genitourinary: (+) per HPI Musculoskeletal: negative Integumentary: negative Neurological: negative Psychiatric: negative Endocrine: negative Hematologic/Lymphatic: negative Allergic/Immunologic: negative, allergies listed above Physical Examination Blood pressure (!) 153/88, pulse 99, temperature 36.8 C (98.3 F), temperature source Oral, resp.rate 20, height 1.93 m (6' 4"), weight 179.4 kg (395 lb 9.6 oz), SpO2 98 %. Constitutional: healthy, no acute distress Eyes: normal external eye, conjunctiva and sclera normal Ears, nose, mouth, throat: normocephalic, moist mucous membranes Cardiovascular: regular rate and rhythm Respiratory: respirations unlabored on room air Gastrointestinal: soft, non-distended, no pain Genitourinary: uncircumcised, normal phallus, bilateral descended testes Rectal: prostate 50 g, benign Musculoskeletal: no clubbing, cyanosis or edema Skin: no rashes Neurologic: alert and oriented x3 Psychiatric: appropriate mood and affect Hematologic: no bruising Laboratory Per HPI Radiology No final results containing an impression from the past 30 days were found. Procedure Note None Assessment Kleebr Cornejo is a 49 year old male with PMHx HTN and no family of prostate cancer: 1. Increased PSA velocity from 0.8 in 2018 to 2.07 in 2020. Now normal 2. ED over the last year, now normal Plan - Repeat PSA 3 months , may consider MRI prostate with a plan for guided biopsy - RTC 3 months Bethel Means MD Bindu torres RN - 10/28/2019 3:00 PM CDTKleber Cornejo is a 49 year old male comes to clinic independent in ambulation for follow up elevated PSA. Pt comes alone . Pt in NAD w/ pain reported 0/10. Pt preferred language is Guinean. Pt. denies fall in last 12 months. Allergies and medications reviewed and updated. documented in this encounter Plan of Treatment Date Type Specialty Care Team Description 11/14/2019 Office Visit Family Medicine Alma Delia Gallardo MD [address] [place] [address] [phone] Name Type Priority Associated Diagnoses Date/Ti me TESTOSTERONE LAB Routine Impotence of organic origin 10/28/2019 3:31 PM CDT Name Type Priority Associated Diagnoses Order S chedule TESTOSTERONE LAB Routine Impotence of organic origin Expected: 10/28/2019, Expires: 10/27/2020 Health Maintenance Due Date Last Done Comments DTaP,Tdap,and Td Vaccines (1 - 1981 09/25/2019 Tdap) INFLUENZA VACCINE (#1) 2020 Postponed from 12/13/2019 (Refused) Depression Screening 10/03/2020 10/04/2019 PNEUMOCOCCAL 0-64 YEARS COMBINED Aged Out No longer eligible based on SERIES patient's age to complete this topic documented as of this encounter Results PROSTATIC SPECIFIC ANTIGEN (10/28/2019 3:31 PM CDT) Pathologist Sig nature PSA 0.89 <=4.00 ng/mL [facility] Specimen Blood Narrative Performed At Biotin has been reported to cause a negative [facility] bias, interpret results relative to patient's use of biotin. Performing Organization Address City/State/Zipcode Phone Number [facility] CLIA: [id number], [address] [place], [place] [address] documented in this encounter Visit Diagnoses Diagnosis Elevated prostate specific antigen (PSA) - Primary Impotence of organic origin documented in this encounter Insurance Payer Benefit Plan / Subscriber ID Effective Dates Phone Addre ss Type Group [facility] [id number] 2017-Presen PPO/POS PPO/POS t documented as of this encounter
--- OUTSIDE RECORDS SUMMARY | 2019-12-09 09:29 | XMS REPORT | Summary of Care ---
:1970 Author Organization [facility] Address [address] [place] [address] Care Team Providers Name Role Phone Selvin Gallardo MD Primary Care Provider Reason for Visit Reason Comments LAB WORK Auth/Cert Status Reason Specialty Diagnoses / Procedures Referred By Gissell shea Referred To Contact Phlebotomy Diagnoses Other senior living (current) drug therapy Essential (primary) hypertension Localized edema Encounter for therapeutic drug level monitoring Deficiency of other specified B group vitamins Adc Pob Lab Draw Encounter for lo ng-term (current) use of medications Z79.899 Essential hypertension I10 Bilateral lower extremity edema R60.0 Medication monitoring encounter Z51.81 B12 deficiency E53.8 Professional Procedures VITAMIN B12, LEVEL BASIC METABOLIC PANEL (NA, K, CL, CO2, GLUCOSE, BUN, CREATININE, CA) VITAMIN B12, LEVEL [[id number]] BMP Office Building [address] [place] [address] [address] , [address] [place] [address] Fax: Encounter Details Date Type Department Care Team Description 11/28/2019 Associate Engineer Visit [facility] Ezequiel Gallardo MD [address] [place] [address] [facility] [place] [address] Elevated prostate specific antigen (PSA) ; Professional Office Pob, Adc Lab Main Impotence of organic origin; Building Phlebotomy Encounte r for long-term (current) use of medications; Lab Medication monitoring encoun ter; Professional Office B12 defi ciency; Building Bilateral lower extremity ed anant; [address] [facility] Essential hypertension , [address] [place] [address] Allergies No Known Allergiesdocumented as of this encounter (statuses as of 11/28/2019) Medications Medication Sig Dispensed Refills Start Date [...] as of this encounter (statuses as of 11/28/2019) Active Problems Problem Noted Date Neuropathy of both feet 10/07/2019 Increased prostate specific antigen (PSA) velocity 08/2019 Macrocytosis 05/18/2019 B12 deficiency 07/06/2017 Leukopenia 06/04/2017 Abnormal liver function test 06/04/2017 Obesity Seasonal allergies Hypertension Overview: Diagnosed around 2016 Abnormal EKG documented as of this encounter (statuses as of 11/28/2019) Immunizations Name Administration Dates Next Due Td 09/25/2019 documented as of this encounter Social History Tobacco Use Types Packs/Day Years Used Date Never Smoker Smokeless Tobacco: Former User Alcohol Use Drinks/Week oz/Week Comments Not Currently 21 Cans of beer 21.0 Sex Assigned at Date Recorded Not on file COVID-19 Exposure Response Date Recorded In the last month, have you been in contact with No / Unsure 11/28/2019 3:17 PM CDT someone who was confirmed or suspected to have Coronavirus / COVID-19? documented as of this encounter Last Filed Vital Signs Not on filedocumented in this encounter Nursing Notes Ruchi Byrd - 11/28/2019 5:15 PM CDT Venipuncture collection performed by clean technique on the left forearm(s). Total of 1 attempts were made. Slight pressure and a bandage/dressing were applied to the site(s). The patient experienced no complications. The following specimens were processed according to instructions and sent to [facility] laboratories per lab order on 11/28/19: LT BLUE 3 SST RED LAV PPT DK GREEN (LiHep) DK GREEN (SodH) GARCÍA DK BLUE (K2) DK BLUE (S) ACD Blood Culture NIPT/NTD documented in this encounter Plan of Treatment Date Type Specialty Care Team Description 02/02/2020 Office Visit Urology Bethel Means MD [address] [place] [address]. [place], [place] [phone] 05/28/2020 Office Visit Family Medicine Alma Delia Gallardo MD [address] [place] [phone] Health Maintenance Due Date Last Done Comments DTaP,Tdap,and Td Vaccines (1 - 1989 09/25/2019 Tdap) INFLUENZA VACCINE (#1) 2019 Colorectal Cancer Screening 2020 Depression Screening 10/03/2020 10/04/2019 PNEUMOCOCCAL 0-64 YEARS COMBINED Aged Out No longer eligible based on SERIES patient's age to complete this topic documented as of this encounter Results Not on filedocumented in this encounter Visit Diagnoses Diagnosis Elevated prostate specific antigen (PSA) Impotence of organic origin Encounter for long-term (current) use of medications Encounter for long-term (current) use of other medications Medication monitoring encounter Encounter for therapeutic drug monitorin g B12 deficiency Other B-complex deficiencies Bilateral lower extremity edema Edema Essential hypertension Unspecified essential hypertension documented in this encounter Insurance Payer Benefit Plan / Subscriber ID Effective Dates Phone Addre ss Type Group [facility] [id number] 2017-Bianca PPO/POS PPO/POS t documented as of this encounter
--- OUTSIDE RECORDS SUMMARY | 2019-12-09 09:29 | XMS REPORT | Summary of Care ---
:1970 Author Organization [facility] - Health Address [address] [place] [id number] Care Team Providers Name Role Phone Selvin Gallardo MD Primary Care Provider Reason for Visit Reason Comments Results Encounter Details Date Type Department Care Team Description 10/31/2019 Telephone [facility] Cancer Benjie Means MD Results [facility] [place] [address] [facility]. [address] [place] [address] 2nd floor [phone] [place], [place] [phone] Allergies No Known Allergiesdocumented as of this encounter (statuses as of 10/31/2019) Medications Medication Sig Dispensed Refills Start Date [...] as of this encounter (statuses as of 10/31/2019) Active Problems Problem Noted Date Neuropathy of both feet 10/07/2019 Increased prostate specific antigen (PSA) velocity 08/2019 Macrocytosis 05/18/2019 B12 deficiency 07/06/2017 Leukopenia 06/04/2017 Abnormal liver function test 06/04/2017 Obesity Seasonal allergies Hypertension Overview: Diagnosed around 2015 Abnormal EKG documented as of this encounter (statuses as of 10/31/2019) Immunizations Name Administration Dates Next Due Td [...] Visit Family Medicine Alma Delia Gallardo MD [address] [place] [phone] 02/03/2020 Office Visit Urology Bethel Means MD [address] [place] [address]. [place], [place] [phone] Name Type Priority Associated Diagnoses Order S chedule TESTOSTERONE LAB Routine Impotence of organic Expecte d: 10/31/2019, origin Expires: 2020 LUTEINIZING HORMONE SERUM LAB Routine Impotence of or ganic Expected: 10/31/2019, origin Expires: 2020 Health Maintenance Due Date Last Done Comments DTaP,Tdap,and Td Vaccines (1 - 1981 09/25/2019 Tdap) INFLUENZA VACCINE (#1) 2020 Postponed from 12/13/2019 (Refused) Depression Screening 10/03/2020 10/04/2019 PNEUMOCOCCAL 0-64 YEARS COMBINED Aged Out No longer eligible based on SERIES patient's age to complete this topic documented as of this encounter Results Not on filedocumented in this encounter Visit Diagnoses Diagnosis Impotence of organic origin - Primary Elevated prostate specific antigen (PSA) documented in this encounter Insurance Payer Benefit Plan / Subscriber ID Effective Dates Phone Addre ss Type Group [facility] [id number] 2017-Presen PPO/POS PPO/POS t documented as of this encounter
--- OUTSIDE RECORDS SUMMARY | 2019-12-09 09:29 | XMS REPORT | Summary of Care ---
:1970 Author Organization [facility] Address [address] [place] [address] Care Team Providers Name Role Phone Selvin Gallardo MD Primary Care Provider Reason for Visit Reason Comments Rash (EMANI) Status Reason Specialty Diagnoses / Procedures Referred By Gissell shea Referred To Contact Closed Dermatology Diagnoses Cellulitis of both feet Selvin Gallardo Procedures CONSULT/REFERRAL DERMATOLOGY MD Giacomo [address] [place] [address] [place] [address] Phone: Encounter Details Date Type Department Care Team Description 10/25/2019 Office Visit [facility] Neha Hopper MD [address] [place] [address] Allergic contact Dermatology, [facility] Silvio Cline MD [address] [place] [address]. 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 Patient's preferred language is occitan. Vital signs deferred per provider. documented in this encounter Plan of Treatment Date Type Specialty Care Team Description 10/28/2019 Office Visit Urology Bethel Means MD [address] [place] [address]. [place], [place] [phone] 11/14/2019 Office Visit Family Medicine Alma Delia Gallardo MD [address] [place], [place] [phone] Health Maintenance Due Date Last Done [...] Effective Dates Phone Addre ss Type Group [facility] [id number] 2017-Bianca PPO/POS PPO/POS t documented as of this encounter
--- OUTSIDE RECORDS SUMMARY | 2019-12-09 09:29 | XMS REPORT | Summary of Care ---
:1970 Author Organization [facility] - [address] [address] Care Team Providers Name Role Phone Selvin Gallardo MD Primary Care Provider Reason for Visit Reason Comments Follow-up Encounter Details Date Type Department Care Team Description 10/28/[address] [facility] Urology- Michelle Means MD Elevated prostate specific antigen (PSA) (Primary Dx); [address] Impotence of organic origin [address] [place] [address] [address] [address] [place] [address] Allergies No Known Allergiesdocumented as [...] file Gets together: Not on file Attends jehovah's witness service: Not on file Active member of [...] days were found. Procedure Note None Assessment Kleber Cornejo is a 49 year [...] pain reported 0/10. Pt preferred language is Uruguayan. Pt. denies fall in last 12 months. Allergies and medications reviewed and updated. documented in this encounter Plan of Treatment Date Type Specialty Care Team Description 11/14/2019 Office Visit Family Medicine Alma Delia Gallardo MD [address] [place] [address] [phone] Name Type Priority Associated Diagnoses Date/Ti [...] Pathologist Sig nature PSA 0.89 <=4.00 ng/mL [facility] Specimen Blood Narrative Performed At Biotin has been reported to cause a negative [facility] bias, interpret results relative to patient's use of biotin. Performing Organization Address City/State/Zipcode Phone Number [facility] CLIA: [id number], [address] [place], [place] [address] documented in this encounter Visit Diagnoses Diagnosis Elevated prostate specific antigen (PSA) - Primary Impotence of organic origin documented in this encounter Insurance Payer Benefit Plan / Subscriber ID Effective Dates Phone Addre ss Type Group [facility] [id number] 2017-Presen PPO/POS PPO/POS t documented as of this encounter
--- OUTSIDE RECORDS SUMMARY | 2019-12-09 09:29 | XMS REPORT | Summary of Care ---
:1970 Author Organization [facility] - Health Address [address] [place] [address] Care Team Providers Name Role Phone Selvin Gallardo MD Primary Care Provider Encounter Details Date Type Department Care Team Description 10/28/2019 Orders Only [facility] Doctor Unassigned, No [address] [facility] [place] [address] [address] [place] [address] Allergies No Known Allergiesdocumented as of this [...] Date Type Specialty Care Team Description 10/28/2019 Wraparound Facilitator Visit Phlebotomy Bethel Means MD [address] [place] [phone] [facility] Main 11/14/2019 Office Visit Family Medicine Alma Delia Gallardo MD [address] [place] [phone] Health Maintenance Due Date Last Done Comments DTaP,Tdap,and Td Vaccines (1 - 1981 09/25/2019 Tdap) INFLUENZA VACCINE (#1) 2020 Postponed from 12/13/2019 (Refused) Depression Screening 10/03/2020 10/04/2019 PNEUMOCOCCAL 0-64 YEARS COMBINED Aged Out No longer eligible based on SERIES patient's age to complete this topic documented as of this encounter Procedures Procedure Name Priority Date/Time Associated Diagnosis Comme nts ASSIGNMENT OF BENEFITS Routine 10/28/2019 3:19 PM CDT documented in this encounter Results Not on filedocumented in this encounter Insurance Payer Benefit Plan / Subscriber ID Effective Dates Phone Addre ss Type Group [facility] [id number] 2017-Presen PPO/POS PPO/POS t documented as of this encounter
--- OUTSIDE RECORDS SUMMARY | 2019-12-09 09:29 | XMS REPORT | Summary of Care ---
:1970 Author Organization [facility] Address [address] [place] [address] Care Team Providers Name Role Phone Selvin Gallardo MD Primary Care Provider Reason for Visit Reason Comments LAB WORK Auth/Cert Status Reason Specialty Diagnoses / Procedures Referred By Gissell shea Referred To Contact Phlebotomy Diagnoses Impotence of organic origin Adc Pob Lab Draw Professional O ffice Building [address] [facility] , [address] [place] [address] Phone: Fax: Encounter Details Date Type Department Care Team Description 10/28/2019 Furnace Helper Visit [facility] Bethel Means MD [address] [place] [address]. [place] [phone] Impotence of organic origin; Professional Office Pob, Adc Lab Main Elevated prostate specific antigen (PSA) Building Phlebotomy Lab Professional Office Building [address] [place] [address] , [address] [place] [address] Allergies No Known Allergiesdocumented as [...] Visit Family Medicine Alma Delia Gallardo MD [address] [place] [address] [phone] Name Type Priority Associated Diagnoses Date/Ti me TESTOSTERONE LAB Routine Impotence of organic 020 3:31 PM origin CDT PROSTATIC SPECIFIC ANTIGEN LAB Routine Elevated prost ate 10/28/2019 3:31 PM specific antigen (PSA) CDT Health Maintenance Due Date Last Done Comments [...] Visit Diagnoses Diagnosis Impotence of organic origin Elevated prostate specific antigen (PSA) documented in this encounter Insurance Payer Benefit Plan / Subscriber ID Effective Dates Phone Addre ss Type Group [facility] [id number] 2017-Bianca PPO/POS PPO/POS t documented as of this encounter
--- OUTSIDE RECORDS SUMMARY | 2019-12-09 09:30 | XMS REPORT | Summary of Care ---
:1970 Author Organization [facility] Address [address] [place] [id number] Care Team Providers Name Role Phone Selvin Gallardo MD Primary Care Provider Reason for Visit Reason Comments Follow-up HTN, B12, and obesity f/u Auth/Cert Status Reason Specialty Diagnoses / Procedures Referred By C ontact Referred To Contact Phlebotomy Diagnoses Other long-term (current) drug therapy Essential (primary) hypertension Localized [...] GLUCOSE, BUN, CREATININE, CA) VITAMIN B12, LEVEL [[id number]] [facility] Office Building [address] [place] [address] , [address] [place] [address] Fax: Encounter Details Date Type Department Care Team Description 11/28/2019 Office Visit [facility] Selvin Gallardo ssential hypertension (Primary Dx); and Adult Primary MD Giacomo Bilateral lower extremity edema; [facility]- [address] Obesity (BMI 30-39.9); [address] [place], [place] Encounter for long-term (current) use of medications; [facility], [address] [phone] Medication monitoring encounter; [place], [place] [phone] B12 deficiency [id number] [phone] Allergies No Known Allergiesdocumented as of this encounter (statuses as of 11/29/2019) Medications Medication Sig Dispensed Refills Start Date [...] as of this encounter (statuses as of 11/29/2019) Active Problems Problem Noted Date Neuropathy of both feet 10/07/2019 Increased prostate specific antigen (PSA) velocity 08/2019 Macrocytosis 05/18/2019 B12 deficiency 07/06/2017 Leukopenia 06/04/2017 Abnormal liver function test 06/04/2017 Obesity Seasonal allergies Hypertension Overview: Diagnosed around 2015 Abnormal EKG documented as of this encounter (statuses as of 11/29/2019) Immunizations Name Administration Dates Next Due Td [...] Sign Reading Time Taken Comments Blood Pressure 108/72 11/28/2019 4:14 PM CDT Pulse 60 11/28/2019 4:14 PM CDT Temperature 36.8 C (98.2 F) 11/28/2019 4:14 PM CDT Respiratory Rate - - Oxygen Saturation - - Inhaled Oxygen Concentration - - Weight 171 kg (377 lb) 11/28/2019 4:14 PM CDT Height 193 cm (6' 4") 11/28/2019 4:14 PM CDT Body Mass Index 45.89 11/28/2019 4:14 PM CDT documented in this encounter Patient Instructions Patient InstructionsAlfredoBeverly hamptonlyn R - 11/28/2019 4:15 PM CDT Patient Education Coronavirus Disease 2019 (COVID-19): Prevention The best prevention is to not have contact with the SARS-CoV-2 virus. There is no vaccine yet. Canceling travel and other outings Stay informed about COVID-19 in your area. Follow local instructions about being in public. Be awareof events in your community that may be postponed or canceled, such as school and sporting events. You may be advised not to attend public gatherings. You will be advised to stay at least 6 feet from others as much as possible. This is called "social distancing." You may be advised to stay at home and isolate yourself as much as possible if COVID-19 is in your area. You may hear terms such as "self isolate, "quarantine," stay at home, jail in place, and lockdown. The CDC advises that people should not travel to areas where there are COVID-19 outbreaks right now for any reason that is not urgent. For the most current CDC travel advisories, visit the CDC website at www.cdc.gov/coronavirus/2019- ncov/travelers.Dont go on cruises or do non-essential travel right now. When you are at home Wash your hands often. Use soap and clean, running water for at least 20 seconds. If you don't have access to soap and water, use an alcohol-based hand hadoop analyst often. Make sure it has at least 60% alcohol. Don't touch your eyes, nose, or mouth unless you have clean hands. Dont kiss someone who is sick. If you need to cough or sneeze, do it into a tissue. Then throw the tissue into the trash. If youdon't have tissues, cough or sneeze into the bend of your elbow. When possible, don't touch "high-touch" shared surfaces such as doorknobs and handles, cabinet handles, and light switches. Clean frequently-touched home surfaces often with disinfectant. This includes desk surfaces, printers, phones, kitchen counters, tables, fridge door handle, bathroom surfaces, and any soiled surface. Closely follow disinfectant label instructions. Go to the CDCs detailed cleaning website at www.c dc.gov/coronavirus/2019-ncov/prepare/cleaning-disinfection.html. Check your home supplies. Consider keeping a 2-week supply of medicines, food, and other needed household items. Make a plan for childcare, work, and ways to stay in touch with others. Know who will help you ifyou get sick. Don't be around people who are sick. There is no evidence right now that animals spread SARS-CoV-2. But it's always a good idea to wash your hands after touching any animals. Don't touch animals that may be sick. Dont share eating or drinking utensils with sick people. If you leave home Stay at least 6 feet away from all people. When possible, don't touch "high-touch" public surfaces such as doorknobs and handles, cabinet handles, and light switches. If you touch these surfaces, try to clean them first with a disinfecting wipe. Or touch them using a tissue or paper towel. Use an alcohol-based hand hadoop analyst often. Make sure it has at least 60% alcohol. Don't touch your eyes, nose, or mouth unless you have clean hands. If you need to cough or sneeze, do it into a tissue. Then throw the tissue into the trash. If youdon't have tissues, cough or sneeze into the bend of your elbow. Avoid public gatherings. The CDC advises wearing a cloth face mask in public. During a public health emergency, medical face masks may be reserved for healthcare workers. You may need to make a cloth face mask of your own. You can do this using a bandana, T- shirt, or other cloth. The [facility] has instructions on how to make a mask. If you are at a work site Stay at least 6 feet away from all people. Don't shake hands with anyone. Dont have in-person meetings. Meet over phone or video. Wash your hands often. Use soap and clean, running water for at least 20 seconds. If you don't have access to soap and water, use an alcohol-based hand hadoop analyst often. Make sure it has at least 60% alcohol. Don't touch your eyes, nose, or mouth unless you have clean hands. The CDC advises wearing a cloth face mask in public. During a public health emergency, medical face masks may be reserved for healthcare workers. You may need to make a cloth face mask of your own. You can do this using a bandana, T- shirt, or other cloth. The CDC has instructions on how to make a mask. When possible, don't touch "high-touch" public surfaces such as doorknobs and handles, cabinet handles, and light switches. If you touch these surfaces, clean them first with a disinfecting wipe. Ortouch them using a tissue or paper towel. Use office joshua one person at a time. Consider not having office coffee or tea, or group foods. Dont have meals in groups. Clean work surfaces often with disinfectant. This includes desk surfaces, photocopier, printer, phones, kitchen counters, fridge door handle, bathroom surfaces, and others. Dont touch other peoples personal work tools, such as phones, keyboards, pens, and other items. Dont touch other peoples eating or drinking utensils. If you need to cough or sneeze, do it into a tissue. Then throw the tissue into the trash. If youdon't have tissues, cough or sneeze into the bend of your elbow. If you feel sick in any way, go home and stay home. If you have been exposed to a person with COVID-19 If you've been exposed within that last 14 days to someone who is suspected of having COVID-19 or has tested positive for it: Call your healthcare provider and follow all instructions. Your activities and where you go likely will be restricted for up to 2 weeks. Check your community's instructions about activity restrictions. You may be directed to stay home, or "self-isolate." Take your temperature every morning and evening for at least 14 days. This is to check for fever.Keep a record of the readings. Watch for symptoms of the virus. Call your provider if you have symptoms. Call your provider first before going to any clinic or hospital. See the CDC's symptom waterway traffic checker. Stay home if you are sick for any reason. When to call your healthcare provider Call your healthcare provider if think you have COVID-19 symptoms. These can include fever, cough, and trouble breathing. They may also include body aches, sore throat, or diarrhea. Dont go to a healthcare facility before speaking to a healthcare provider. Last modified date: 07/18/2019 [employer] last reviewed this educational content on 07/13/201919994717-6873 The [employer]. [address] [place] [address]. All rights reserved. This information is not intended as a substitute for professional medical care. Always follow your healthcare professional's instructions. documented in this encounter Progress Notes Selvin Gallardo MD - 11/28/2019 4:15 PM CDT CC: Chief Complaint Patient presents with Follow-up HTN, B12, and obesity f/u HPI Kleber Cornejo is a 49 year old male who presents for HTN, B12, and obesity f/u. HTN follow-up Antihypertensive medication(s): Losartan, HCTZ. Medication compliance: Good. Denies adverse medication side effects. Dietary compliance: Improving. Exercise frequency: The patient is active but doesn't formally exercise. Blood pressure readings: <130/<80 consistently. Associated symptoms: None, his edema has resolved since the addition of HCTZ last visit per the patient. Denies chest pain, SOB, edema, orthopnea, PND, palpitations, dizziness, syncope, headaches, visual changes, or a new neuro deficit. Cardiovascular screening (ex. EKG, stress test) in the past 3 years?: Yes. B12 deficiency follow-up B12 supplementation form: Oral B12 1000mcg daily. Compliance: Good. Denies fatigue, neuropathy symptoms, memory problems, or tongue inflammation. Obesity This is a chronic problem. The patient's obesity started more than 1 year ago. The problem has been gradually improving (the patient has lost 4 lbs over the past 2 months). Diet plan: Less carbs, smaller portions. Exercise frequency: 0 x per week but he considers himself very active though he doesn't formally exercise. No Known Allergies Current Outpatient Medications on File Prior to Visit Medication Sig Dispense Refill hydroCHLOROthiazide 12.5 mg tablet Take 1 tablet by mouth daily. 30 tablet 5 losartan 100 mg tablet Take 1 tablet by mouth daily. 90 tablet 3 triamcinolone acetonide 0.1 % ointment Apply to area(s) 2 (two) times daily. 454 g 2 gabapentin 100 mg capsule Take 1-3 capsules by mouth at bedtime. 90 capsule 0 mupirocin 2 % ointment Apply to area(s) 3 (three) times daily. 22 g 0 sodium hypochlorite 0.5% 0.5 % Soln 50 mL, water for irrigation Soln 950 mL Apply to area(s) atbedtime. 1 Bottle 0 aspirin (ADULT LOW DOSE ASPIRIN) 81 mg [...] Financial resource strain: Not on file Food insecurity Worry: Not on file Inability: Not on file Transportation needs Medical: Not on file Non-medical: Not on file Tobacco Use Smoking status: Never Smoker Smokeless tobacco: Former User Substance and Sexual Activity Alcohol use: Not Currently Alcohol/week: 21.0 standard drinks Types: 21 Cans of beer per week Drug use: Yes Types: Barbiturates Sexual activity: Not on file Lifestyle Physical activity Days per week: Not on file Minutes per session: Not on file Stress: Not on file Relationships Social connections Talks on phone: Not on file Gets together: Not on file Attends confucianism service: Not on file Active member of club or organization: Not on file Attends meetings of clubs or organizations: Not on file Relationship status: Not on file Intimate partner violence Fear of current or ex partner: Not on file Emotionally abused: Not on file Physically abused: Not on file Forced sexual activity: Not on file Other Topics Concern Not on file Social History Narrative 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 Review of Systems Constitutional: Negative. HENT: Negative. Eyes: Negative. Respiratory: Negative. Cardiovascular: Negative. Gastrointestinal: Negative. Genitourinary: Negative. Musculoskeletal: Positive for arthralgias. Skin: Negative. Neurological: Negative. Psychiatric/Behavioral: Negative. Endocrine: Endocrine negative Vital signs BP 108/72 | Pulse 60 | Temp 36.8 C (98.2 F) (Tympanic) | Ht 6' 4" (1.93 m) | Wt 377 lb (171 kg) | BMI 45.89 kg/m Physical Exam Constitutional: He is oriented to person, place, and time. He appears well- developed and well-nourished. No distress. HENT: Mouth/Throat: Oropharynx is clear and moist. Eyes: Pupils are equal, round, and reactive to light. Conjunctivae are normal. No scleral icterus. Neck: Neck supple. No JVD present. No tracheal deviation present. No thyromegaly present. Cardiovascular: Normal rate, regular rhythm, normal heart sounds and intact distal pulses. Exam reveals no gallop and no friction rub. No murmur heard. Pulmonary/Chest: Breath sounds normal. No respiratory distress. He has no wheezes. He has no rales. Abdominal: Soft. Bowel sounds are normal. He exhibits no distension and no mass. There is no abdominal tenderness. Musculoskeletal: General: Edema (Trace BLE edema) present. Lymphadenopathy: He has no cervical adenopathy. Neurological: He is alert and oriented to person, place, and time. Skin: Skin is warm and dry. No rash noted. No pallor. Psychiatric: He has a normal mood and affect. His behavior is normal. Judgment and thought content normal. LABS: CBC CMP WBC (10*3/L) Date [...] all orders for this visit: Essential hypertension, Bilateral lower extremity edema His BLE edema and bp have greatly improved. Continue current antihypertensive medication(s). A f/uBMP was recommended given the new thiazide start last visit. I recommended a low sodium diet/DASH diet along with exercise as part of a heart healthy lifestyle. The patient was instructed to self monitor his blood pressure once-twice daily varying the times when it is checked and to bring the recordof readings to each office visit. The patient should follow-up sooner if the blood pressure is trending >/=130/80. An EKG should be done q1-3 years for cardiac surveillance. If not already followed by Cardiology, the patient should see a Radioactive Waste Disposal Dispatcher for consultation if there is a family history of heart disease in a 1st degree relative, if any cardiovascular symptomatology develops, and for HTN that is resistant to treatment. I recommended immediate ER evaluation for acute symptoms such as chest pain, SOB, syncope, etc. The patient was warned about the potential consequences of uncontrolled HTN including heart disease, renal failure, stroke, etc. - BASIC METABOLIC PANEL (NA, K, CL, CO2, GLUCOSE, BUN, CREATININE, CA); Standing B12 deficiency Continue vit B12 supplementation. We will reassess the patient's vitamin B12 level. - VITAMIN B12, LEVEL; Standing Obesity (BMI 30-39.9) Nutritional/Exercise Counseling and Education: - Counseled on diet, exercise, weight control and goals - Follow-Up plan: -Follow up visit with BMI in 6 Months Encounter for long-term (current) use of medications, Medication monitoring encounter - VITAMIN B12, LEVEL; Standing - BASIC METABOLIC PANEL (NA, K, CL, CO2, GLUCOSE, BUN, CREATININE, CA); Standing Plan of care, desired health behaviors, goals, [...] at a future visit. If applicable, the [facility] database was accessed to review any controlled substance prescription claims data. If the patient is taking prescribed medications, the [employer] prescription claims data in [employer] customer insight was reviewed to assess patient compliance with the medication treatment plan. COVID-19 precautions given including frequent handwashing, social distancing, cleaning and disinfecting, indications for testing, etc. Follow-up: Return in about 6 months (around 05/30/2020) for annual physical (fasting). Follow-up sooner if any problems or concerns. Scribe Attestation Kaye Farrell , am scribing for, and in the presence of, Selvin Glalardo MD who performed the services described here-in. Kaye Dyson, November 28, 2019, 3:40 PM Physician Attestation I, Selvin Gallardo MD, personally performed the services described in this documentation , as scribed by, Kaye Dyson in my presence and it is both accurate and complete. Selvin Gallardo MD November 28, 2019, 3:40 PM documented in this encounter Plan of Treatment Date Type Specialty Care Team Description 02/02/2020 Office Visit Urology Bethel Means MD [address] [place] [address] [phone] 05/28/2020 Office Visit Family Medicine Alma Delia Gallardo MD [address] [place], [place] [phone] Health Maintenance Due Date Last Done Comments DTaP,Tdap,and Td Vaccines (1 - 1989 09/25/2019 Tdap) INFLUENZA VACCINE (#1) 2019 Colorectal Cancer Screening 2020 Depression Screening 10/03/2020 10/04/2019 PNEUMOCOCCAL 0-64 YEARS COMBINED Aged Out No longer eligible based on SERIES patient's age to complete this topic documented as of this encounter Results BASIC METABOLIC PANEL (NA, K, CL, CO2, GLUCOSE, BUN, CREATININE, CA) (11/28/2019 5:24 PM CDT) Pathologist Sig nature NA 135 135 - 145 mmol/L [facility] K 4.5 3.5 - 5.0 mmol/L [facility] CL 100 98 - 108 mmol/L [facility] CO2 TOTAL 27 23 - 31 mmol/L [facility] AGAP 8 2 - 16 [facility] BUN 21 7 - 23 mg/dL [facility] GLUCOSE 96 70 - 110 mg/dL [facility] CREATININE 1.01 0.60 - 1.25 [facility] mg/dL [facility] CALCIUM 9.9 8.6 - 10.6 mg/dL [facility] eGFR Calculation 78.5 mL/min/1.73m2 [facility] (Non-) [facility] Y eGFR Calculation 95.2 mL/min/1.73m2 [facility] () [facility] Specimen Blood Narrative Performed At [facility] of Glomerular Filtration Rate (GFR) [facility] and Staging of Kidney Disease* + [...] tests). Performing Organization Address City/State/Zipcode Phone Number [facility] CLIA: [id number] [place] [address] [address] VITAMIN B12, LEVEL (11/28/2019 5:24 PM CDT) [facility] VIT B12 >1000 (H) 240 - 930 pg/mL [facility] Specimen Blood Narrative Performed At [facility] has been reported to cause a positive bias, int erpret [facility] results relative to patient's use of biotin. Performing Organization Address City/State/Zipcode Phone Number [facility] CLIA: [id number] [place] [address] [place], [place] [address] documented in this encounter Visit Diagnoses Diagnosis Essential hypertension - Primary Unspecified essential hypertension Bilateral lower extremity edema Edema Obesity (BMI 30-39.9) Obesity, unspecified Encounter for long-term (current) use of medications Encounter for long-term (current) use of other medications Medication monitoring encounter Encounter for therapeutic drug monitorin g B12 deficiency Other B-complex deficiencies documented in this encounter Insurance Payer Benefit Plan / Subscriber ID Effective Dates Phone Addre ss Type Group [facility] [id number] 2017-Bianca PPO/POS PPO/POS t documented as of this encounter
--- OUTSIDE RECORDS SUMMARY | 2019-12-09 09:30 | XMS REPORT | Summary of Care ---
:1970 Author Organization [facility] Address [address] [place] [address] Care Team Providers Name Role Phone Selvin Gallardo MD Primary Care Provider Reason for Visit Reason Comments Follow-up HTN, B12, and obesity f/u Auth/Cert Status Reason Specialty Diagnoses / Procedures Referred By C ontact Referred To Contact Phlebotomy Diagnoses Other correction (current) drug therapy Essential (primary) hypertension Localized [...] GLUCOSE, BUN, CREATININE, CA) VITAMIN B12, LEVEL [[id number]] [facility] Office Building [address] [place] [address] , [address] [place] [address] Fax: Encounter Details Date Type Department Care Team Description 11/28/2019 Office Visit [facility] Pediatric Selvin Gallardo ssential hypertension (Primary Dx); and Adult Primary MD Giacomo Bilateral lower extremity edema; [facility]- [address] Obesity (BMI 30-39.9); [address] [place], [place] Encounter for long-term (current) use of medications; [facility], [phone] Medication monitoring encounter; [place], [place] [phone] B12 deficiency [id number] [phone] Allergies No Known Allergiesdocumented as of this [...] soap and water, use an alcohol-based hand shoemaker custom often. Make sure it has at least [...] or paper towel. Use an alcohol-based hand shoemaker custom often. Make sure it has at least [...] T- shirt, or other cloth. The [facility] has instructions on how to make [...] soap and water, use an alcohol-based hand shoemaker custom often. Make sure it has at least [...] clinic or hospital. See the CDC's symptom cafeteria or lunchroom checker. Stay home if you are sick for any reason. When to call your healthcare provider Call your healthcare provider if think you have COVID-19 symptoms. These can include fever, cough, and trouble breathing. They may also include body aches, sore throat, or diarrhea. Dont go to a healthcare facility before speaking to a healthcare provider. Last modified date: 07/18/2019 [employer] last reviewed this educational content on 07/13/201919997440-0117 [employer]. [address] [place] [address]. All rights reserved. 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 Review of Systems Constitutional: Negative. HENT: [...] by Cardiology, the patient should see a Graphic Design Professor for consultation if there is a family [...] at a future visit. If applicable, the [facility] database was accessed to review any controlled substance prescription claims data. If the patient is taking prescribed medications, the [employer] prescription claims data in [employer] was reviewed to assess patient compliance with [...] 02/02/2020 Office Visit Urology Bethel Means MD [address] [place] [address] [phone] 05/28/2020 Office Visit Family Medicine Alma Delia Gallardo MD [address] [place], [place] [phone] Health Maintenance Due Date Last Done [...] nature NA 135 135 - 145 mmol/L [facility] K 4.5 3.5 - 5.0 mmol/L [facility] CL 100 98 - 108 mmol/L [facility] CO2 TOTAL 27 23 - 31 mmol/L [facility] AGAP 8 2 - 16 [facility] BUN 21 7 - 23 mg/dL [facility] GLUCOSE 96 70 - 110 mg/dL [facility] CREATININE 1.01 0.60 - 1.25 [facility] mg/dL [facility] CALCIUM 9.9 8.6 - 10.6 mg/dL [facility] eGFR Calculation 78.5 mL/min/1.73m2 [facility] (Non-) [facility] Y eGFR Calculation 95.2 mL/min/1.73m2 [facility] () [facility] Specimen Blood Narrative Performed At Association of Glomerular Filtration Rate (GFR) [facility] and Staging of Kidney Disease* [...] Address City/State/Zipcode Phone Number [facility] CLIA: [id number] [place] [address] LAB[address] VITAMIN B12, LEVEL (11/28/2019 5:24 PM CDT) [facility] VIT B12 >1000 (H) 240 - 930 pg/mL [facility] Specimen Blood Narrative Performed At [facility] has been reported to cause a positive bias, int erpret [facility] results relative to patient's use of biotin. Performing Organization Address City/State/Zipcode Phone Number [facility] CLIA: [id number] [place] [address] [place], [place] [address] documented in this encounter Visit Diagnoses Diagnosis [...] Dates Phone Addre ss Type Group [facility] [id number] 2017-Bianca PPO/POS PPO/POS t documented as of this encounter
--- OUTSIDE RECORDS SUMMARY | 2019-12-09 09:30 | XMS REPORT | Summary of Care ---
:1970 Author Organization [facility] Address [address] [place] [address] Care Team Providers Name Role Phone Selvin Gallardo MD Primary Care Provider Reason for Visit Reason Comments Lab Results Encounter Details Date Type Department Care Team Description 11/30/2019 Telephone [facility] Benjie Means MD Lab Results [facility] [address] [facility]. 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 Increased prostate specific antigen (PSA) velocity 08/2019 Macrocytosis 05/18/2019 B12 deficiency 07/06/2017 Leukopenia 06/04/2017 Abnormal liver function test 06/04/2017 Obesity Seasonal allergies Hypertension Overview: Diagnosed around 2015 Abnormal EKG documented as of this encounter (statuses as of 11/30/2019) Immunizations Name Administration Dates Next Due Td [...] Signs Not on filedocumented in this encounter Miscellaneous Notes Telephone Encounter - Farnaz Smalls RN - 11/30/2019 3:06 PM CDT Bethel Means MD P Urology Nurse LH Within normal limits T : low 200 PSA : 1.02 within normal limits Plan: Second level T AM level PSA and RTC 3 months, may consider MRI prostate with a plan for prostate biopsy Spoke /c patient. Pt id by name and . Discussed results and recommendations. Orders placed for Testosterone and PSA. Advised patient to call to schedule lab appointments at his convenience for morning testosterone. Also advised patient to have PSA drawn before next visit /c Dr. Means in 3 months. Patient verbalizedunderstanding and agrees to POC. documented in this encounter Plan of Treatment Date Type Specialty Care Team Description 02/02/2020 Office Visit Urology Bethel Means MD [address] [place] [address]. [place], [place] [phone] 05/28/2020 Office Visit Family Medicine Alma Delia Gallardo MD [address] [place], [place] [phone] Name Type Priority Associated Diagnoses Order S chedule TESTOSTERONE LAB Routine Impotence of organic Expecte d: 11/30/2019, origin Expires: 2020 PROSTATIC SPECIFIC ANTIGEN LAB Routine Elevated prost ate Expected: 12/30/2019, specific antigen (PSA) Expir es: 11/29/2020 Health Maintenance Due Date Last Done Comments [...] Phone Addre ss Type Group [facility] [id number] 2017-Presen PPO/POS PPO/POS t documented as of this encounter
--- NOTE | 2019-12-09 10:35 | RAD REPORT ---
EXAM DESCRIPTION: RAD - Ankle Right 3 View - 12/09/2019 10:22 am CLINICAL HISTORY: PAIN COMPARISON: No comparisons FINDINGS: No fracture, dislocation or periosteal reaction. No joint effusion seen. No joint space na rrowing is seen. There is minimal degenerative change at the tibiotalar joint space. Plantar spur and Achilles spur present. Mild soft tissue swelling around the ankle joint. IMPRESSION: Soft tissue swelling around the joint without fracture.
--- NOTE | 2019-12-09 10:37 | RAD REPORT ---
EXAM DESCRIPTION: RAD - Foot Right 3 View - 12/09/2019 10:24 am CLINICAL HISTORY: PAIN COMPARISON: Foot Right 3 View dated 05/31/2014None. FINDINGS: No fracture, dislocation or periosteal reaction. No acute or destructive bone process iden tified. Patient has a small to moderate-sized plantar spur and spurring at the Achilles attachment as well. Soft tissues around the ankle joint are edematous. No significant soft tissue swelling of the foot. IMPRESSION: No acute bone or joint finding. Soft tissue swelling around the ankle joint. Plantar and Achilles spurs are present.
--- NOTE | 2019-12-09 11:07 | ER ---
Nurse's Notes [facility] Name: Kleber Cornejo Jr Age: 49 yrs Sex: Male : 1970 Arrival Date: 12/09/2019 Time: :28 Bed 18 Private MD: Diagnosis: Sprain of ankle-right;Other sprain of right foot Presentation: 12/08 09:37 Chief complaint: Patient states: R foot pain after falling this morning. Pt reports ss that he did not have any pain initially, but now he can hardly put any weight on his foot. Coronavirus screen: Client denies travel out of the [place] in the last 14 days. At this time, the client does not indicate any symptoms associated with coronavirus-19. Ebola Screen: Patient denies exposure to infectious person. Patient denies travel to an Ebola-affected area in the 21 days before illness onset. Ebola Screen: Patient denies exposure to infectious person. Patient denies travel to an Ebola-affected area in the 21 days before illness onset. Initial Sepsis Screen: Does the patient meet any 2 criteria? No. Patient's initial sepsis screen is negative. Does the patient have a suspected source of infection? No. Patient's initial sepsis screen is negative. Risk Assessment: Do you want to hurt yourself or someone else? Patient reports no desire to harm self or others. Onset of symptoms was December 09, 2019. 09:37 Method Of Arrival: Ambulatory 09:37 Acuity: BRANDON 4 ss Historical: - Allergies: 09:39 MOLDS; ss - PMHx: 09:39 Hypertension; ss - PSHx: 09:39 Tonsillectomy; Hernia repair; ss - Immunization history:: Adult Immunizations up to date. - Social history:: Smoking status: Patient denies any tobacco usage or history of. Screenin:40 Abuse screen: Denies threats or abuse. Denies injuries from another. Nutritional jl7 screening: No deficits noted. Tuberculosis screening: No symptoms or risk factors identified. Fall Risk None identified. Assessment: 09:40 General: Appears in no apparent distress. uncomfortable, Behavior is calm, cooperative, jl7 appropriate for age. Pain: Complains of pain in right ankle and dorsum of right foot Pain currently is 7 out of 10 on a pain scale. Neuro: Level of Consciousness is awake, alert, obeys commands, Oriented to person, place, time, situation. Cardiovascular: Patient's skin is warm and dry. Respiratory: Airway is patent Respiratory effort is even, unlabored, Respiratory pattern is regular, symmetrical. Derm: Skin is pink, warm \T\ dry. Musculoskeletal: Capillary refill < 3 seconds, in right toes. Range of motion: limited in right ankle ROM limited in R ankle d/t pain Swelling present in right ankle. 10:30 Reassessment: Patient appears in no apparent distress at this time. Patient and/or jl7 family updated on plan of care and expected duration. Pain level reassessed. Patient is alert, oriented x 3, equal unlabored respirations, skin warm/dry/pink. pain rated 5/10 at this time Patient states symptoms have improved. Vital Signs: 09:37 BP 124 / 74; Pulse 62; Resp 18; Temp 98.1(TE); Pulse Ox 98% on R/A; Weight 163.29 kg; ss Height 6 ft. 4 in. (193.04 cm); Pain 7/10; 10:30 BP 113 / 62; Pulse 54; Resp 17; Pulse Ox 100% ; Pain 5/10; jl7 11:52 BP 107 / 57; Pulse 51; Resp 17; Pulse Ox 100% ; jl7 09:37 Body Mass Index 43.82 (163.29 kg, 193.04 cm) ED Course: 09:28 Patient arrived in ED. ds1 09:32 Marco Antonio Marques MD is Attending Physician. kdr 09:39 Triage completed. ss 09:39 Arm band placed on right wrist. ss 09:40 Rashid Bueno RN is Primary Nurse. jl7 09:40 Patient has correct armband on for positive identification. Bed in low position. Call jl7 light in reach. Side rails up X 1. 09:58 Ice pack to injury. jl7 10:18 Foot Right 3 View XRAY In Process Unspecified. EDMS 10:18 Ankle Right 3 View XRAY In Process Unspecified. EDMS 11:45 Crutch training done. Tristan wrap to right ankle Air-Cast applied. jl7 11:53 No provider procedures requiring assistance completed. Patient did not have IV access jl7 during this emergency room visit. Administered Medications: 09:48 Drug: Empire 10 mg-325 mg 1 tabs Route: PO; jl7 10:30 Follow up: Response: No adverse reaction; Pain is decreased jl7 Outcome: 11:07 Discharge ordered by . melody 11:54 Discharged to home ambulatory. jl7 11:54 Condition: stable 11:54 Discharge instructions given to patient, Instructed on discharge instructions, follow up and referral plans. medication usage, Demonstrated understanding of instructions, follow-up care, medications, Prescriptions given X 1. 11:54 Patient left the ED. jl7 Signatures: Dispatcher [employer] EDMS Marco Antonio Marques MD MD kdr Sanford, Demi ds1 Nadya Kumar, VANNESSA RN Rashid Escobar RN RN jl7
--- NOTE | 2019-12-09 11:07 | EDPHYS ---
Physician Documentation [facility] Name: Kleber Cornejo Jr Age: 49 yrs Sex: Male : 1970 Arrival Date: 12/09/2019 Time: : Bed 18 Private MD: ED Physician Marco Antonio Marques HPI: 12/08 09:47 This 49 yrs old Male presents to ER via Ambulatory with complaints of Foot kdr Injury. 09:47 The patient presents with decreased range of motion, a deformity, an injury, pain, that kdr is acute, swelling, tenderness. The complaints affect the right foot. Context: The problem was sustained at home, resulted from a mis-step by the patient, Missed a step on the stairs, Mechanism of Injury: Unknown the patient can partially bear weight, the patient is able to ambulate, with moderate difficulty. Onset: The symptoms/episode began/occurred suddenly, this morning, at 04:00. Modifying factors: The symptoms are alleviated by nothing, the symptoms are aggravated by weight bearing, movement. Associated signs and symptoms: The patient has no apparent associated signs or symptoms. Severity of symptoms: At their worst the symptoms were mild, moderate, just prior to arrival, this morning. 09:58 The patient has not experienced similar symptoms in the past. The patient has not kdr recently seen a physician. Historical: - Allergies: 09:39 MOLDS; ss - PMHx: 09:39 Hypertension; ss - PSHx: 09:39 Tonsillectomy; Hernia repair; ss - Immunization history:: Adult Immunizations up to date. - Social history:: Smoking status: Patient denies any tobacco usage or history of. ROS: 09:58 MS/extremity: Positive for injury or acute deformity, decreased range of motion, kdr deformity, pain, swelling, tenderness, warmth, of the right ankle and lateral aspect of right foot. 09:58 Constitutional: Negative for fever, chills, and weight loss, Eyes: Negative for injury, pain, redness, and discharge. Exam: 09:58 Constitutional: This is a well developed, well nourished patient who is awake, alert, kdr and in no acute distress. 09:58 Musculoskeletal/extremity: Extremities: grossly normal except: noted in the right ankle and lateral aspect of right foot: decreased ROM, erythema, pain, swelling, tenderness. Vital Signs: 09:37 BP 124 / 74; Pulse 62; Resp 18; Temp 98.1(TE); Pulse Ox 98% on R/A; Weight 163.29 kg; ss Height 6 ft. 4 in. (193.04 cm); Pain 7/10; 10:30 BP 113 / 62; Pulse 54; Resp 17; Pulse Ox 100% ; Pain 5/10; jl7 11:52 BP 107 / 57; Pulse 51; Resp 17; Pulse Ox 100% ; jl7 09:37 Body Mass Index 43.82 (163.29 kg, 193.04 cm) ss MDM: 09:58 Data reviewed: vital signs, nurses notes, lab test result(s), radiologic studies. kdr Counseling: I had a detailed discussion with the patient and/or guardian regarding: the historical points, exam findings, and any diagnostic results supporting the discharge/admit diagnosis, radiology results, the need for outpatient follow up. 11:07 Patient medically screened. kdr 12/08 09:47 Order name: Foot Right 3 View XRAY; Complete Time: 11:04 kdr 12/08 09:47 Order name: Ankle Right 3 View XRAY; Complete Time: 11:04 kdr 12/08 11:05 Order name: Tristan Wrap; Complete Time: 11:51 kdr 12/08 11:05 Order name: Aircast Ankle Splint; Complete Time: 11:51 kdr 12/08 11:05 Order name: Crutch Training; Complete Time: 11:51 kdr Administered Medications: 09:48 Drug: Riley 10 mg-325 mg 1 tabs Route: PO; [facility] 10:30 Follow up: Response: No adverse reaction; Pain is decreased jl7 Disposition: 12/09/19 11:07 Discharged to Home. Impression: Sprain of ankle - right, Other sprain of right foot. - Condition is Stable. - Discharge Instructions: Ankle Sprain. - Prescriptions for Ibuprofen 800 mg Oral Tablet - take 1 tablet by ORAL route every 8 hours As needed take with food; 15 tablet. Tramadol 50 mg Oral Tablet - take 1 tablet by ORAL route every 8 hours as needed; 12 tablet. - Medication Reconciliation Form, Thank You Letter, Antibiotic Education, Prescription Opioid Use, Work release form form. - Follow up: Private Physician; When: 2 - 3 days; Reason: If symptoms return, Further diagnostic work-up, Recheck today's complaints, Continuance of care, Re-evaluation by your physician. - Problem is new. - Symptoms have improved. Signatures: Dispatcher [employer] Marco Antonio Tang MD MD kdr Nadya Kumar RN RN ss Rashid Bueno RN RN jl7 Corrections: (The following items were deleted from the chart) 11:54 11:07 12/09/2019 11:07 Discharged to Home. Impression: Sprain of ankle - right; Other jl7 sprain of right foot. Condition is Stable. Forms are Medication Reconciliation Form, Thank You Letter, Antibiotic Education, Prescription Opioid Use. Follow up: Private Physician; When: 2 - 3 days; Reason: If symptoms return, Further diagnostic work-up, Recheck today's complaints, Continuance of care, Re-evaluation by your physician. Problem is new. Symptoms have improved. kdr
[2019-12-13 11:37] VITALS: TEMP 98.1
[2019-12-13 11:42] VITALS: O2SAT 100
[2019-12-13 11:43] VITALS: BP 107/57
== END 2019-12-09 11:54 | disposition home or self-care (01) ==
LOC: ER 09:26
DX: S93.401A Sprain of unspecified ligament of right ankle, initial encounter (principal); S93.691A Other sprain of right foot, initial encounter; X58.XXXA Exposure to other specified factors, initial encounter; Y93.01 Activity, walking, marching and hiking; Y92.009 Unspecified place in unspecified non-institutional (private) residence as the place of occurrence of the external cause; I10 Essential (primary) hypertension; Z91.048 Other nonmedicinal substance allergy status
CPT/HCPCS: 99284

== ENCOUNTER 2020-10-05 20:38 | Observation (INO) | payer OTHER ==
--- OUTSIDE RECORDS SUMMARY | 2020-10-05 20:41 | XMS REPORT | Continuity of Care Document ---
:1970 Author Organization [facility] t Address [address] [place] [address] Care Team Providers Name Role Phone Sami DE OLIVEIRA, Giacomo Attending Clinician Kristopher, Wade Main Attending Clinician Unavailable Doctor Unassigned, Name Attending Clinician Unavailable Clary DE OLIVEIRA Attending Clinician Problems This patient has no known problems. Allergies, Adverse Reactions, Alerts This patient has no known allergies or adverse reactions. Medications This patient has no known medications. Procedures This patient has no known procedures. Encounters Start End Encounter Admission Attending Care Care Encounter Source Date/Time Date/Time Type Type Clinicians Facility Department ID 2020-10-01 2020-10-01 Telephone SALVADOR Gallardo [id number] 00:00:00 00:00:00 [facility] A [facility] [id number] [place] [id number] [place] [id number] n[place] 044 Office Building One 2020-09-22 2020-09-22 Trimming Cutter Machine Josemanuel Summers MISYED [id number] 07:52:05 08:07:05 Visit Lab Main [place] [id number] [place] [id number] [place] [id number] [place] [address] Building 2020-09-22 2020-09-22 Orders Doctor SALCIDO [id number] 00:00:00 00:00:00 Only Unassigned, [place] [id number] [facility] [id number] 2020-09-22 2020-09-22 Letter Doctor LOLY [id number] 00:00:00 00:00:00 (Out) Unassigned, [place] [id number] [facility] [id number] 2020-08-14 2020-08-14 Refill Sami [facility] [id number] 00:00:00 00:00:00 [facility] [id number] [place] [id number] [place] [id number] nal 044 Office Building One 2020-06-07 2020-06-07 Office Clary [facility] [id number] 14:31:59 15:17:49 Visit Bethel Lee [id number] [place] [id number] [place] [id number] nal 204 Building Results This patient has no known results.
[2020-10-05 23:32] LABS: Urine Blood Negative (Negative); Urine Glucose Negative (Negative); Urine Protein Trace (Negative); Urine Specific Gravity >=1.030 (1.005-1.030)
[2020-10-05 23:35] LABS: Absolute Lymphocytes (CBC) 0.6 K/uL (0.7-4.9); Basophils % 0.3 % (0-1.3); Hematocrit 42.9 % (39.6-49.0); Lymphocytes % 5.2 % (15.3-44.8); MPV 7.3 fL (7.6-11.3); RBC Red Blood Cell Count 4.65 M/uL (4.33-5.43)
[2020-10-05 23:53] LABS: Albumin 3.9 g/dL (3.4-5.0); Bilirubin Direct 0.2 mg/dL (0-0.2); Bilirubin Total 0.8 mg/dL (0.2-1.0); Potassium 4.1 mmol/L (3.5-5.1); Protein, Total 8.4 g/dL (6.4-8.2)
[2020-10-06] MEDS ORDERED: MORPHINE 4 MG/ML SYR ONE ×2 (00:40→03:01)
[2020-10-06] MEDS ORDERED: ONDANSETRON 4 MG/2 ML VIAL ONE (00:40)
[2020-10-06] MEDS ORDERED: NA CHLORIDE 0.9% 1,000 ML ONE ×2 (00:41→02:25)
--- NOTE | 2020-10-06 01:53 | EDPHYS ---
Physician Documentation [facility] Name: Kleber Cornejo Jr Age: 50 yrs Sex: Male : 1970 Arrival Date: 10/05/2020 Time: 21:11 Bed 17 Private MD: KESHAV Physician Toby Hedrick HPI: 10/06 00:09 This 50 yrs old Male presents to ER via Ambulatory with complaints of Abd mh7 Pain > 50 y/o. 00:09 The patient presents with abdominal pain in the lower abdomen. Onset: The mh7 symptoms/episode began/occurred today, at 10:00. The symptoms do not radiate. 00:10 Associated signs and symptoms: Pertinent negatives: nausea, vomiting, and diarrhea, mh7 nausea and vomiting, anorexia, blood in stools, chest pain, constipation, diarrhea, dysuria, fever, headache, hematuria, nausea, palpitations, shortness of breath, testicular pain, vomiting, vomiting blood. The symptoms are described as intermittent, vague, waxing/waning. Modifying factors: The symptoms are alleviated by nothing, the symptoms are aggravated by nothing. Severity of pain: At its worst the pain was moderate today, in the emergency department the pain is unchanged. Historical: - Allergies: 10/05 21:13 MOLDS; ca1 - PMHx: 21:13 Hypertension; ca1 - PSHx: 21:13 Hernia repair; ca1 - Immunization history:: Client reports having NOT received the Covid vaccine. Flu vaccine is not up to date. - Social history:: Smoking status: Patient denies any tobacco usage or history of. ROS: 10/06 00:10 Constitutional: Negative for fever, chills, and weight loss, Eyes: Negative for injury, mh7 pain, redness, and discharge, ENT: Negative for injury, pain, and discharge, Neck: Negative for injury, pain, and swelling, Cardiovascular: Negative for chest pain, palpitations, and edema, Respiratory: Negative for shortness of breath, cough, wheezing, and pleuritic chest pain, Back: Negative for injury and pain, : Negative for injury, bleeding, discharge, and swelling, MS/Extremity: Negative for injury and deformity, Skin: Negative for injury, rash, and discoloration, Neuro: Negative for headache, weakness, numbness, tingling, and seizure, Psych: Negative for depression, anxiety, suicide ideation, homicidal ideation, and hallucinations, Allergy/Immunology: Negative for hives, rash, and allergies, Endocrine: Negative for neck swelling, polydipsia, polyuria, polyphagia, and marked weight changes, Hematologic/Lymphatic: Negative for swollen nodes, abnormal bleeding, and unusual bruising. Exam: 00:10 Constitutional: This is a well developed, well nourished patient who is awake, alert, mh7 and in no acute distress. Head/Face: Normocephalic, atraumatic. Eyes: Pupils equal round and reactive to light, extra-ocular motions intact. Lids and lashes normal. Conjunctiva and sclera are non-icteric and not injected. Cornea within normal limits. Periorbital areas with no swelling, redness, or edema. Neck: Trachea midline, no thyromegaly or masses palpated, and no cervical lymphadenopathy. Supple, full range of motion without nuchal rigidity, or vertebral point tenderness. No Meningismus. Chest/axilla: Normal chest wall appearance and motion. Nontender with no deformity. No lesions are appreciated. Cardiovascular: Regular rate and rhythm with a normal S1 and S2. No gallops, murmurs, or rubs. Normal PMI, no JVD. No pulse deficits. Respiratory: Lungs have equal breath sounds bilaterally, clear to auscultation and percussion. No rales, rhonchi or wheezes noted. No increased work of breathing, no retractions or nasal flaring. 00:10 Back: No spinal tenderness. No costovertebral tenderness. Full range of motion. Skin: Warm, dry with normal turgor. Normal color with no rashes, no lesions, and no evidence of cellulitis. MS/ Extremity: Pulses equal, no cyanosis. Neurovascular intact. Full, normal range of motion. Neuro: Awake and alert, GCS 15, oriented to person, place, time, and situation. Cranial nerves II-XII grossly intact. Motor strength 5/5 in all extremities. Sensory grossly intact. Cerebellar exam normal. Normal gait. Psych: Awake, alert, with orientation to person, place and time. Behavior, mood, and affect are within normal limits. 00:10 Abdomen/GI: Inspection: obese Bowel sounds: normal, in all quadrants, Palpation: moderate abdominal tenderness, in all quadrants, mass, is not appreciated, rebound tenderness, is not appreciated, voluntary guarding, is not appreciated, involuntary guarding, is not appreciated, no appreciated organomegaly, Rectal exam: the exam is deferred, because of patient request, Indicators: McBurney's point is not tender, Aguilar's sign is negative, Rovsing's sign is negative, Obturator sign is negative, Psoas sign is negative, Liver: no appreciated palpable abnormalities, Hernia: not appreciated. Vital Signs: 10/05 21:11 BP 139 / 81; Pulse 81; Resp 17 S; Temp 98.3(TE); Pulse Ox 98% on R/A; Weight 158.76 kg ca1 (R); Height 6 ft. 4 in. (193.04 cm) (R); Pain 7/10; 10/06 01:30 BP 146 / 89; Pulse 69; Resp 17; Pulse Ox 99% ; Pain 4/10; rr5 02:30 BP 126 / 89; Pulse 60; Resp 17; Pulse Ox 98% ; rr5 03:34 BP 135 / 78; Pulse 62; Resp 17; Pulse Ox 98% ; rr5 10/05 21:11 Body Mass Index 42.60 (158.76 kg, 193.04 cm) ca1 MDM: 01:51 Differential diagnosis: appendicitis, bowel obstruction, diverticulitis, non-specific mh7 abd pain, Ureterolithiasis, urinary tract infection. Data reviewed: vital signs, nurses notes, lab test result(s), CBC, electrolytes, urinalysis, radiologic studies, CT scan. Counseling: I had a detailed discussion with the patient and/or guardian regarding: the historical points, exam findings, and any diagnostic results supporting the discharge/admit diagnosis, lab results, radiology results, the need for further work-up and treatment in the hospital. Response to treatment: the patient's symptoms have markedly improved after treatment. 01:52 Patient medically screened. mh7 10/05 23:17 Order name: Basic Metabolic Panel; Complete Time: 00:07 rr5 10/05 23:17 Order name: CBC with Diff; Complete Time: 23:39 rr5 10/05 23:17 Order name: Hepatic Function; Complete Time: 00:07 rr5 10/05 23:17 Order name: Lipase; Complete Time: 00:07 rr5 10/05 23:31 Order name: Urine Dipstick-Ancillary; Complete Time: 23:38 [facility] 10/06 01:49 Order name: COVID-19 : Document "Date of Symptom Onset" if Symptomatic. 2 10/05 23:17 Order name: IV Saline Lock; Complete Time: 00:37 [facility] 10/05 23:39 Order name: CT Abd/Pelvis - IV Contrast Only [facility] 10/06 02:01 Order name: NPO [facility] 10/06 03:16 Order name: SARS-COV-2 RT PCR [facility] 10/05 23:17 Order name: Labs collected and sent; Complete Time: 00:38 [facility] 10/05 23:39 Order name: EKG - Nurse/Tech; Complete Time: 00:30 [facility] Administered Medications: 00:28 Drug: morphine 4 mg {Note: rass 0.} Route: IVP; Site: right antecubital; rr5 01:10 Follow up: Response: No adverse reaction; Pain is decreased; RASS: Alert and Calm (0) rr5 00:30 Drug: Zofran (Ondansetron) 4 mg Route: IVP; Site: right antecubital; rr5 01:30 Follow up: Response: No adverse reaction rr5 00:30 Drug: NS 0.9% 1000 ml Route: IV; Rate: 1000 ml; Site: right antecubital; rr5 01:30 Follow up: Response: No adverse reaction; IV Status: Completed infusion; IV Intake: rr5 1000ml 02:10 Dru.375 grams of (Zosyn (piperacillin-tazobactam) 3.375 grams, NS 0.9% 100 ml) rr5 Route: IVPB; Infused Over: 60 mins; Site: right antecubital; 02:54 Follow up: Response: No adverse reaction; IV Status: Completed infusion; IV Intake: rr5 100ml Disposition: 10/06/20 01:52 Hospitalization ordered by Trenton Parekh for Inpatient Admission. Preliminary diagnosis is Acute appendicitis. - Bed requested for Telemetry/MedSurg (Inpatient). - Status is Inpatient Admission. rr5 - Condition is Stable. - Problem is new. - Symptoms have improved. Signatures: Dispatcher [employer] EDOR Osbaldo Blanchard RN RN rr5 Hillary Singh RN RN ca1 Toby Hedrick MD MD 7 Benjamin, Joanie, RN RN rd1 Corrections: (The following items were deleted from the chart) 02:50 01:52 Hospitalization Ordered by Trenton Parekh MD for Inpatient Admission. Preliminary rd1 diagnosis is Acute appendicitis. Bed requested for Telemetry/MedSurg (Inpatient). Status is Inpatient Admission. Condition is Stable. Problem is new. Symptoms have improved. mh7 04:02 02:50 10/06/2020 01:52 Hospitalization Ordered by Trenton Parekh MD for Inpatient rr5 Admission. Preliminary diagnosis is Acute appendicitis. Bed requested for Telemetry/MedSurg (Inpatient). Status is Inpatient Admission. Condition is Stable. Problem is new. Symptoms have improved. rd1
--- NOTE | 2020-10-06 01:53 | ER ---
Nurse's Notes [facility] Name: Kleber Cornejo Jr Age: 50 yrs Sex: Male : 1970 Arrival Date: 10/05/2020 Time: 21:11 Bed 17 Private MD: Diagnosis: Acute appendicitis Presentation: 10/05 21:11 Chief complaint: Patient states: Lower and abdominal pain since 0730 today. Feels very ca1 gassy. Coronavirus screen: Client denies travel out of the [place] in the last 14 days. At this time, the client does not indicate any symptoms associated with coronavirus-19. Ebola Screen: Patient negative for fever greater than or equal to 101.5 degrees Fahrenheit, and additional compatible Ebola Virus Disease symptoms Patient denies exposure to infectious person. Patient denies travel to an Ebola-affected area in the 21 days before illness onset. No symptoms or risks identified at this time. Initial Sepsis Screen: Does the patient meet any 2 criteria? No. Patient's initial sepsis screen is negative. Does the patient have a suspected source of infection? No. Patient's initial sepsis screen is negative. Risk Assessment: Do you want to hurt yourself or someone else? Patient reports no desire to harm self or others. Onset of symptoms was October 05, 2020 at 07:30. 21:11 Method Of Arrival: Ambulatory ca1 21:11 Acuity: BRANDON 3 ca1 Triage Assessment: 10/06 00:30 General: Appears in no apparent distress. uncomfortable, Behavior is calm, cooperative, rr5 appropriate for age. Historical: - Allergies: 10/05 21:13 MOLDS; ca1 - PMHx: 21:13 Hypertension; ca1 - PSHx: 21:13 Hernia repair; ca1 - Immunization history:: Client reports having NOT received the Covid vaccine. Flu vaccine is not up to date. - Social history:: Smoking status: Patient denies any tobacco usage or history of. Screenin/26 01:00 Abuse screen: Denies threats or abuse. Denies injuries from another. Nutritional rr5 screening: No deficits noted. Tuberculosis screening: No symptoms or risk factors identified. Fall Risk IV access (20 points). Total Self Fall Scale indicates No Risk (0-24 pts). Assessment: 00:30 General: Appears in no apparent distress. uncomfortable, Behavior is calm, cooperative, rr5 appropriate for age. Pain: Complains of pain in right lower quadrant Pain radiates to left upper quadrant and left lower quadrant Pain Quality of pain is described as aching, Pain began gradually, Is intermittent. 00:30 Neuro: Level of Consciousness is awake, alert, obeys commands, Oriented to person, rr5 place, time. Cardiovascular: Capillary refill < 3 seconds Patient's skin is warm and dry. Respiratory: Airway is patent Respiratory effort is even, unlabored, Respiratory pattern is regular, symmetrical. GI: Abdomen is round non-distended, Abdomen is tender to palpation Reports lower abdominal pain, upper abdominal pain, nausea, vomiting. : No signs and/or symptoms were reported regarding the genitourinary system. EENT: No signs and/or symptoms were reported regarding the EENT system. Derm: Skin is intact, is healthy with good turgor, Skin temperature is warm. Musculoskeletal: Capillary refill < 3 seconds. 01:30 Reassessment: Patient appears in no apparent distress at this time. Patient is alert, rr5 oriented x 3, equal unlabored respirations, skin warm/dry/pink. awaiting for result Patient states symptoms have improved. 02:20 Reassessment: Patient appears in no apparent distress at this time. Patient is alert, rr5 oriented x 3, equal unlabored respirations, skin warm/dry/pink. Patient states feeling better. Patient states symptoms have improved. 03:15 Reassessment: Patient appears in no apparent distress at this time. Patient is alert, rr5 oriented x 3, equal unlabored respirations, skin warm/dry/pink. complaint of abdominal pain, pain medication given and signed in [facility]. 03:50 Reassessment: Patient appears in no apparent distress at this time. Patient is alert, rr5 oriented x 3, equal unlabored respirations, skin warm/dry/pink. Patient states symptoms have improved. Vital Signs: 10/05 21:11 BP 139 / 81; Pulse 81; Resp 17 S; Temp 98.3(TE); Pulse Ox 98% on R/A; Weight 158.76 kg ca1 (R); Height 6 ft. 4 in. (193.04 cm) (R); Pain 7/10; 10/06 01:30 BP 146 / 89; Pulse 69; Resp 17; Pulse Ox 99% ; Pain 4/10; rr5 02:30 BP 126 / 89; Pulse 60; Resp 17; Pulse Ox 98% ; rr5 03:34 BP 135 / 78; Pulse 62; Resp 17; Pulse Ox 98% ; rr5 10/05 21:11 Body Mass Index 42.60 (158.76 kg, 193.04 cm) ca1 ED Course: 10/05 21:11 Patient arrived in ED. ca1 21:12 Triage completed. ca1 21:13 Arm band placed on right wrist. ca1 23:19 Toby Hedrick MD is Attending Physician. mh7 23:20 Patient has correct armband on for positive identification. Bed in low position. Call 5 light in reach. Side rails up X 1. Adult w/ patient. Pulse ox on. NIBP on. 23:31 Urine collected: clean catch specimen, clear. Inserted saline lock: 20 gauge in right rr5 antecubital area, using aseptic technique. Blood collected. 10/06 00:29 Osbaldo Blanchard RN is Primary Nurse. rr5 00:50 CT Abd/Pelvis - IV Contrast Only In Process Unspecified. EDMS 01:52 Trenton Parekh MD is Hospitalizing Provider. [facility] 04:00 No provider procedures requiring assistance completed. Patient admitted, IV remains in rr5 place. intact, No redness/swelling at site. Administered Medications: 00:28 Drug: morphine 4 mg {Note: rass 0.} Route: IVP; Site: right antecubital; rr5 01:10 Follow up: Response: No adverse reaction; Pain is decreased; RASS: Alert and Calm (0) rr5 00:30 Drug: Zofran (Ondansetron) 4 mg Route: IVP; Site: right antecubital; rr5 01:30 Follow up: Response: No adverse reaction rr5 00:30 Drug: NS 0.9% 1000 ml Route: IV; Rate: 1000 ml; Site: right antecubital; rr5 01:30 Follow up: Response: No adverse reaction; IV Status: Completed infusion; IV Intake: rr5 1000ml 02:10 Dru.375 grams of (Zosyn (piperacillin-tazobactam) 3.375 grams, NS 0.9% 100 ml) rr5 Route: IVPB; Infused Over: 60 mins; Site: right antecubital; 02:54 Follow up: Response: No adverse reaction; IV Status: Completed infusion; IV Intake: rr5 100ml Intake: 01:30 IV: 1000ml; Total: 1000ml. rr5 02:54 IV: 100ml; Total: 1100ml. rr5 Outcome: 01:52 Decision to Hospitalize by Provider. 7 04:00 Discharged to home via wheelchair. rr5 04:00 Condition: stable 04:00 Discharge instructions given to patient, Instructed on the need for admit, Demonstrated understanding of instructions. 04:02 Patient left the ED. rr5 Signatures: Dispatcher [employer] Janey Armstrong 5 Osbaldo Blanchard RN RN rr5 Hillary Singh RN RN ca1 Toby Hedrick MD MD 7 Corrections: (The following items were deleted from the chart) 04:16 01:30 Reassessment: Patient appears in no apparent distress at this time. Patient is rr5 alert, oriented x 3, equal unlabored respirations, skin warm/dry/pink. rr5
[2020-10-06] MEDS: D5 0.45 NS 1,000 ML IV SCH ×3 (02:00→18:00)
[2020-10-06] MEDS ORDERED: PIPERACIL/TAZO 3.375 GM VIAL IV ONE (02:25)
[2020-10-06] MEDS ORDERED: NA CHLORIDE 0.9% 100 ML ONE (02:25)
[2020-10-06] MEDS: MORPHINE 4 MG/ML SYR IV PRN ×3 (02:39→20:59)
[2020-10-06] MEDS ORDERED: D5 0.45 NS 1,000 ML IV ONE (02:54)
[2020-10-06 04:25] VITALS: BMI 42.7
[2020-10-06] MEDS ORDERED: PIPER/TAZO/NS 3.375gm 3.375 GM/100 ML BAG IVPB SCH (06:00)
[2020-10-06] MEDS ORDERED: PIPER/TAZO/NS 3.375gm 3.375 GM/100 ML BAG IV SCH (09:00)
[2020-10-06] MEDS ORDERED: Ringers Lactate 1,000 ML IV ONE ×2 (09:59→12:17)
[2020-10-06] MEDS: PIPER/TAZO/NS 3.375gm 3.375 GM/100 ML BAG IV SCH ×2 (10:00→16:35)
[2020-10-06] MEDS ORDERED: SUCCINYLCHOLINE 20 MG/ML (10 ML) IV ONE (10:53)
--- NOTE | 2020-10-06 10:57 | P.BOP ---
Preoperative diagnosis: Acute appendicitis Postoperative diagnosis: same Primary procedure: Laparoscopic appendectomy Specimen: chandni Anesthesia: General Transferred to: Recovery Room Condition: Good
[2020-10-06] MEDS ORDERED: ROCURONIUM 50 MG/5 ML VIAL IV ONE (11:01)
[2020-10-06] MEDS ORDERED: FENTANYL CITR 250 MCG/5 ML ONE (11:01)
[2020-10-06] MEDS ORDERED: propofoL 200 MG/20 ML VIAL IV ONE (11:01)
--- NOTE | 2020-10-06 11:51 | P.BOP ---
Preoperative diagnosis: Acute appendicitis, peritonitis Postoperative diagnosis: same, suppurative appendicitis, umbilical hernia Primary procedure: 1. Laparoscopic appendectomy Secondary procedure: 2. open repair of Umbilical hernia Estimated blood loss: <10cc Specimen: chandni Findings: suppurative appendicitis, umbilical hernia Anesthesia: General Complications: None Drain(s): KIM drain Transferred to: Recovery Room Condition: Good
[2020-10-06] MEDS ORDERED: NEOSTIGMINE 1 MG/ML -5 ML ONE (11:55)
[2020-10-06] MEDS ORDERED: GLYCOPYRROLATE 0.2 MG/ML SYR ONE (11:56)
--- NOTE | 2020-10-06 13:38 | OP ---
Date of Procedure: 10/06/2020 Surgeon: Trenton Parekh MD Preoperative Diagnosis: Acute appendicitis, morbid obesity, peritonitis. Postoperative Diagnosis: Acute appendicitis, morbid obesity, peritonitis, suppurative appendicitis, and umbilical hernia. Procedure: Laparoscopic appendectomy and open repair of umbilical hernia. Anesthesia: General plus local. Specimen: Appendix and hernia sac. Estimated Blood Loss: Less than 10 cc. Findings: Suppurative appendicitis and umbilical hernia. Drains: KIM #10. Indications: This is a case of a 50-year-old patient diagnosed with acute appendicitis. The benefit s, alternatives, and risks of laparoscopic possible open appendectomy fully explained which include, but not limited to infection, bleeding, damage to adjacent structures, anesthesia complication, [place], a nd even . He also understands this may not relieve any symptoms. He might need more than one s urgical intervention. He understood, signed a consent. Procedure In Detail: The patient was brought to the operating room, placed in supine position. Anes thesia was done without complication. Abdominal area was prepped and draped in a sterile fashion. M arcaine 0.5% was injected for local anesthetic. After time-out, incision was made in the umbilical r egion and immediately we noticed the patient to have umbilical hernia with fatty tissue on it. So, t he umbilical hernia sac was opened and removed. The fascia edges were cleaned and then I proceeded t o place Vicryl #1 inside the fascia. Silvio trocar was carefully introduced. Pneumoperitoneum was o btained. I placed 2 more trocars, 5 mm each on the suprapubic and left lower quadrant under direct v isualization. This allowed me to visualize the area of the right lower quadrant where we noticed a s uppurative appendicitis. A window was created in the base of the appendix, transected that with Endo RAPHAEL 45 mm 3.5 and the mesoappendix with an Endo-RAPHAEL 45 mm 2.5. Appendix removed from abdominal cavi ty using EndoCatch through the umbilical incision. The area was profusely irrigated. Suction was do ne. No bleeding, but since we have extensive infection in that area, I feel better leaving a KIM ai n exiting through one of the trocar site and securing that with 3-0 nylon. We left that in the right lower quadrant. After that, I proceeded then to remove the trocars under direct vision. Deflated p neumoperitoneum. Closed the fascia with #1 Vicryl. Irrigated the subcutaneous tissue, closed with 3 -0 chromic, and skin with sree. Sponge count and instrument counts correct. The patient tolerate d the procedure well. The patient sent to recovery in stable condition. The patient will remain on IV antibiotics. CHELSEY/KATHERINE Voice ID: [id number] Report ID: [id number]
--- NOTE | 2020-10-06 13:47 | HP ---
Date of Admission: 10/06/2020 Reason For Service: Acute appendicitis. History Of Present Illness: This is a case of a 50-year-old patient who comes today with right lower quadrant tenderness associated with nausea, getting worse, started last night. Denies any prior epi sode. Denies any dysuria, hematuria, hematochezia, melena. Denies any recent traveling out of the [facility]. Denies any family member sick at home. The patient is seen in the ER, diagnosed with acute appendicitis and Surgery was called. He does not remember any pain like this before. Past Medical History: Hypertension. Past Surgical History: Surgeries include left inguinal hernia repair. Allergies: MOLD. Medication: He does not remember this time. He believe is Lasix. No previous colonoscopies. Social History: No smoking. No drinking alcohol. Review of Systems: As above. Ten points otherwise unremarkable. Physical Examination: General: The patient is awake, alert. HEENT: Pupils are equal and reactive. Anicteric. Neck: Supple. Chest: Clear. Heart: S1, S2. Abdomen: Right lower quadrant tenderness with Rovsing sign positive. Rectal: Deferred. Genitalia: Deferred. Extremities: Good capillary refill. Neurologic: Cranial nerves 2-12 grossly within normal limits. Laboratory Data: Blood work; WBC count of 11.7 with hemoglobin of 14.3 and chloride is 101 and gluco se 125. UA negative for blood. Imaging: CAT scan of the abdomen and pelvis consistent with acute appendicitis. Assessment: A 50-year-old patient with acute appendicitis. The benefits, alternatives, and risks of laparoscopic possible open appendectomy fully explained which include, but not limited to infection, bleeding, damage to adjacent structures, anesthesia complication, myocardial infarction, and even de ath. He also understands this may not relieve symptoms. He might need more than one surgical interv ention. He understood, signed a consent. The OR was emergently called. The patient is also advised the importance of colonoscopy as soon as possible. CHELSEY/KATHERINE Voice ID: [id number]
--- NOTE | 2020-10-06 18:41 | RAD REPORT ---
EXAM DESCRIPTION: CT - Abdomen Pelvis W Contrast - 10/06/2020 6:33 am COMPARISON: None. CLINICAL HISTORY: [facility] MAIN ABD PAIN TECHNIQUE: CT of the abdomen and pelvis was acquired with IV contrast material. Coronal and sagitt al reconstructions were obtained. Automated exposure control was utilized on this examination as a dose lowering technique. FINDINGS: Lung bases: Clear. Liver: Normal. Gallbladder and biliary: Normal gallbladder. Unremarkable biliary tree. Pancreas: Normal. Spleen: Normal. Adrenal glands: Normal adrenal glands. Kidneys: Normal kidneys Stomach and Small Bowel: The stomach and small bowel are normal. Urinary bladder: Normal. Prostate/Male Urogenital: Normal. Colon and Appendix: The colon is unremarkable. Dilated appendix measuring 9 mm with adjacent fat stra nding. Retroperitoneum and lymph nodes: Normal. Vascular: Mild atherosclerosis. Peritoneal cavity: No ascites or free air. Musculoskeletal and soft tissues: Soft tissues are unremarkable. No aggressive bone lesions. No com pression fracture. IMPRESSION: Acute uncomplicated appendicitis. Electronically signed by: Vinod Wilson MD 10/06/2020 1:07 AM CDT Due to temporary technical issues with the PACS/Fluency reporting system, reports are being signed by the in house radiologists without review as a courtesy to insure prompt reporting. The interpreting radiologist is fully responsible for the content of the report.
[2020-10-06] MEDS: ONDANSETRON 4 MG/2 ML VIAL IV PRN (18:55)
[2020-10-06] MEDS: HYDROCODONE/APAP 5/325 MG TAB PO PRN (23:03)
[2020-10-07] MEDS: PIPER/TAZO/NS 3.375gm 3.375 GM/100 ML BAG IV SCH ×2 (01:27→07:42)
[2020-10-07] MEDS: MORPHINE 4 MG/ML SYR IV PRN ×2 (01:28→08:56)
[2020-10-07] MEDS: D5 0.45 NS 1,000 ML IV SCH ×3 (02:00→12:48)
[2020-10-07] MEDS: HYDROCODONE/APAP 5/325 MG TAB PO PRN (04:32)
[2020-10-07] MEDS: ONDANSETRON 4 MG/2 ML VIAL IV PRN (07:42)
[2020-10-07 08:50] VITALS: O2SAT 94
[2020-10-07 12:08] VITALS: BP 137/74; TEMP 97.1
--- NOTE | 2020-10-07 19:14 | DS ---
Date of Discharge: 10/07/2020 Diagnosis: Suppurative appendicitis. Procedure: Laparoscopic appendectomy. Subjective: This is the case of a 50-year-old patient with above diagnosis. The patient underwent t he procedure dictated above uneventfully. The patient is ambulating. No shortness of breath. No ch est pain. No fever. Tolerating liquid diet. No solid diet completely yet. No calf tenderness. Physical Examination: Chest: Clear. Abdomen: Soft and depressible. KIM drain clear. Extremities: Good capillary refill. Plan: The patient will be going home. He is going to continue liquid diet. On Thursday, he is goi ng to come to my office to remove the KIM drain. He is prescribed antibiotics and pain medication. A dvised once again slowing the diet to minimize the chance of exacerbation of an ileus. No heavy lift ing. May take a shower tomorrow. Record KIM output q.24 hours. CHELSEY/KATHERINE Voice ID: [id number] Report ID: [id number]
--- NOTE | 2020-10-08 15:54 | EKG ---
Test Date: 2020-10-06 Test Time: 00:26:57 Operations Liaison: RR MEASUREMENT RESULTS: Intervals: Rate: 70 ME: 214 QRSD: 110 QT: 394 QTc: 425 [place]: P: 40 ME: 214 QRS: -61 T: 37 INTERPRETIVE STATEMENTS: Sinus rhythm with 1st degree AV block Left axis deviation Incomplete right bundle branch block Inferior infarct, age undetermined Possible Anterolateral infarct, age undetermined Abnormal ECG Compared to ECG 02/19/2018 06:11:57 First degree AV block now present Left-axis deviation now present Incomplete right bundle-branch block now present Ventricular premature complex(es) no longer present Left anterior fascicular block no longer present Myocardial infarct finding still present Electronically Signed On 10-08-20 15:47:43 CDT by Ramon Marquez
== END 2020-10-07 15:36 | disposition home health service (06) ==
LOC: ER 20:38 → INTOOBSV 10-06 01:54 → ERHOLD 10-06 01:54 → 4TH 10-06 03:34
PROVIDERS: ADMIT Surgery; ATTEND Surgery
PROC: 0WQF0ZZ Repair Abdominal Wall, Open Approach (ICD-10-PCS; 2020-10-06)
PROC: 0DTJ4ZZ Resection of Appendix, Percutaneous Endoscopic Approach (ICD-10-PCS; principal; 2020-10-06 10:15)
DX: K35.33 Acute appendicitis with perforation, localized peritonitis, and gangrene, with abscess (principal); K42.9 Umbilical hernia without obstruction or gangrene; I10 Essential (primary) hypertension; E66.01 Morbid (severe) obesity due to excess calories; Z68.41 Body mass index [BMI] 40.0-44.9, adult; Z20.822 Contact with and (suspected) exposure to COVID-19
CPT/HCPCS: 44970; 49585; 96365; 96361; 93005; 85025; 80048; 36415; 80076; 88302; 88304; 81003; 83690; 74177; 94010; 94760 ×4; 96375; 99284; U0003; Q9967; J2704; J0330; J2543 ×3; J3010; J2710; G0378 ×4; J7799 ×3; J7120 ×2; J7030 ×2; J2405 ×3